=== PATIENT | female | born 1955 ===

== ENCOUNTER 2020-06-20 12:45 | Outpatient (REF) | payer MEDICARE, MEDICAID, SELFPAY ==
[2020-06-20 14:01] LABS: Alanine Aminotransferase 17 U/L (0-31); Alkaline Phosphatase 131 U/L (39-117); Anion Gap 11 (12-20); Aspartate Amino Transferase 20 U/L (5-31); Bilirubin Total 0.5 mg/dL (0.0-1.0); Blood Urea Nitrogen 17 mg/dL (9-16); Calcium 9.7 mg/dL (8.4-10.2); Carbon Dioxide 31 mmol/L (22-29); Chloride 104 mmol/L (96-108); Cholesterol 236 mg/dL; Estimated Glomerular Filt Rate > 60; Glucose Fasting 145 mg/dL (60-99); HDL Cholesterol 76 mg/dL; LDL Cholesterol Calculated 137 mg/dl; Potassium 4.1 mmol/l (3.3-5.1); Sodium 142 mmol/L (135-145); Total Protein 7.3 g/dL (6.5-8.0); Triglycerides 115 mg/dL
== END 2020-06-20 12:46 | disposition home or self-care (01) ==
LOC: HO.LAB 12:45
PROVIDERS: PCP Internal Medicine; Visit Provider Internal Medicine
DX: I10 Essential (primary) hypertension (principal)
CPT/HCPCS: 80053; 80061

== ENCOUNTER 2020-11-03 09:44 | Outpatient (REF) | payer MEDICARE, MEDICAID, SELFPAY ==
[2020-11-03 11:26] LABS: Alanine Aminotransferase 14 U/L (0-31); Albumin Level 3.9 g/dL (3.5-5.0); Alkaline Phosphatase 108 U/L (39-117); Anion Gap 15 (12-20); Aspartate Amino Transferase 20 U/L (5-31); Bilirubin Total 0.4 mg/dL (0.0-1.0); Blood Urea Nitrogen 16 mg/dL (9-16); Calcium 9.3 mg/dL (8.4-10.2); Carbon Dioxide 24 mmol/L (22-29); Chloride 106 mmol/L (96-108); Cholesterol 246 mg/dL; Estimated Glomerular Filt Rate > 60; Glucose Fasting 95 mg/dL (60-99); HDL Cholesterol 80 mg/dL; LDL Cholesterol Calculated 150 mg/dl; Potassium 4.3 mmol/L (3.3-5.1); Sodium 141 mmol/L (135-145); Total Protein 7.1 g/dL (6.5-8.0); Triglycerides 83 mg/dL
[2020-11-03 11:57] LABS: Creatinine Urine 137.57 mg/dL; Microalbum/Creatinine Ratio Ur 3.6 ug/mg cr
[2020-11-03 12:48] LABS: Folate 15.5 ng/mL (> or = 4.0); Vitamin B12 704 pg/mL (200-900)
[2020-11-09 12:31] LABS: Vitamin D 25-OH, D2 <4 ng/mL; Vitamin D 25-OH, D3 32 ng/mL; Vitamin D 25-OH, Total 32 ng/mL (30-100)
== END 2020-11-03 09:45 | disposition home or self-care (01) ==
LOC: HO.LAB 09:44
PROVIDERS: PCP Internal Medicine; Visit Provider Internal Medicine
DX: E11.9 Type 2 diabetes mellitus without complications (principal); E55.9 Vitamin D deficiency, unspecified; E53.8 Deficiency of other specified B group vitamins; E78.5 Hyperlipidemia, unspecified
CPT/HCPCS: 36415; 80053; 80061; 82043; 82306; 82607; 82746

== ENCOUNTER 2020-11-09 13:40 | Outpatient (REF) | payer MEDICARE, MEDICAID, SELFPAY ==
[2020-11-09 15:23] LABS: MANUAL DIFF FLAG NO
[2020-11-09 15:29] LABS: Basophils Percent Auto 0.4 % (0-2); Eosinophils Absolute Auto 0.1 X10*3/uL (0.0-0.4); Eosinophils Percent Auto 0.7 % (0-4); Hematocrit 37.7 % (37-47); Hemoglobin 12.1 g/dl (12.0-16.0); Imm Gran Abs Auto 0.02 X10*3/uL (0.00-0.03); Imm Gran Pct Auto 0.3 % (0.0-0.4); Lymphocytes Absolute Auto 2.5 X10*3/uL (1.2-4.9); Lymphocytes Percent Auto 36.6 % (20-40); Mean Corpuscular HGB Conc 32.1 g/dl (31.0-35.0); Mean Corpuscular Hemoglobin 32.2 pg (27.0-33.0); Mean Corpuscular Volume 100.3 fL (80-98); Mean Platelet Volume 10.2 fL (9.4-12.3); Monocytes Absolute Auto 0.6 X10*3/uL (0.1-1.2); Monocytes Percent Auto 8.7 % (2-11); Neutrophils Absolute Auto 3.6 X10*3/uL (2.0-8.3); Neutrophils Percent Auto 53.3 % (45-73); Platelet Count 337 X10*3/uL (160-400); Red Blood Count 3.76 X10*6/uL (4.20-5.50); Red Cell Distribution Width 12.3 % (11.0-16.0); White Blood Count 6.8 X10*3/uL (4.8-10.8)
[2020-11-09 15:52] LABS: Alanine Aminotransferase 13 U/L (0-31); Albumin Level 3.9 g/dL (3.5-5.0); Alkaline Phosphatase 106 U/L (39-117); Anion Gap 13 (12-20); Aspartate Amino Transferase 17 U/L (5-31); Bilirubin Total 0.5 mg/dL (0.0-1.0); Blood Urea Nitrogen 20 mg/dL (9-16); C Reactive Protein 0.45 mg/dL (< or = 0.50); Calcium 9.8 mg/dL (8.4-10.2); Carbon Dioxide 26 mmol/L (22-29); Chloride 108 mmol/L (96-108); Estimated Glomerular Filt Rate 45; Glucose Random 136 mg/dL (60-115); Potassium 4.1 mmol/L (3.3-5.1); Sodium 143 mmol/L (135-145); Total Protein 6.9 g/dL (6.5-8.0)
[2020-11-09 16:15] LABS: Erythrocyte Sedimentation Rate 23 MM/HR (0-20)
== END 2020-11-09 13:41 | disposition home or self-care (01) ==
LOC: HO.LAB 13:40
PROVIDERS: PCP Internal Medicine; Visit Provider Student in an Organized Health Care Education/Training Program
DX: M35.3 Polymyalgia rheumatica (principal); Z79.52 Long term (current) use of systemic steroids
CPT/HCPCS: 36415; 80053; 85025; 85652; 86140; 99212

== ENCOUNTER 2021-01-02 | Outpatient (REF) | payer MEDICARE, MEDICAID, SELFPAY ==
--- NOTE | ~2021-01-02 | CT_ITS ---
EXAMINATION: CT HEAD WITHOUT CONTRAST CLINICAL INFORMATION: Syncope. Collapse. COMPARISON: None. TECHNIQUE: Contiguous axial imaging was performed from the skull base to vertex without intravenous administration of contrast. Coronal and sagittal reformatted images are performed at the CT scanner. [This CT examination was performed using dose optimization techniques as appropriate, variously including the following: *Automated exposure control *Adjustment of mA and/or kV according to patient size (this includes techniques or standardized protocols for targeted exams where dose is matched to indication/reason for exam; i.e. extremities or head) *Use of iterative reconstruction technique] DLP: 766 mGy-cm. FINDINGS: There is no evidence of acute intracranial hemorrhage or territorial infarction. No abnormal mass-effect or midline shift is seen. Johnston to white matter differentiation is well preserved. No extra-axial fluid collections are identified. The ventricles are normal in size. There is no abnormal attenuation within the brain parenchyma. There is no osseous abnormality. The mastoid air cells and visualized portions of the paranasal sinuses are well-aerated. CT/CT head/brain wo con IMPRESSION: No acute intracranial pathology.
--- NOTE | ~2021-01-02 | US_ITS ---
EXAMINATION: US EXTRACRANIAL CAROTID DUPLEX, BILATERAL CLINICAL INFORMATION: This is a 65-year-old female with syncope and collapse. Hypertension. Hyperlipidemia. Diabetes. COMPARISON: None TECHNIQUE: Real-time ultrasound and Doppler techniques (integrating B-mode 2-D vascular images, Doppler spectral analysis and color-flow Doppler imaging) were utilized to interrogate the extracranial carotid arteries, the vertebral arteries and proximal subclavian arteries bilaterally. The degree of stenosis is determined by criteria similar to NASCET. FINDINGS: Right Side: 1. There is minimal atherosclerotic plaque seen in the bifurcation/proximal ICA region. 2. The common carotid artery PSV proximally is 81 cm/s and distally 55 cm/s. 3. The proximal internal carotid artery velocities are 63 cm/s systolic and 11 cm/s diastolic. 4. The proximal external carotid artery PSV is 90 cm/s. 5. The vertebral artery shows antegrade flow. 6. The subclavian artery waveforms are normal. Left Side: 1. There is minimal atherosclerotic plaque seen in the bifurcation/proximal ICA region. 2. The common carotid artery PSV proximally is 86 cm/s and distally 67 cm/s. 3. The proximal internal carotid artery velocities are D5 cm/s systolic and 19 cm/s diastolic. 4. The proximal external carotid artery PSV is 61 cm/s. 5. The vertebral artery shows antegrade flow. 6. The subclavian artery waveforms are normal. US/US carotid duplex BI IMPRESSION: 1. RIGHT: Minimal, non-hemodynamically significant stenosis of the proximal right internal carotid artery corresponding to a 0-49% stenosis by velocity criteria. 2. LEFT: Minimal, non-hemodynamically significant stenosis of the proximal left internal carotid artery corresponding to a 0-49% stenosis by velocity criteria.
== END 2021-01-02 00:01 | disposition home or self-care (01) ==
LOC: HO.CT
PROVIDERS: Visit Provider Internal Medicine
DX: R55 Syncope and collapse (principal)
CPT/HCPCS: 70450; 93880

== ENCOUNTER 2021-01-02 12:36 | Outpatient (REF) | payer MEDICARE, MEDICAID, SELFPAY | END 2021-01-02 12:37 | disposition home or self-care (01) | LOC: HO.US 12:36 | PROVIDERS: Visit Provider Internal Medicine | DX: Z13.89 Encounter for screening for other disorder (principal) ==

== ENCOUNTER → 2021-01-25 13:05 | Outpatient (REF) | payer MEDICARE, MEDICAID, SELFPAY ==
--- NOTE | 2021-01-25 13:09 | CA_ITS ---
Transthoracic Echocardiogram Amended Patient (Last, First, Middle): Mini Porter, Gender: Female Date of : 1955 Age: 65 Procedure Date: 01/25/2021 Procedure Type: Transthoracic Echocardiogram Location: OP Height: 162.56 cm Weight: 89.81 kg BSA: 1.95 m2 Heart Rate: bpm BP: 122 / 80 mmHg Tube Wrapper: Referring MD: Tegan Henriquez MD Symptoms: R55 - Syncope and collapse Study Quality: Fair ECG Rhythm: Sinus Conclusions: - The left ventricular systolic function is mildly decreased. The calculated ejection fraction is 43% by biplane method. - The basal inferior and mid inferior segments are hypokinetic. - No obvious valvular pathology seen on this study. Findings Left Ventricle Normal left ventricular cavity size. There is mildly increased left ventricular wall thickness. The left ventricular systolic function is mildly decreased. The calculated ejection fraction is 43% by biplane method. There is mild global hypokinesis. E/E prime ratio is between 8 and 15 consistent with indeterminate filling pressures. Evidence suggests grade I (mild) diastolic dysfunction. Wall Motion Rest Echo Findings The basal inferior and mid inferior segments are hypokinetic. Right Ventricle Normal right ventricular cavity size and systolic function. Atria Both atria are normal in size. Aortic Valve There is a normal trileaflet aortic valve. There is mild calcification of the aortic valve. There is no aortic valve stenosis. There is trace (trivial) aortic valve regurgitation. Mitral Valve The mitral valve appears normal. There is trace mitral valve regurgitation. There is no mitral valve stenosis. Pulmonic Valve The pulmonic valve is likely normal. Tricuspid Valve Normal tricuspid valve structure. There is no tricuspid valve regurgitation. The pulmonary artery systolic pressure is normal. Great Vessels The aortic annulus, sinuses of valsalva, and asc aorta are normal in size. Venous The inferior vena cava is normal in size and collapses greater than 50% with inspiration. Pericardium/Pleural There is no evidence of pericardial effusion. Prior Study Comparison Changes noted compared to prior study dated: 08/07/2017. LVEF slightly lower with wall motion abnormality. Recommendations, Care & Conclusions No obvious valvular pathology seen on this study. Measurements 2D Linear Measurements IVSd: 1.07 0.6-0.9/0.6-1.0 cm LVIDd: 3.30 3.9-5.3/4.2-5.9 cm LVIDd Index: 1.69 2.4-3.2/2.2-3.1 cm/m2 LVIDs: 2.95 2.0-3.6 cm LVPWd: 1.03 0.7-1.1 cm Ao Root: 3.80 2.1-3.5 cm LA Diam: 2.30 2.7-3.8/3.0-4.0 cm LAIDs Index: 1.18 1.5-2.3 cm/m2 LV Mass: 126.39 67-162/88-224 g LV Mass Index: 64.81 43-95/49-115 g/m2 LVOT Diam: 2.30 3.0+(-)1.3 cm 2D Systolic Function EF 4C: 44.30 >55% EF 2C: 42.10 >55% EF BiP: 43.40 >55% Mitral Valve MV Pk E: 0.42 MV PK A: 0.82 MV Decel Time: 217.00 E/A: 0.50 E'Lateral: 3.05 E'Medial: 4.24 E/E' Med: 9.90 E/E' Lat: 13.80 PHT: 63.00 MVA PHT: 3.49 Decel Leslie: 1.94 Aortic Valve AoV Pk Sravan: 1.16 AoV Mn Sravan: 0.75 AoV VTI: 0.23 AoV Pk Grad: 5.00 Aov Mn Grad: 3.00 MUSHTAQ Cont.VTI: 2.46 LVOT LVOT Pk Sravan: 0.57 LVOT Mn Sravan: 0.33 LVOT VTI: 0.14 LVOT Pk Grad: 1.00 LVOT Mn Grad: 1.00 LVOT Diam: 2.30 LVOT Area: 4.15 Diastolic Function MV Pk E: 0.42 MV Pk A: 0.82 E/A: 0.50 E'Medial: 4.24 E/E' Med: 9.90 E' Laterial: 3.05 E/E' Lat: 13.80 Tricuspid Valve TR Pk Sravan: 2.00 TR Pk Grad: 16.00 RA Press: 3.00 RVSP: 19.00 Great Vessels Aorta Ao Root-2D: 3.80 2.0-3.7 cm Ao Asc: 3.10 2.1-3.4 cm Pulmonary Valve PV Pk Sravan: 0.81 Peak PV Grad: 3.00 Updated in Other Vendor System with Status of Final Patrice Barajas MD electronically signed on 01/25/2021 4:45:57 PM with status of Final
== END ==
LOC: HO.CARD 13:05
PROVIDERS: Visit Provider Internal Medicine
DX: R55 Syncope and collapse (principal)
CPT/HCPCS: 93306; Q9957

== ENCOUNTER 2022-04-27 13:20 | Outpatient (REF) | payer MEDICARE, MEDICAID, SELFPAY ==
[2022-04-27 13:34] LABS: MANUAL DIFF FLAG NO
[2022-04-27 14:25] LABS: Basophils Percent Auto 0.4 % (0-2); Eosinophils Absolute Auto 0.1 X10*3/uL (0.0-0.4); Hematocrit 38.3 % (37.0-47.0); Hemoglobin 12.3 g/dl (12.0-16.0); Imm Gran Abs Auto 0.01 X10*3/uL (0.00-0.03); Imm Gran Pct Auto 0.1 % (0.0-0.4); Lymphocytes Absolute Auto 2.9 X10*3/uL (1.2-4.9); Lymphocytes Percent Auto 41.6 % (20-40); Mean Corpuscular HGB Conc 32.1 g/dl (31.0-35.0); Mean Corpuscular Hemoglobin 30.9 pg (27.0-33.0); Mean Corpuscular Volume 96.2 fL (80.0-98.0); Mean Platelet Volume 10.1 fL (9.4-12.3); Monocytes Absolute Auto 0.6 X10*3/uL (0.1-1.2); Monocytes Percent Auto 7.9 % (2-11); Neutrophils Absolute Auto 3.4 x10*3/uL (2.0-8.3); Platelet Count 355 X10*3/uL (160-400); Red Blood Count 3.98 X10*6/uL (4.20-5.50); Red Cell Distribution Width 12.8 % (11.0-16.0); White Blood Count 6.9 X10*3/uL (4.8-10.8)
[2022-04-27 14:37] LABS: Alanine Aminotransferase 14 U/L (0-31); Albumin Level 3.9 g/dL (3.5-5.0); Alkaline Phosphatase 114 U/L (39-117); Anion Gap 14 (12-20); Aspartate Amino Transferase 17 U/L (5-31); Bilirubin Total 0.3 mg/dL (0.0-1.0); Blood Urea Nitrogen 19 mg/dL (9-16); Carbon Dioxide 27 mmol/L (22-29); Chloride 104 mmol/L (96-108); Cholesterol 325 mg/dL; Estimated Glomerular Filt Rate 48; Glucose Random 83 mg/dL (60-115); HDL Cholesterol 73 mg/dL; LDL Cholesterol Calculated 227 mg/dl; Sodium 141 mmol/L (135-145); Total Protein 7.4 g/dL (6.5-8.0); Triglycerides 125 mg/dL
== END 2022-04-27 13:21 | disposition home or self-care (01) ==
LOC: HO.LAB 13:20
PROVIDERS: PCP Internal Medicine; Visit Provider Nurse Practitioner Family
DX: E78.5 Hyperlipidemia, unspecified (principal); E11.9 Type 2 diabetes mellitus without complications; I10 Essential (primary) hypertension
CPT/HCPCS: 36415; 80053; 80061; 85025

== ENCOUNTER 2022-05-03 09:03 | Outpatient (REF) | payer MEDICARE, MEDICAID, SELFPAY ==
[2022-05-03 10:55] LABS: Cholesterol 329 mg/dL; HDL Cholesterol 71 mg/dL; LDL Cholesterol Calculated 240 mg/dl; Triglycerides 93 mg/dL
== END 2022-05-03 09:04 | disposition home or self-care (01) ==
LOC: HO.LAB 09:03
PROVIDERS: PCP Internal Medicine; Visit Provider Nurse Practitioner Family
DX: E78.5 Hyperlipidemia, unspecified (principal)
CPT/HCPCS: 36415; 80061

== ENCOUNTER 2022-05-15 12:36 | Outpatient (REF) | payer MEDICARE, MEDICAID, SELFPAY ==
--- NOTE | ~2022-05-15 | MM_ITS ---
EXAMINATION: MM SCREENING DIGITAL BREAST TOMOSYNTHESIS, BILATERAL CLINICAL INFORMATION: Screening. Asymptomatic. Bilateral breast reduction surgery. Patient also states history of right breast cancer in 2006 COMPARISON: Mammography: January 04, 2017 and studies dating back to March 23, 2010 TECHNIQUE: Digital breast tomosynthesis is performed in both the craniocaudal and mediolateral oblique views along with computer-aided detection (CAD). Synthesized 2D images are generated from the tomosynthesis. Left exaggerated craniocaudal view also performed. FINDINGS: There are scattered areas of fibroglandular density (ACR BI-RADS breast composition Category b). There are no significant masses, abnormal calcifications, or other abnormalities. MM/MM tomosynthesis screening BI IMPRESSION: No significant changes from prior exam. ASSESSMENT: BI-RADS 1: Negative RECOMMENDATION: Routine annual mammography screening. This patient's information was entered into a reminder system with a target due date for their next mammogram.
--- NOTE | ~2022-05-15 | MM_ITS ---
EXAMINATION: BONE DENSITOMETRY CLINICAL INDICATION: Asymptomatic menopausal state. COMPARISON: Baseline BD dated 04/17/2019. TECHNIQUE: Using a [employer] DXA System (software version: 13.1) manufactured by [employer], dual-energy x-ray absorptiometry was performed of the lumbar spine and left hip. The images are of good technical quality. Summary results are attached. FINDINGS: AP SPINE L1-L4: Current: BMD 1.252 g/cm2, Z-score 1.5, T-score 0.6, normal, 5.7% increase from baseline (<5% change is not significant). Baseline: BMD 1.184 g/cm2. LEFT FEMUR, NECK: Current: BMD 0.832 g/cm2, Z-score -0.4, T-score -1.5, osteopenia. Baseline: BMD 0.913 g/cm2. LEFT FEMUR, TOTAL: Current: BMD 0.884 g/cm2, Z-score -0.2, T-score -1.0, normal, 12.9% decrease from baseline (<5% change is not significant). Baseline: BMD 1.015 g/cm2. IDENTIFIED RISK FACTORS: Rheumatoid arthritis, recurrent falls, height loss. Early menopause, secondary osteoporosis, glucocorticoids (chronic), thiazide, hysterectomy. HISTORY OF FRACTURE: None listed. MEDICATIONS: Vitamin D. MM/XR DEXA axial skeleton IMPRESSION: 1. DIAGNOSIS: Osteopenia based on the lowest T-score value of -1.5 in the femoral neck applying World Health Organization criteria. 2. 10-YEAR FRACTURE RISK PREDICTION, FRAX: Major osteoporotic fracture (clinical spine, forearm, hip or shoulder) 10.0%. Hip fracture 1.4%. 3. Treatment Recommendations: NOF guidelines recommend consideration for treatment in postmenopausal women and men age 50 and older presenting with the following: -A hip or vertebral (clinical or morphometric) fracture. -T-score less than or equal to -2.5 at the femoral neck or spine after appropriate evaluation to exclude secondary causes. -Low bone mass at the hip or spine and a 10-year fracture probability by FRAX of greater than or equal to 3% for hip fracture or greater than or equal to 20% for major osteoporotic fracture based on the [place] adapted WHO algorithm. 4. Other Recommendations: All treatment decisions require clinical judgment and consideration of individual patient factors, including patient preferences, comorbidities, previous drug use, risk factors not captured in the FRAX model (e.g. frailty, falls, vitamin D deficiency, increased bone turnover, interval significant decline in bone density) and possible under or overestimation of fracture risk by FRAX. Additional medical evaluation for secondary cause of low bone mineral density may be appropriate. FUTURE SCAN RECOMMENDATION: People with diagnosed cases of osteoporosis or at high risk for fracture should have regular bone mineral density tests. For patients eligible for Medicare, routine testing is allowed once every 2 years. The testing frequency can be increased to one year for patients who have rapidly progressing disease, those who are receiving or discontinuing medical therapy to restore bone mass, or have additional risk factors.
== END 2022-05-15 12:37 | disposition home or self-care (01) ==
LOC: HO.MAMMO 12:36
PROVIDERS: PCP Internal Medicine; Visit Provider Nurse Practitioner Family
DX: Z12.31 Encounter for screening mammogram for malignant neoplasm of breast (principal); Z13.820 Encounter for screening for osteoporosis; Z78.0 Asymptomatic menopausal state
CPT/HCPCS: 77063; 77067; 77080

== ENCOUNTER 2023-01-15 11:03 | Outpatient (AMB) | payer MEDICARE, MEDICAID, SELFPAY ==
[2023-01-15 11:17] VITALS: BP 136/69; PULSE 64; BMI 36.6
--- NOTE | 2023-01-15 11:17 | A.OFFVIS_ITS ---
Intake Vital Signs 01/15/23 11:17 Height 5 ft Weight 187 lb 6.287 oz BMI 36.6 BP 136/69 Blood Pressure Location Lt radial Position Sitting Pulse 64 Intake Visit Reasons: Colonoscopy Screening Intake Note: Mini presents in office as a new.patient for a colonoscopy screening PT CC: Stomach pains - she was given a medication in the DR (Linzess 290MCG) and she states she needs a Rx because she cannot afford the medication. She states that the Linzess works for her so much and she is unable to get it without prescription. She states that she has CIC. 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 No polyps found. Patient has a family history of colorectal cancer and screening is to be done every 5 years. Patient's father was diagnosed with colorectal cancer as well as patient's brother. Patient will be going back to [facility] [place] and will be back in September. She is requesting to have the procedure then. Patient denies melena, hematochezia, unintentional weight loss or ribbon like stools. Patient denies any dyspepsia, dysphagia or odynophagia. Patient states that she was given Linzess in [facility] [place] and did well and is requesting a script. Patient requests 90 day supply patient denies any other GI concerning symptoms. 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 Postmenopausal Syncope Surgical History History of abdominoplasty History of bilateral breast reduction surgery History of colonoscopy History of total abdominal hysterectomy Family History Father Hypertension Mother Hypertension Cancer Maternal Grandmother Stroke Social History Housing: Apartment Alcohol intake: never Patient Tobacco Use Status: Never used Tobacco service: No Current occupational status: retired Cognitive needs: No Hearing needs: No Vision needs: No Review of Systems Const Denies weight gain and Denies weight loss ENT Reports no additional complaints, Denies dysphagia and Denies odynophagia Card Reports no additional complaints Resp Reports no additional complaints GI Denies abdominal pain, Denies belching, Denies melena, Denies bloating, Denies change in bowel habits, Reports constipation, Denies dysphagia, Denies excessive flatus, Denies dyspepsia, Denies heartburn, Denies diarrhea, Denies loose stools, Denies nausea, Denies odynophagia and Denies vomiting Reports no additional complaints Musc Reports no additional complaints Neuro Reports no additional complaints Psych Reports no additional complaints Endo Reports no additional complaints Physical Exam Vital Signs: Last Vital Signs Pulse 64 01/15/23 11:17 BP 136/69 01/15/23 11:17 BMI result Body Mass Index 36.6 Const General: healthy appearing, no acute distress and well developed Nutritional Appearance: obese Orientation/consciousness: patient oriented x3 HEENT Head: Yes normal to inspection, Yes normocephalic and Yes atraumatic Face and sinus: Yes normal facial exam Mouth: Normal oral and palatal mucosa present Throat: Yes posterior oropharynx normal, Yes tonsils normal and Yes uvula midline Eyes General: appearance normal, both eyes and all related structures Neck Neck: Yes normal visual inspection, Yes full ROM and Yes trachea midline Thyroid: Thyroid normal Resp Effort & Inspection: normal respiratory effort, able to speak in complete sentences, no tracheal deviation and symmetric chest movement Auscultation: clear to auscultation bilaterally Cardio Rate: regular rate Heart sounds: S1 normal heart sound present and S2 normal heart sound present GI Inspection: Yes normal to inspection, No distended and Yes obesity Palpation (GI): Soft to palpation, not firm, nontender and No hepatosplenomegaly present Auscultation: normal bowel sounds General: Yes no CVA tenderness Back/Spine/Pelvis Back: no CVA tenderness Skin General skin exam: elasticity normal, turgor normal and dry skin Neuro General: patient oriented x3 Psych Appearance: grossly normal Mental Status: mental status grossly normal Speech and movement: Normal speech and movement present Affect: normal affect Assessment & Plan Assessment & Plan (1) 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: Code(s): K59.09 - Other constipation Plan: Patient will be given script for Linzess as requested. Patient was also encouraged to increase fluid intake and activity to promote better bowel motility. (2) Screening for colon cancer: Code(s): Z12.11 - Encounter for screening for malignant neoplasm of colon Plan: Patient is leaving to [facility] [place] next week January 23. Will make appointment for colonoscopy in September when she returns. Patient denies any melena, hematochezia, unintentional weight loss or ribbon like stools. Patient reports that she has palpitations and chest pressure was seen in the hospital in [facility] [place] will send referral for Cardiology to clear her before the procedure (3) Family history of colorectal cancer: Code(s): Z80.0 - Family history of malignant neoplasm of digestive organs Plan: As mentioned above in HPI patient has a family history of colorectal cancer patient's father and her brother were diagnosed with colorectal cancer. Patient denies any melena, hematochezia, unintentional weight loss or ribbon like stoo ls. Will book colonoscopy in September, patient is leaving for [facility] [place] January 23. Patient was encouraged to get it done in [facility] [place] if she is on able to wait till she returns. Patient is agreeable to this plan and verbalizes understanding of instructions. She was given the opportunity to ask questions and all questions answered. Thank you for allowing me to participate in her care Orders: Referrals Cardiology Referral [id number] - Encounter for preprocedural cardiovascular examination Piper Julio Hernandez, [employer] COLL[employer] SETTER-BC Medications: New linaclotide (Linzess) 290 mcg PO QAM 30 caps 4RF K59.00 - Constipation, unspecified Piper D David, [employer]LL[employer] SETTER-BC linaclotide (Linzess) 290 mcg PO QAM 90 caps 2RF K59.00 - Constipation, unspecified Piper D David, [employer]LL[employer]-BC Refilled atorvastatin 80 mg PO DAILY 90 tabs 3RF 90 days E78.5 - Hyperlipidemia, unspecified Tegan Henriquez MD fluticasone propionate 50 mcg/actuation administer into each nostril 1 spray intranasal DAILY 16 grams 0RF Tegan Henriquez MD hydrochlorothiazide 25 mg PO DAILY 90 tabs 3RF 90 days Tegan Hneriquez MD Quality Reporting (2019) Adult (CMS 138/2/22/69) Smoking risk assessment performed?: Yes Coding Level of Care Code New Pt Level 3 (82246) Diagnoses 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 K59.09 Screening for colon cancer Z12.11 Family history of colorectal cancer Z80.0 Time Spent (min) 40 Comment 30 minutes spent with patient and additional 10 minutes spent reviewing her records
== END 2023-01-15 12:00 | disposition home or self-care (01) ==
PROVIDERS: PCP Internal Medicine; Visit Provider Nurse Practitioner Family
DX: K59.09 Other constipation (principal); Z12.11 Encounter for screening for malignant neoplasm of colon; Z80.0 Family history of malignant neoplasm of digestive organs
CPT/HCPCS: 99203

== ENCOUNTER → 2023-01-15 11:03 | Outpatient (BNVA) | payer MEDICARE, MEDICAID, SELFPAY | PROVIDERS: PCP Internal Medicine; Visit Provider Nurse Practitioner Family | DX: Z12.11 Encounter for screening for malignant neoplasm of colon (principal); K59.09 Other constipation; Z80.0 Family history of malignant neoplasm of digestive organs | CPT/HCPCS: 99202 ==

== ENCOUNTER 2023-01-18 10:23 | Outpatient (REF) | payer MEDICARE, MEDICAID, SELFPAY ==
[2023-01-18 10:47] LABS: MANUAL DIFF FLAG NO
[2023-01-18 11:56] LABS: Appearance Urine Clear; Color Urine Yellow; Glucose Urine UA Negative (Negative); Leukocyte Esterase Urine Negative (Negative); Nitrite Urine Negative (Negative); PH 5.5 (5.0-9.0); Urine Blood Negative (Negative); Urine Ketones Negative (Negative); Urine Protein Negative (Neg-Trace)
[2023-01-18 12:00] LABS: Basophils Percent Auto 0.5 % (0-2); Eosinophils Absolute Auto 0.1 X10*3/uL (0.0-0.4); Eosinophils Percent Auto 1.6 % (0-4); Hematocrit 39.1 % (37.0-47.0); Hemoglobin 12.6 g/dl (12.0-16.0); Imm Gran Abs Auto 0.02 X10*3/uL (0.00-0.03); Imm Gran Pct Auto 0.4 % (0.0-0.4); Lymphocytes Absolute Auto 2.6 X10*3/uL (1.2-4.9); Lymphocytes Percent Auto 46.1 % (20-40); Mean Corpuscular HGB Conc 32.2 g/dl (31.0-35.0); Mean Corpuscular Hemoglobin 32.1 pg (27.0-33.0); Mean Corpuscular Volume 99.5 fL (80.0-98.0); Mean Platelet Volume 10.6 fL (9.4-12.3); Monocytes Absolute Auto 0.4 X10*3/uL (0.1-1.2); Monocytes Percent Auto 7.5 % (2-11); Neutrophils Absolute Auto 2.5 x10*3/uL (2.0-8.3); Neutrophils Percent Auto 43.9 % (45-73); Platelet Count 315 X10*3/uL (160-400); Red Blood Count 3.93 X10*6/uL (4.20-5.50); Red Cell Distribution Width 12.7 % (11.0-16.0); White Blood Count 5.6 X10*3/uL (4.8-10.8)
[2023-01-18 12:31] LABS: Cholesterol 245 mg/dL; HDL Cholesterol 77 mg/dL; LDL Cholesterol Calculated 144 mg/dl; Triglycerides 123 mg/dL
[2023-01-18 12:40] LABS: Creatinine Urine 99.47 mg/dL
[2023-01-18 12:44] LABS: Alanine Aminotransferase 21 U/L (0-31); Albumin Level 3.9 g/dL (3.5-5.0); Alkaline Phosphatase 107 U/L (39-117); Anion Gap 11 (12-20); Aspartate Amino Transferase 21 U/L (5-31); Bilirubin Total 0.8 mg/dL (0.0-1.0); Blood Urea Nitrogen 22 mg/dL (9-16); Calcium 10.9 mg/dL (8.4-10.2); Carbon Dioxide 26 mmol/L (22-29); Chloride 109 mmol/L (96-108); Cholesterol 244 mg/dL; Estimated Glomerular Filt Rate > 60; Glucose Fasting 110 mg/dL (60-99); HDL Cholesterol 77 mg/dL; LDL Cholesterol Calculated 143 mg/dl; Potassium 4.4 mmol/L (3.3-5.1); Sodium 142 mmol/L (135-145); Total Protein 7.7 g/dL (6.5-8.0); Triglycerides 123 mg/dL
[2023-01-18 12:52] LABS: TSH reflex Free T4 1.82 uIU/mL (0.32-4.0); Vitamin D 25-OH Total 41.1 ng/mL (>30)
[2023-01-18 13:02] LABS: Folate 8.5 ng/mL (> or = 4.0); Vitamin B12 775 pg/mL (200-900)
== END 2023-01-18 10:24 | disposition home or self-care (01) ==
LOC: HO.LAB 10:23
PROVIDERS: PCP Internal Medicine; Visit Provider Nurse Practitioner Family
DX: E78.5 Hyperlipidemia, unspecified (principal); E11.9 Type 2 diabetes mellitus without complications; R68.89 Other general symptoms and signs; E83.52 Hypercalcemia; M85.80 Other specified disorders of bone density and structure, unspecified site
CPT/HCPCS: 36415; 80053; 80061; 81003; 82043; 82306; 82607; 82746; 84443; 85025

== ENCOUNTER 2023-04-18 07:53 | Outpatient (AMB) | payer MEDICARE, MEDICAID, SELFPAY ==
--- NOTE | 2023-04-18 08:31 | A.OFFVIS_ITS ---
Intake Vital Signs 04/18/23 08:34 Height 5 ft 4 in Weight 202 lb 6.15 oz BMI 34.7 BP 160/88 H Blood Pressure Location Lt brachial Position Sitting Pulse 61 Intake Visit Reasons: prev HS 2018/ palps/cp/sob/ [id number] Intake Note: NPV w/ EKG Community Health Educator Required: No Accompanied by: Self / Same As Patient Allergies hydralazine Allergy (Intermediate, Verified 04/18/23 08:35) hypotension Iodinated Contrast Media [IV CONTRAST] Allergy (Intermediate, Verified 04/18/23 08:35) BLISTERED RASH metformin Allergy (Intermediate, Verified 04/18/23 08:35) constipation Medication List - Last Reconciled 04/18/23 by Patrice Barajas MD atorvastatin 80 mg PO DAILY 90 days bisoprolol fumarate 5 mg PO DAILY blood sugar diagnostic (FreeStyle Lite Strips) test daily blood-glucose meter (FreeStyle Lite Meter kit) test daily budesonide-formoterol 160-4.5 mcg/actuation 2 puffs inhalation BID candesartan 32 mg PO DAILY fluticasone propion-salmeterol 500-50 mcg/dose 1 ea PO BID fluticasone propionate 50 mcg/actuation 1 spray intranasal DAILY gabapentin 300 mg PO BID 90 days hydrochlorothiazide 25 mg PO DAILY 90 days ibuprofen 600 mg PO Q8H PRN lancets (FreeStyle Lancets) test daily linaclotide (Linzess) 290 mcg PO QAM pioglitazone 30 mg PO DAILY semaglutide 1 mg (0.75 mL) subcut QWEEK HPI HPI Comments History of Present Illness Details Mini has been referred for cardiac evaluation. It seems she needs to go for colonoscopy. We have last seen her in 2018. There is a history of cardiac catheterization 2014 that had revealed only minor irregularities. Otherwise, no known cardiac issues like valvular heart disease or arrhythmias or cardiomyopathy. She does have risk factors including hypertension and diabetes. She states that when she is exerting herself like doing physical activity she can feel short of breath. However, absolutely has no anginal-type symptoms. Sometimes she may feel a vague discomfort in the chest but when she starts doing something physical like walking, she actually feels better and hence this is not cardiac at all. She states she is from [facility] [place] and actually spends more time there and only comes here for medical appointments. Also patient states she has gained about 20 lb or so recently. That might also cause shortness of breath. 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 Polymyalgia rheumatica Postmenopausal Syncope Surgical History History of abdominoplasty History of bilateral breast reduction surgery History of colonoscopy History of total abdominal hysterectomy Family History Father Hypertension Mother Hypertension Cancer Maternal Grandmother Stroke Social History Housing: Apartment Alcohol intake: never Patient Tobacco Use Status: Never used Tobacco service: No Current occupational status: retired Cognitive needs: No Hearing needs: No Vision needs: No Review of Systems Const Denies chills, Denies daytime sleepiness, Denies fatigue, Denies fever(s), Denies frequent falls, Denies night sweats, Denies snoring, Denies weakness, Denies weight gain and Denies weight loss Eyes Denies loss of vision ENT Denies dizziness and Denies hearing loss Card Denies chest pain, Denies chest pain with activity, Denies syncope, Denies rapid heart rate, Denies edema, Denies claudication, Denies leg edema, Denies lightheadedness, Denies palpitations, Denies dyspnea, Denies dyspnea on exertion and Denies orthopnea Resp Denies cough, Denies excessive phlegm production, Denies dyspnea, Denies dyspnea on exertion, Denies snoring and Denies wheezing GI Denies abdominal pain, Denies hematochezia, Denies change in bowel habits, Denies change in stool character, Denies heartburn, Denies nausea and Denies vomiting Denies hematuria, Denies urinary frequency and Denies dysuria Musc Denies arthralgias, Denies muscle weakness, Denies numbness and Denies tingling Skin/Breast Denies nail changes and Denies rash Neuro Denies Abnormal speech present, Denies dizziness, Denies syncope, Denies frequent falls, Denies loss of vision, Denies memory loss, Denies numbness, Denies tingling and Denies weakness Psych Denies depression and Denies memory loss Endo Denies fatigue and Denies palpitations Aller/Immun Denies wheezing Physical Exam Vital Signs: Last Vital Signs Pulse 61 04/18/23 08:34 BP 160/88 H 04/18/23 08:34 BMI result Body Mass Index 34.7 Const General: comfortable and no acute distress Orientation/consciousness: patient oriented x3 HEENT Other: Unremarkable Head: Yes normal to inspection Neck Neck: Yes normal visual inspection Chest Chest palpation & inspection: normal inspection of the chest Resp Auscultation: clear to auscultation bilaterally Cardio Palpation: normal PMI Heart sounds: S1 normal heart sound present, S2 normal heart sound present, no gallops, no murmurs and no rubs GI Palpation (GI): Soft to palpation Back/Spine/Pelvis Other: unremarkable Skin General skin exam: no rashes or lesions noted Neuro General: patient oriented x3 Speech: No Abnormal speech present Extrem General: Yes normal to inspection Psych Mental Status: mental status grossly normal Office Procedures EKG Details: EKG with sinus rhythm at 61/Min; no significant ST-T changes and otherwise [place]remarkable[place] [id number], Complete Assessment & Plan Assessment & Plan (1) SOB (shortness of breath): Code(s): R06.02 - Shortness of breath (2) Essential hypertension: Code(s): I10 - Essential (primary) hypertension Plan Per documentation, prior cardiac catheterization 2014 with minimal irregularities but otherwise unremarkable. Shortness of breath could be multifactorial. Weight gain of 20 lb might play a role. High blood pressure may also play a role. We can get an echocardiogram for LV function assessment and any diastolic dysfunction. Otherwise, mainly primary risk factor modification. She states she is going back to [place] in a few weeks and hence will need to coordinate any appointments accordingly. Orders: Orders CA echo transthoracic complete Today R06.02 - Shortness of breath Quality Reporting (2019) Adult ([facility] 138/09/12/68) Smoking risk assessment performed?: Yes Patient Tobacco Use Status: Never used Tobacco Coding Level of Care Code New Pt Level 3 (74588) Diagnoses SOB (shortness of breath) R06.02 Essential hypertension I10 CPT Codes EKG - CPT: 33798-[id number], Complete ([id number])
[2023-04-18 08:34] VITALS: BP 160/88; PULSE 61; BMI 34.7
== END 2023-04-18 08:55 | disposition home or self-care (01) ==
PROVIDERS: PCP Internal Medicine; Visit Provider Internal Medicine
DX: R06.02 Shortness of breath (principal); I10 Essential (primary) hypertension
CPT/HCPCS: 93010; 99213

== ENCOUNTER → 2023-04-18 07:53 | Outpatient (BNVA) | payer MEDICARE, MEDICAID, SELFPAY | PROVIDERS: PCP Internal Medicine; Visit Provider Internal Medicine | DX: R06.02 Shortness of breath (principal); I10 Essential (primary) hypertension | CPT/HCPCS: 93005; 99212 ==

== ENCOUNTER → 2023-04-19 11:13 | Outpatient (BNVA) | payer MEDICARE, MEDICAID, SELFPAY | PROVIDERS: PCP Internal Medicine; Visit Provider Physician Assistant Surgical ==

== ENCOUNTER 2023-04-22 14:04 | Outpatient (AMB) | payer OTHER, SELFPAY ==
[2023-04-22 14:08] VITALS: BP 108/77; PULSE 78; O2SAT 96; BMI 33.5
--- NOTE | 2023-04-22 14:08 | MHC.OFFVIS ---
Intake Vital Signs 04/22/23 14:08 Height 5 ft 4 in Weight 195 lb 1.745 oz BMI 33.5 BP 108/77 Blood Pressure Location Rt brachial Position Sitting Pulse 78 Pulse Source Doppler Pulse Oximetry (%) 96 Oxygen Delivery Method Room Air Intake Visit Reasons: COPD Allergies hydralazine Allergy (Intermediate, Verified 04/22/23 14:13) hypotension Iodinated Contrast Media [IV CONTRAST] Allergy (Intermediate, Verified 04/22/23 14:13) BLISTERED RASH metformin Allergy (Intermediate, Verified 04/22/23 14:13) constipation HPI COPD HPI Details 67-year-old lady, lifetime nonsmoker, previously treated by [facility] pulmonary for ?COPD, also with underlying history of exposure to heart pulled dusts presents complaining of wheezing and cough in when in the [place], but not when in [place] she does have a dog. She denies family history of lung disease. Patient is using Advair 500 and albuterol MDI with suboptimal control of her symptoms. She denies recent exacerbations. [facility] Medical History B12 deficiency 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 COPD (chronic obstructive pulmonary disease) Diabetes mellitus Dyslipidemia Essential hypertension Family history of colorectal cancer terminal [facility] systemic steroid user Polymyalgia rheumatica Postmenopausal Syncope Surgical History History of abdominoplasty History of bilateral breast reduction surgery History of colonoscopy History of total abdominal hysterectomy Family History Father Hypertension Mother Hypertension Cancer Maternal Grandmother Stroke Social History Housing: Apartment Alcohol intake: never Patient Tobacco Use Status: Never used Tobacco service: No Current occupational status: retired Cognitive needs: No Hearing needs: No Vision needs: No Review of Systems Const Denies daytime sleepiness, Denies excessive sweating, Denies fatigue, Denies fever(s), Denies lethargy, Denies malaise, Denies night sweats, Denies snoring and Denies weight loss Eyes Denies blurry vision and Denies itchy eyes ENT Denies nasal congestion, Denies post nasal drip, Denies sinus pain, Denies sinus pressure and Denies other ( Thrush) Card Denies chest pain, Denies pedal edema, Denies dyspnea, Denies orthopnea and Denies paroxysmal nocturnal dyspnea Resp Denies cough, Denies hemoptysis, Denies excessive phlegm production, Denies dyspnea, Denies snoring and Reports wheezing GI Denies abdominal pain and Denies heartburn Musc Denies myalgias, Denies arthralgias and Denies joint swelling Skin/Breast Denies rash Neuro Denies memory loss and Denies seizure-like activity Psych Denies abnormal sleep pattern, Denies anxiety and Denies memory loss Endo Denies excessive sweating, Denies fatigue and Denies heat intolerance Keith/Lymph Denies easy bruising Aller/Immun Denies itchy eyes, Denies seasonal rhinorrhea and Reports wheezing Physical Exam Vital Signs: Last Vital Signs Pulse 78 04/22/23 14:08 BP 108/77 04/22/23 14:08 Pulse Ox 96 04/22/23 14:08 Oxygen Delivery Method Room Air 04/22/23 14:08 BMI result Body Mass Index 33.5 Const General: no acute distress and alert Nutritional Appearance: not obese Orientation/consciousness: Other orientation findings ( oriented) HEENT Head: Yes atraumatic Eyes General: appearance normal, both eyes and all related structures Sclerae: sclerae normal EOM: EOMs intact bilaterally Neck Neck: Yes supple Lymphatic: no lymphadenopathy noted Resp Effort & Inspection: normal respiratory effort and no use of accessory muscles Auscultation: clear to auscultation bilaterally Cardio Rate: regular rate Rhythm: regular rhythm Heart sounds: no gallops, no murmurs and no rubs Skin General skin exam: other ( warm) Extrem General: No clubbing, No cyanosis and No edema Assessment & Plan Assessment & Plan (1) Asthma: Code(s): J45.909 - Unspecified asthma, uncomplicated Plan: Likely underlying asthma of unclear severity. Will obtain full PFT. Will continue on Advair 500 and albuterol MDI. (2) ILD (interstitial lung disease): Code(s): J84.9 - Interstitial pulmonary disease, unspecified Plan: Possible underlying interstitial lung disease secondary to exposure to dusts. Will obtain CT chest for further evaluation. (3) Environmental allergies: Code(s): Z91.09 - Other allergy status, other than to drugs and biological substances Plan: Will obtain IgE level, CBC with differential, and RAST for further evaluation. Orders: Orders Complete Blood Count Auto Diff Today J45.909 - Unspecified asthma, uncomplicated Rast Allergen Today J45.909 - Unspecified asthma, uncomplicated PFT pulmonary function test Today J45.909 - Unspecified asthma, uncomplicated Quality Reporting (2019) Adult ([facility] 138/09/12/68) Smoking risk assessment performed?: Yes Patient Tobacco Use Status: Never used Tobacco Coding Level of Care Code New Pt Level 4 (04427) Diagnoses Asthma J45.909 ILD (interstitial lung disease) J84.9 Environmental allergies Z91.09
== END 2023-04-22 14:39 | disposition home or self-care (01) ==
PROVIDERS: PCP Internal Medicine; Referring Provider Internal Medicine; Visit Provider Internal Medicine Pulmonary Disease
DX: J45.909 Unspecified asthma, uncomplicated (principal); J84.9 Interstitial pulmonary disease, unspecified; Z91.09 Other allergy status, other than to drugs and biological substances
CPT/HCPCS: 99204

== ENCOUNTER 2023-04-22 14:04 | Outpatient (REF) | payer OTHER, SELFPAY ==
[2023-04-22 15:04] LABS: MANUAL DIFF FLAG NO
[2023-04-22 15:37] LABS: Basophils Percent Auto 0.4 % (0-2); Eosinophils Absolute Auto 0.1 X10*3/uL (0.0-0.4); Eosinophils Percent Auto 0.7 % (0-4); Hematocrit 36.8 % (37.0-47.0); Hemoglobin 11.8 g/dl (12.0-16.0); Imm Gran Abs Auto 0.02 X10*3/uL (0.00-0.03); Imm Gran Pct Auto 0.3 % (0.0-0.4); Lymphocytes Absolute Auto 2.6 X10*3/uL (1.2-4.9); Lymphocytes Percent Auto 38.4 % (20-40); Mean Corpuscular HGB Conc 32.1 g/dl (31.0-35.0); Mean Corpuscular Hemoglobin 32.5 pg (27.0-33.0); Mean Corpuscular Volume 101.4 fL (80.0-98.0); Monocytes Absolute Auto 0.5 X10*3/uL (0.1-1.2); Monocytes Percent Auto 7.3 % (2-11); Neutrophils Absolute Auto 3.6 x10*3/uL (2.0-8.3); Neutrophils Percent Auto 52.9 % (45-73); Platelet Count 303 X10*3/uL (160-400); Red Blood Count 3.63 X10*6/uL (4.20-5.50); Red Cell Distribution Width 13.3 % (11.0-16.0); White Blood Count 6.8 X10*3/uL (4.8-10.8)
== END 2023-04-22 14:05 | disposition home or self-care (01) ==
LOC: HO.LAB 14:04
PROVIDERS: PCP Internal Medicine; Visit Provider Internal Medicine Pulmonary Disease
DX: J45.909 Unspecified asthma, uncomplicated (principal); Z91.09 Other allergy status, other than to drugs and biological substances
CPT/HCPCS: 36415; 82785; 85025; 86003

== ENCOUNTER 2023-05-08 13:27 | Outpatient (AMB) | payer OTHER, SELFPAY ==
--- NOTE | 2023-05-08 13:41 | MHC.OFFVIS ---
Intake Vital Signs 05/08/23 13:46 05/08/23 14:01 05/08/23 14:01 Height 5 ft 4 in Weight 200 lb 2.876 oz BMI 34.4 BP 112/62 114/62 100/60 Blood Pressure Location Lt brachial Lt brachial Lt brachial Position Supine Sitting Standing Pulse 68 70 71 Pulse Source Pulse Oximeter Pulse Oximetry (%) 96 Oxygen Delivery Method Room Air Intake Visit Reasons: F/U per pt Accompanied by: self Allergies hydralazine Allergy (Intermediate, Verified 05/08/23 13:48) hypotension Iodinated Contrast Media [IV CONTRAST] Allergy (Intermediate, Verified 05/08/23 13:48) BLISTERED RASH metformin Allergy (Intermediate, Verified 05/08/23 13:48) constipation Medication List - Last Reconciled 05/08/23 by Stephany White NP albuterol sulfate 90 mcg/actuation 2 puffs inhalation Q4-6H PRN 30 days atorvastatin 80 mg PO DAILY 90 days bisoprolol fumarate 5 mg PO DAILY blood sugar diagnostic (FreeStyle Lite Strips) test daily blood-glucose meter (FreeStyle Lite Meter kit) test daily candesartan 32 mg PO DAILY fluticasone propion-salmeterol 500-50 mcg/dose 1 ea PO BID 30 days fluticasone propionate 50 mcg/actuation 1 spray intranasal DAILY gabapentin 300 mg PO BID 90 days hydrochlorothiazide 25 mg PO DAILY 90 days ibuprofen 600 mg PO Q8H PRN lancets (FreeStyle Lancets) test daily linaclotide (Linzess) 290 mcg PO QAM pioglitazone 30 mg PO DAILY semaglutide 1 mg (0.75 mL) subcut QWEEK HPI HPI Comments History of Present Illness Details 67-year-old female presents today for a follow-up per her request. She state she overall feels great but she has episodes that she feels weak and gets blurry vision. She went to an urgent care and was orthostatic. She also reports she gets some palpitations - reports it feels her heart is going fast and occasionally skips a beat. When she gets the palpitations she gets short of breath. Denies syncope or near-syncop.e Reports her blood pressures at home are 150s/90s in the morning and at night. She reports she has checked her blood sugar when this happens and it has been good. She hydrates and eats well. 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 Polymyalgia rheumatica Syncope B12 deficiency Postmenopausal Diabetes mellitus Dyslipidemia COPD (chronic obstructive pulmonary disease) Essential hypertension Surgical History History of colonoscopy History of total abdominal hysterectomy History of bilateral breast reduction surgery History of abdominoplasty Family History Father Hypertension Mother Hypertension Cancer Maternal Grandmother Stroke Social History Housing: Apartment Alcohol intake: never Patient Tobacco Use Status: Never used Tobacco service: No Current occupational status: retired Cognitive needs: No Hearing needs: No Vision needs: No Review of Systems Const Denies chills, Denies fatigue, Denies fever(s), Denies frequent falls, Denies weakness, Denies weight gain and Denies weight loss ENT Denies dizziness Card Denies chest pain, Denies chest pain with activity, Denies syncope, Denies rapid heart rate, Denies pedal edema, Denies irregular heart rhythm, Denies leg edema, Denies lightheadedness, Denies palpitations, Denies dyspnea, Denies dyspnea on exertion, Denies orthopnea and Denies other (LOC) Resp Denies cough, Denies dyspnea and Denies dyspnea on exertion GI Denies hematochezia and Denies change in bowel habits Musc Denies abnormal gait, Denies arthralgias, Denies muscle weakness, Denies numbness, Denies radiating pain into limb and Denies tingling Neuro Denies abnormal gait, Denies dizziness, Denies syncope, Denies frequent falls, Denies numbness, Denies tingling and Denies weakness Endo Denies fatigue and Denies palpitations Physical Exam Vital Signs: Last Vital Signs Pulse 71 05/08/23 14:01 BP 100/60 05/08/23 14:01 Pulse Ox 96 05/08/23 13:46 Oxygen Delivery Method Room Air 05/08/23 13:46 BMI result Body Mass Index 34.4 Const General: healthy appearing and no acute distress Orientation/consciousness: patient oriented x3 HEENT Head: Yes normal to inspection Eyes General: appearance normal, both eyes and all related structures Neck Neck: Yes normal visual inspection Chest Chest palpation & inspection: normal inspection of the chest Resp Effort & Inspection: normal respiratory effort Auscultation: clear to auscultation bilaterally Cardio Jugular venous distension: no JVD Palpation: normal PMI Rate: regular rate Rhythm: regular rhythm Heart sounds: S1 normal heart sound present, S2 normal heart sound present, no click, no gallops, no murmurs and no rubs GI Inspection: Yes normal to inspection Palpation (GI): Soft to palpation Skin General skin exam: no rashes or lesions noted Neuro General: patient oriented x3 Extrem General: Yes normal to inspection Psych Appearance: grossly normal Assessment & Plan Assessment & Plan (1) Palpitation: Code(s): R00.2 - Palpitations (2) Orthostatic hypotension: Code(s): I95.1 - Orthostatic hypotension Plan Will do a three day holter to evaluate for arrhythmias. Discontinue hydrochlorothiazide and monitor blood pressures periodically. Hydrate well. Report any new or worsneing symptoms. She is leaving for the [facility] [employer] on the - she will call when she returns for her follow-up. Stressed the importance of a follow-up. Will call with results of holter. Orders: Orders ECG 3 day holter monitor 05/08/23 R00.2 - Palpitations Medications: Discontinued hydrochlorothiazide Discontinued Reason: Doctor's Order 25 mg PO DAILY 90 days 90 tabs 3RF Quality Reporting (2019) Adult ([facility] 138/2/22/69) Smoking risk assessment performed?: Yes Patient Tobacco Use Status: Never used Tobacco Coding Level of Care Code Est Pt Level 3 (04164) Diagnoses Palpitation R00.2 Orthostatic hypotension I95.1
[2023-05-08 13:46] VITALS: BP 112/62; PULSE 68; O2SAT 96; BMI 34.4
[2023-05-08 14:01] VITALS: BP 100/60; BP 114/62; PULSE 70; PULSE 71
== END 2023-05-08 14:23 | disposition home or self-care (01) ==
PROVIDERS: PCP Internal Medicine; Visit Provider Nurse Practitioner
DX: R00.2 Palpitations (principal); I95.1 Orthostatic hypotension
CPT/HCPCS: 99213

== ENCOUNTER → 2023-05-08 13:27 | Outpatient (BNVA) | payer OTHER, SELFPAY | PROVIDERS: PCP Internal Medicine; Visit Provider Nurse Practitioner | DX: R00.2 Palpitations (principal); I95.1 Orthostatic hypotension | CPT/HCPCS: 99212 ==

== ENCOUNTER 2023-05-10 10:53 | Outpatient (REF) | payer OTHER, SELFPAY ==
--- NOTE | 2023-05-10 11:48 | PFT_ITS ---
Forced vital capacity 92%. FEV1 80%. FEV1/FVC ratio is 68. DTG42-16 51%, and MVV is 67%. Post bronchodilator therapy, there is no significant change. Lung volumes, total lung capacity 101% and residual volume 126%. Diffusion capacity 119%. CONCLUSION: There is evidence of mild obstructive airway disorder. No response to bronchodilator therapy. No restrictive lung disorder noted. MD JOYCE Soto/MODL / [id number]
== END 2023-05-10 10:54 | disposition home or self-care (01) ==
LOC: HO.RESP 10:53
PROVIDERS: PCP Internal Medicine; Visit Provider Internal Medicine Pulmonary Disease
DX: J45.909 Unspecified asthma, uncomplicated (principal)
CPT/HCPCS: 94010; 94727; 94729

== ENCOUNTER → 2023-05-10 11:48 | Outpatient (BNV) | payer OTHER, SELFPAY | PROVIDERS: PCP Internal Medicine; Visit Provider Internal Medicine | DX: J45.909 Unspecified asthma, uncomplicated (principal) | CPT/HCPCS: 94060; 94727; 94729 ==

== ENCOUNTER 2023-05-17 | Outpatient (REF) | payer OTHER, SELFPAY | END 2023-05-17 00:01 | disposition home or self-care (01) | LOC: CF | PROVIDERS: PCP Internal Medicine; Visit Provider Internal Medicine Pulmonary Disease | DX: J84.9 Interstitial pulmonary disease, unspecified (principal); J45.909 Unspecified asthma, uncomplicated | CPT/HCPCS: 99212 ==

== ENCOUNTER 2023-05-17 09:10 | Outpatient (REF) | payer OTHER, SELFPAY ==
--- NOTE | ~2023-05-17 | MM_ITS ---
EXAMINATION: MM SCREENING DIGITAL BREAST TOMOSYNTHESIS, BILATERAL CLINICAL INFORMATION: Screening. Asymptomatic. The patient has a history of treated right breast cancer and bilateral breast reduction. COMPARISON: Mammography: This study is compared with prior exams dating back to 2017. TECHNIQUE: Digital breast tomosynthesis is performed in both the craniocaudal and mediolateral oblique views along with computer-aided detection (CAD). Synthesized 2D images are generated from the tomosynthesis. FINDINGS: There are scattered areas of fibroglandular density (ACR BI-RADS breast composition Category b). There are no significant masses, abnormal calcifications, or other abnormalities. Post reduction changes are present. There is tissue marker in the left breast from prior benign percutaneous biopsy. MM/MM tomosynthesis screening BI IMPRESSION: No mammographic evidence of malignancy. ASSESSMENT: BI-RADS BI-RADS 2 - Benign Findings RECOMMENDATION: Routine annual mammography screening. 1 year F/U This examination should not preclude the clinical evaluation of a suspicious palpable abnormality. This patient's information was entered into a reminder system with a target due date for their next mammogram.
== END 2023-05-17 09:11 | disposition home or self-care (01) ==
LOC: HO.MAMMO 09:10
PROVIDERS: PCP Internal Medicine; Visit Provider Internal Medicine
DX: Z12.31 Encounter for screening mammogram for malignant neoplasm of breast (principal)
CPT/HCPCS: 77063; 77067

== ENCOUNTER → 2023-05-17 09:30 | Outpatient (BNV) | payer OTHER, SELFPAY | PROVIDERS: PCP Internal Medicine; Visit Provider Radiology Diagnostic Radiology | DX: Z12.31 Encounter for screening mammogram for malignant neoplasm of breast (principal) | CPT/HCPCS: 77063; 77067 ==

== ENCOUNTER 2023-05-17 12:56 | Outpatient (AMB) | payer OTHER, SELFPAY ==
--- NOTE | 2023-05-17 13:00 | A.OFFVIS_ITS ---
Intake Vital Signs 05/17/23 13:01 Height 5 ft 4 in Weight 199 lb 8.293 oz BMI 34.2 BP 100/69 Blood Pressure Location Lt brachial Position Sitting Pulse 77 Pulse Source Doppler Pulse Oximetry (%) 97 Oxygen Delivery Method Room Air Intake Visit Reasons: COPD Allergies hydralazine Allergy (Intermediate, Verified 05/17/23 13:03) hypotension Iodinated Contrast Media [IV CONTRAST] Allergy (Intermediate, Verified 05/17/23 13:03) BLISTERED RASH metformin Allergy (Intermediate, Verified 05/17/23 13:03) constipation HPI COPD HPI Details 67-year-old lady, lifetime nonsmoker, pr eviously treated by [facility] pulmonary for ?COPD, also with underlying history of exposure to industrial dusts presents complaining of wheezing and cough in when in the [place], but not when in [place] she does have a dog. She denies family history of lung disease. Patient is using Advair 500 and albuterol MDI with suboptimal control of her symptoms. She denies recent exacerbations. After the last office visit patient has completed her pulmonary function test that shows mild obstructive physiology, but normal diffusion capacity. Her immunologic workup is essentially negative. CT chest is pending. At this time patient states that her symptoms reasonably controlled her current regimen of Advair 500 and albuterol MDI. 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 Polymyalgia rheumatica Syncope B12 deficiency Postmenopausal Diabetes mellitus Dyslipidemia COPD (chronic obstructive pulmonary disease) Essential hypertension Surgical History History of colonoscopy History of total abdominal hysterectomy History of bilateral breast reduction surgery History of abdominoplasty Family History Father Hypertension Mother Hypertension Cancer Maternal Grandmother Stroke Social History Housing: Apartment Alcohol intake: never Patient Tobacco Use Status: Never used Tobacco service: No Current occupational status: retired Cognitive needs: No Hearing needs: No Vision needs: No Review of Systems Const Denies daytime sleepiness, Denies excessive sweating, Denies fatigue, Denies fever(s), Denies lethargy, Denies malaise, Denies night sweats, Denies snoring and Denies weight loss Eyes Denies blurry vision and Denies itchy eyes ENT Denies nasal congestion, Denies post nasal drip, Denies sinus pain, Denies sinus pressure and Denies other ( Thrush) Card Denies chest pain, Denies pedal edema, Denies dyspnea, Denies orthopnea and Denies paroxysmal nocturnal dyspnea Resp Denies cough, Denies hemoptysis, Denies excessive phlegm production, Denies dyspnea, Denies snoring and Denies wheezing GI Denies abdominal pain and Denies heartburn Musc Denies myalgias, Denies arthralgias and Denies joint swelling Skin/Breast Denies rash Neuro Denies memory loss and Denies seizure-like activity Psych Denies abnormal sleep pattern, Denies anxiety and Denies memory loss Endo Denies excessive sweating, Denies fatigue and Denies heat intolerance Keith/Lymph Denies easy bruising Aller/Immun Denies itchy eyes, Denies seasonal rhinorrhea and Denies wheezing Physical Exam Vital Signs: Last Vital Signs Pulse 77 05/17/23 13:01 BP 100/69 05/17/23 13:01 Pulse Ox 97 05/17/23 13:01 Oxygen Delivery Method Room Air 05/17/23 13:01 BMI result Body Mass Index 34.2 Const General: no acute distress and alert Nutritional Appearance: not obese Orientation/consciousness: Other orientation findings ( oriented) HEENT Head: Yes atraumatic Eyes General: appearance normal, both eyes and all related structures Sclerae: sclerae normal EOM: EOMs intact bilaterally Neck Neck: Yes supple Lymphatic: no lymphadenopathy noted Resp Effort & Inspection: normal respiratory effort and no use of accessory muscles Auscultation: clear to auscultation bilaterally Cardio Rate: regular rate Rhythm: regular rhythm Heart sounds: no gallops, no murmurs and no rubs Skin General skin exam: other ( warm) Extrem General: No clubbing, No cyanosis and No edema Assessment & Plan Assessment & Plan (1) ILD (interstitial lung disease): Code(s): J84.9 - Interstitial pulmonary disease, unspecified Plan: CT chest is pending. (2) Asthma: Code(s): J45.909 - Unspecified asthma, uncomplicated Plan: Now well controlled on current regimen of Advair and albuterol MDI. Continue current regimen. Orders: Orders CT chest wo IV con Today J84.9 - Interstitial pulmonary disease, unspecified Quality Reporting (2019) Adult ([facility] 13809/12/68) Smoking risk assessment performed?: Yes Patient Tobacco Use Status: Never used Tobacco Coding Level of Care Code Est Pt Level 4 (10883) Diagnoses ILD (interstitial lung disease) J84.9 Asthma J45.909
[2023-05-17 13:01] VITALS: BP 100/69; PULSE 77; O2SAT 97; BMI 34.2
== END 2023-05-17 13:19 | disposition home or self-care (01) ==
PROVIDERS: PCP Internal Medicine; Visit Provider Internal Medicine Pulmonary Disease
DX: J84.9 Interstitial pulmonary disease, unspecified (principal); J45.909 Unspecified asthma, uncomplicated
CPT/HCPCS: 99214

== ENCOUNTER 2023-05-21 10:15 | Day surgery (SDC) | payer OTHER, SELFPAY ==
--- NOTE | 2023-05-20 08:24 | P.CONAN_ITS ---
Documented by User: Tiffanie Milton NP 05/20/23 12:16 HPI - Anesthesia Eval Consult details Narrative: 67yo F for Colonoscopy Follows [facility]. Last seen 05/08/23. Pt reported palps and dizziness. HCTZ d/c'd and holter pending. Per 05/20/23 telephone call with patient: since stopping HCTZ, palps and dizziness have resolved. Also, was over-doing on the treadmill for >45 min workouts when symptoms would occur. Has since decreased intensity of workouts. Follows [facility] [place] pulmo. Stable at 04/2023 visit Anesthesia Pre-Procedure Meds Is the patient on any of the following meds?: Semaglutide (Ozempic) PMFSH Active Problems Active Problems: All Active Problems (Updated 05/08/23 @ 15:34 by Stephany White NP) Orthostatic hypotension (Acute) Palpitation (Acute) Exposure to carbon monoxide (Acute) Environmental allergies (Acute) ILD (interstitial lung disease) (Acute) Asthma (Acute) SOB (shortness of breath) (Acute) Hypercalcemia (Acute) Obesity (BMI 30-39.9) (Acute) Decreased hearing of both ears (Acute) Forgetfulness (Acute) Family history of colorectal cancer (Acute) Osteopenia (Acute) Adult general medical exam (Acute) Screening for colon cancer (Acute) Screening for breast cancer (Acute) 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 (Acute) 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) Polymyalgia rheumatica (Acute) Syncope (Acute) B12 deficiency (Acute) Postmenopausal (Acute) Diabetes mellitus (Acute) Dyslipidemia (Acute) COPD (chronic obstructive pulmonary disease) (Acute) Essential hypertension (Acute) Past Medical History Medical History Family history of colorectal cancer 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 rheumatica Syncope B12 deficiency Postmenopausal Diabetes mellitus Dyslipidemia COPD (chronic obstructive pulmonary disease) Essential hypertension Family History Family History Father Hypertension Mother Hypertension Cancer Maternal Grandmother Stroke Surgical History Surgical History History of colonoscopy History of total abdominal hysterectomy History of bilateral breast reduction surgery History of abdominoplasty Social History Social History Housing: Apartment Alcohol intake: never Patient Tobacco Use Status: Never used Tobacco Use of substances other than those prescribed or required for medical reasons: No Advance Directives: No Advance Directives Information Provided: Yes service: No Current occupational status: retired Cognitive needs: No Hearing needs: No Vision needs: No Meds Allergies Allergy/AdvReac Type Severity Reaction Status Date / Time hydralazine Allergy Intermediate hypotension Verified 05/21/23 11:03 Iodinated Contrast Media Allergy Intermediate BLISTERED Verified 05/21/23 11:03 [IV CONTRAST] RASH metformin Allergy Intermediate constipatio Verified 05/21/23 11:03 n Exam Exam Date and Time: May 20, 2023 0824 Pertinent Lab Results Pertinent Lab Results: Laboratory Tests 01/18/23 04/22/23 10:46 15:02 WBC 6.8 Hgb 11.8 L Hct 36.8 L Plt Count 303 Sodium 142 Potassium 4.4 Chloride 109 H Carbon Dioxide 26 BUN 22 H Creatinine 0.79 Narrative Narrative: EKG 03/2023 sinus rhythm at 61/Min; no significant ST-T changes and otherwise unremarkable. Normal VA and corrected QT. ECHO 2020 Conclusions: - The left ventricular systolic function is mildly decreased. The calculated ejection fraction is 43% by biplane method. - The basal inferior and mid inferior segments are hypokinetic. - No obvious valvular pathology seen on this study. 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 Polymyalgia rheumatica Syncope B12 deficiency Postmenopausal Diabetes mellitus Dyslipidemia COPD (chronic obstructive pulmonary disease) Essential hypertension Family History Family History Father Hypertension Mother Hypertension Cancer Maternal Grandmother Stroke Family history of problems with anesthesia: No Surgical History Surgical History History of colonoscopy History of total abdominal hysterectomy History of bilateral breast reduction surgery History of abdominoplasty History of Problems with Anesthesia: No Social History Social History Housing: Apartment Alcohol intake: never Patient Tobacco Use Status: Never used Tobacco Use of substances other than those prescribed or required for medical reasons: No Advance Directives: No Advance Directives Information Provided: Yes service: No Current occupational status: retired Cognitive needs: No Hearing needs: No Vision needs: No Meds Allergies Allergy/AdvReac Type Severity Reaction Status Date / Time hydralazine Allergy Intermediate hypotension Verified 05/21/23 11:03 Iodinated Contrast Media Allergy Intermediate BLISTERED Verified 05/21/23 11:03 [IV CONTRAST] RASH metformin Allergy Intermediate constipatio Verified 05/21/23 11:03 n Exam Airway Mallampati Class: III TM Dist: >3cm Neck ROM: Full Assessment and Plan Assessment Anesthesia Assessment: Anesthesia Plan Discussed Final Anesthetic Review Family History of Problems with Anesthesia: No History of Problems with Anesthesia: No NPO: Yes ASA Class: III Final Preanesthetic Review: No Changes in Pt Med Stat, Meds/Allgs Chart Reviewed, Consent Obtained/Reviewed and Anes Risks/Benef Reviewed Patient Risk: Intermediate Procedure Risk: Low Anesthetic Plan Anesthetic Plan: MAC: Disposition: Standard PACU
[2023-05-21 10:35] VITALS: BMI 34.7
[2023-05-21 11:03] VITALS: BP 144/78; PULSE 62; RESP 16; TEMP 36.2; O2SAT 98
[2023-05-21] MEDS: Lactated Ringers 1,000 ML 100 ML IVCONT (11:08)
[2023-05-21 11:10] LABS: Glucose, Whole Blood 73 mg/dL (60-115)
--- NOTE | 2023-05-21 11:51 | MHC.SHP ---
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 Polymyalgia rheumatica Postmenopausal Syncope Surgical History History of abdominoplasty History of bilateral breast reduction surgery History of colonoscopy History of total abdominal hysterectomy Relevant Family History (Specify if Yes): Yes Relevant Social History: None Present Medications: see Short Stay Collaborative assessment Allergies: Allergies Allergy/AdvReac Type Severity Reaction Status Date / Time hydralazine Allergy Intermediate hypotension Verified 05/21/23 11:03 Iodinated Contrast Media Allergy Intermediate BLISTERED Verified 05/21/23 11:03 [IV CONTRAST] RASH metformin Allergy Intermediate constipatio Verified 05/21/23 11:03 n Review of Systems Review of Systems Comment: 10 point ROS negative except as above Exam Exam Comment: Gen appear: No acute distress HEENT: no icterus Chest: No overt resp distress Abd: soft, nontender, nondistended Psych: Stable affect, answering questions appropriately Neuro: A/Ox3 noted to move all extremities spontaneously Ext: no peripheral edema Plan Diagnosis/Plan: Unchanged I have reviewed the history and physical and performed a pertinent physical examination on my patient. No changes have occurred unless specified. Time Spent With Patient Time: Total time managing care of this patient today ____ minutes.
--- NOTE | 2023-05-21 11:52 | P.OP_ITS ---
Operative Note Operative Note Date of Service: 05/21/23 Narrative: Procedure: Colonoscopy Indication: Family hx of CRC Endoscopist: Loida Gregory MD Anesthesia Provider: Dr Neeraj Adler Anesthesia type: MAC Instrument: Olympus [id number]-[id number] Consent: Indication, risks vs benefits, and alternatives were discussed with the patient who gave written informed consent to proceed. EKG, pulse, pulse oximetry and blood pressure were monitored throughout the procedure. Please see anesthesia flowsheet. Procedure: The patient was brought to the procedure room and placed in the left lateral decubitus position. IV medications were administered by the anesthesia provider in attendance. A digital rectal exam was performed which was abnormal due to finding of hemorrhoids. The colonoscope was then inserted through the anus and advanced through the colon to the cecum at 75 cm,and terminal ileum. Mucosa was carefully examined under high definition white light as the instrument was slowly withdrawn in a retrograde panoramic fashion. Retroflexion was performed in rectum. The procedure was not difficult. There were no immediate obvious complications. The quality of the prep was BBPS: 2+3+2 = adequate Withdrawal time 12 minutes. Limitations: No limitations. Findings: Mucosa: Normal to cecum and terminal ileum. Protruding lesions: * 1 sessile polyp of size 2 mm in transverse colon. Cold forceps polypectomy was performed. The polyp was completely removed and retrieved. * Medium internal hemorrhoids without stigmata of recent bleeding. Impression: 1. Normal colon and terminal ileum mucosa 2. Total of 1 polyp removed 3. External and internal hemorrhoids Recommendations: - Follow path results. - Repeat colonoscopy in 5 years due to fam hx of CRC
[2023-05-21 12:51] VITALS: BP 130/77; PULSE 68; RESP 16; TEMP 36.6; O2SAT 98
[2023-05-21 13:06] VITALS: BP 154/83; PULSE 61; RESP 18; TEMP 36.8; O2SAT 97
== END 2023-05-21 14:06 | disposition home or self-care (01) ==
PROVIDERS: PCP Internal Medicine; Visit Provider Internal Medicine
PROC: 0DJD8ZZ Inspection of Lower Intestinal Tract, Via Natural or Artificial Opening Endoscopic (ICD-10-PCS; CPT 45378; principal; 2023-05-21 12:00)
DX: Z12.11 Encounter for screening for malignant neoplasm of colon (principal); Z80.0 Family history of malignant neoplasm of digestive organs; K63.5 Polyp of colon; K64.8 Other hemorrhoids; K64.4 Residual hemorrhoidal skin tags; K59.00 Constipation, unspecified; I10 Essential (primary) hypertension; M35.3 Polymyalgia rheumatica; J44.9 Chronic obstructive pulmonary disease, unspecified; E53.8 Deficiency of other specified B group vitamins; E78.5 Hyperlipidemia, unspecified; E11.9 Type 2 diabetes mellitus without complications; Z79.85 Long-term (current) use of injectable non-insulin antidiabetic drugs; Z79.52 Long term (current) use of systemic steroids; Z88.8 Allergy status to other drugs, medicaments and biological substances; Z91.041 Radiographic dye allergy status; Z98.890 Other specified postprocedural states
CPT/HCPCS: 45380; 82947; 88305

== ENCOUNTER → 2023-05-21 10:15 | Outpatient (BNV) | payer OTHER, SELFPAY | PROVIDERS: PCP Internal Medicine; Visit Provider Internal Medicine | DX: Z12.11 Encounter for screening for malignant neoplasm of colon (principal); Z80.0 Family history of malignant neoplasm of digestive organs; D12.3 Benign neoplasm of transverse colon; K64.8 Other hemorrhoids | CPT/HCPCS: 45380 ==

== ENCOUNTER 2023-05-23 09:18 | Outpatient (AMB) | payer OTHER, SELFPAY ==
[2023-05-23 09:31] VITALS: BP 179/85; PULSE 66; O2SAT 96; BMI 34.7
--- NOTE | 2023-05-23 09:31 | A.OFFVIS_ITS ---
Intake Vital Signs 05/23/23 09:31 Height 5 ft 4 in Weight 201 lb 15.095 oz BMI 34.7 BP 179/85 H Blood Pressure Location Lt brachial Position Sitting Pulse 66 Pulse Source Pulse Oximeter Pulse Oximetry (%) 96 Oxygen Delivery Method Room Air Intake Visit Reasons: follow up Intake Note: Pt presents to the office today for a follow up for constipation. Pt states she is overall feeling well. Pt states she has made significant improvement with the Linzess. Pt denies any GI concerns at this time. Allergies hydralazine Allergy (Intermediate, Verified 05/30/23 08:52) hypotension Iodinated Contrast Media [IV CONTRAST] Allergy (Intermediate, Verified 05/30/23 08:52) BLISTERED RASH metformin Allergy (Intermediate, Verified 05/30/23 08:52) constipation HPI follow up HPI Details LAST VISIT 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 Patient will be given script for Linzess as requested. Patient was also encouraged to increase fluid intake and activity to promote better bowel motility. Screening for colon cancer Patient is leaving to [facility] next week January 23. Will make appointment for colonoscopy in September when she returns. Patient denies any melena, hematochezia, unintentional weight loss or ribbon like stools. Patient reports that she has palpitations and chest pressure was seen in the hospital in [facility] will send referral for Cardiology to clear her before the procedure Family history of colorectal cancer As mentioned above in HPI patient has a family history of colorectal cancer p ange's father and her brother were diagnosed with colorectal cancer. Patient denies any melena, hematochezia, unintentional weight loss or ribbon like stools. Will book colonoscopy in September, patient is leaving for [facility] January 23. Patient was encouraged to get it done in [facility] if she is on able to wait till she returns. Patient is agreeable to this plan and verbalizes understanding of instructions. She was given the opportunity to ask questions and all questions answered. ? COLONOSCOPY Findings: Mucosa: Normal to cecum and terminal ileum. Protruding lesions: * 1 sessile polyp of size 2 mm in transverse colon. Cold forceps polypectomy was performed. The polyp was completely removed and retrieved. * Medium internal hemorrhoids without stigmata of recent bleeding. Impression: 1. Normal colon and terminal ileum mucos a 2. Total of 1 polyp removed 3. External and internal hemorrhoids Recommendations: - Follow path results. - Repeat colonoscopy in 5 years due to argenis espitia hx of CRC PATHOLOGY RESULTS Diagnosis Colon, transverse, polypectomy: Colonic mucosa with mild surface hyperplastic changes; multiple additional levels examined TODAY'S VISIT Patient is here today for follow-up and to discuss colonoscopy results. Patient denies any ill effects from the prep, anesthesia or procedure itself. Patient reports that she has been feeling well since she started taking Linzess. Patient reports that she will be leaving for the minute in [place] within the next couple weeks. Would like to get a script for Linzess for 90 day supply. Patient denies any nausea or vomiting. Denies dyspepsia, dysphagia or odynophagia. Denies melena, hematochezia, unintentional weight loss or ribbon like stools. 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 Polymyalgia rheumatica Syncope B12 deficiency Postmenopausal Diabetes mellitus Dyslipidemia COPD (chronic obstructive pulmonary disease) Essential hypertension Surgical History History of colonoscopy History of total abdominal hysterectomy History of bilateral breast reduction surgery History of abdominoplasty Family History Father Hypertension Mother Hypertension Cancer Maternal Grandmother Stroke Social History Housing: Apartment Alcohol intake: never Patient Tobacco Use Status: Never used Tobacco e-Cigarette/Vaping Use: Never Used Second Hand Smoke Exposure: No service: No Current occupational status: retired Cognitive needs: No Hearing needs: No Vision needs: No Review of Systems Const Denies weight gain and Denies weight loss ENT Reports no additional complaints, Denies dysphagia and Denies odynophagia Card Reports no additional complaints Resp Reports no additional complaints GI Denies abdominal pain, Denies belching, Denies melena, Denies bloating, Denies change in bowel habits, Reports constipation, Denies dysphagia, Denies excessive flatus, Denies dyspepsia, Denies heartburn, Denies diarrhea, Denies loose stools, Denies nausea, Denies odynophagia and Denies vomiting Reports no additional complaints Musc Reports no additional complaints Neuro Reports no additional complaints Psych Reports no additional complaints Endo Reports no additional complaints Physical Exam Vital Signs: Last Vital Signs Pulse 66 05/23/23 09:31 BP 179/85 H 05/23/23 09:31 Pulse Ox 96 05/23/23 09:31 Oxygen Delivery Method Room Air 05/23/23 09:31 BMI result Body Mass Index 34.7 Const General: healthy appearing, no acute distress and well developed Nutritional Appearance: obese Orientation/consciousness: patient oriented x3 HEENT Head: Yes normal to inspection, Yes normocephalic and Yes atraumatic Face and sinus: Yes normal facial exam Mouth: Normal oral and palatal mucosa present Throat: Yes posterior oropharynx normal, Yes tonsils normal and Yes uvula midline Eyes General: appearance normal, both eyes and all related structures Neck Neck: Yes normal visual inspection, Yes full ROM and Yes trachea midline Thyroid: Thyroid normal Resp Effort & Inspection: normal respiratory effort, able to speak in complete sentences, no tracheal deviation and symmetric chest movement Auscultation: clear to auscultation bilaterally Cardio Rate: regular rate Heart sounds: S1 normal heart sound present and S2 normal heart sound present GI Inspection: Yes normal to inspection, No distended and Yes obesity Palpation (GI): Soft to palpation, not firm, nontender and No hepatosplenomegaly present Auscultation: normal bowel sounds General: Yes no CVA tenderness Back/Spine/Pelvis Back: no CVA tenderness Skin General skin exam: elasticity normal, turgor normal and dry skin Neuro General: patient oriented x3 Psych Appearance: grossly normal Mental Status: mental status grossly normal Results AMB Hemoglobin A1c AMB Hemoglobin A1c 5.7 % Last Edit by COREY Mcneill on 05/23/23 11:0 6 Assessment & Plan Assessment & Plan (1) 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: Code(s): K59.09 - Other constipation (2) Family history of colorectal cancer: Code(s): Z80.0 - Family history of malignant neoplasm of digestive organs (3) Status post colonoscopy: Code(s): Z98.890 - Other specified postprocedural states Plan: Colonoscopy results discussed with patient. One small benign polyp found, however due to family history of colorectal cancer patient will return for colorectal screening in 5 years. Continue taking Linzess on daily basis. Patient was encouraged to increase fluid intake and activity to promote better bowel motility. Patient will follow-up with us on as needed basis. She is agreeable to this plan and verbalizes understanding of instructions. She was given the opportunity to ask questions and all questions answered. Thank you for allowing me to participate in her care Medications: Refilled linaclotide (Linzess) 290 mcg PO QAM 90 caps 2RF K59.00 - Constipation, unspecified Quality Reporting (2019) Adult ([facility] 138/09/12/68) Smoking risk assessment performed?: Yes Patient Tobacco Use Status: Never used Tobacco Coding Level of Care Code Est Pt Level 3 (99992) Diagnoses 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 K59.09 Family history of colorectal cancer Z80.0 Status post colonoscopy Z98.890 Time Spent (min) 30 Comment 20 minutes spent with patient and additional 10 minutes spent reviewing her records
== END 2023-05-23 10:08 | disposition home or self-care (01) ==
PROVIDERS: PCP Internal Medicine; Visit Provider Nurse Practitioner Family
DX: K59.09 Other constipation (principal); Z80.0 Family history of malignant neoplasm of digestive organs; Z98.890 Other specified postprocedural states
CPT/HCPCS: 99213

== ENCOUNTER → 2023-05-23 09:18 | Outpatient (BNVA) | payer OTHER, SELFPAY | PROVIDERS: PCP Internal Medicine; Visit Provider Nurse Practitioner Family | DX: K59.09 Other constipation (principal); Z80.0 Family history of malignant neoplasm of digestive organs; Z98.890 Other specified postprocedural states | CPT/HCPCS: 99212 ==

== ENCOUNTER 2023-05-23 10:14 | Outpatient (AMB) | payer OTHER, SELFPAY ==
--- NOTE | 2023-05-23 10:52 | MHC.PC.OV ---
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 Required: No Accompanied by: Self / Same As Patient Allergies hydralazine Allergy (Intermediate, Verified 05/23/23 11:14) hypotension Iodinated Contrast Media [IV CONTRAST] Allergy (Intermediate, Verified 05/23/23 11:14) BLISTERED RASH metformin Allergy (Intermediate, Verified 05/23/23 11:14) constipation Medication List - Last Reconciled 05/23/23 by Tegan Henriquez MD albuterol sulfate 90 mcg/actuation 2 puffs inhalation Q4-6H PRN 30 days atorvastatin 80 mg PO DAILY 90 days bisoprolol fumarate 5 mg PO DAILY blood sugar diagnostic (FreeStyle Lite Strips) test daily blood-glucose meter (FreeStyle Lite Meter kit) test daily candesartan 32 mg PO DAILY fluticasone propion-salmeterol 500-50 mcg/dose 1 ea PO BID 30 days fluticasone propionate 50 mcg/actuation 1 spray intranasal DAILY gabapentin 300 mg PO BID 90 days lancets (FreeStyle Lancets) test daily linaclotide (Linzess) 290 mcg PO QAM pioglitazone 30 mg PO DAILY semaglutide 1 mg (0.75 mL) subcut QWEEK Tobacco use date assessed: 01/17/23 Fall risk assessment: No Falls in past year Last assessed Fall Risk: 05/23/23 Dental Screening Dental Screen Date: 05/23/23 Did you have a dental visit in the last 12 months?: Yes Did you have a dental problem in the last 6 months where you did not have access to dental care?: No Was dental information given to patient?: Patient has dentist HPI HPI Comments History of Present Illness Details This is a 67-year-old female with diabetes mellitus type 2, hypertension, COPD and dyslipidemia that comes today for follow-up on her conditions. A1c within goal. Blood pressure elevated and I will increase bisoprolol. Blood pressure goal is equal or less than 130/80. LDL not on goal and this will be repeated currently. COPD state right longstanding inhaler. Use rescue inhaler few times in with. No chest pain or shortness of breath. 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 Polymyalgia rheumatica Syncope B12 deficiency Postmenopausal Diabetes mellitus Dyslipidemia COPD (chronic obstructive pulmonary disease) Essential hypertension Surgical History History of colonoscopy History of total abdominal hysterectomy History of bilateral breast reduction surgery History of abdominoplasty Family History Father Hypertension Mother Hypertension Cancer Maternal Grandmother Stroke Social History Housing: Apartment Alcohol intake: never Patient Tobacco Use Status: Never used Tobacco e-Cigarette/Vaping Use: Never Used Second Hand Smoke Exposure: No service: No Current occupational status: retired Cognitive needs: No Hearing needs: No Vision needs: No Questionnaire EVI-7 AMB Questionnaire EVI-7 Date EVI - 7 assessed: 01/17/23 Source: Developed by Drs. Ramos Almanzar, Zo Sanchez, Parjmit Aviles and colleagues, with an educational princess from [employer]. Review of Systems Const All systems reviewed & are unremarkable except as noted in HPI and below Eyes Reports no additional complaints, Denies change in vision and Denies other visual disturbances Card Denies chest pain at rest, Denies chest pain with activity, Denies edema, Denies irregular heart rhythm, Denies claudication, Denies dyspnea, Denies dyspnea on exertion, Denies orthopnea, Denies paroxysmal nocturnal dyspnea and Denies slow heart rate Resp Denies cough, Denies dyspnea and Denies dyspnea on exertion GI Denies abdominal pain, Denies change in bowel habits, Denies excessive flatus, Denies nausea and Denies vomiting Denies urinary incontinence, Denies urinary hesitancy and Denies urinary urgency Musc Denies abnormal gait, Denies atrophy, Denies deformity and Denies limited range of motion Skin/Breast Denies bleeding lesions, Denies changing lesions and Denies rash Neuro Denies abnormal gait, Denies behavioral changes and Denies lack of coordination Psych Denies behavioral changes Physical exam (Primary Care) Vital Signs: Last Vital Signs Pulse 61 05/23/23 10:55 BP 168/98 H 05/23/23 10:55 Pulse Ox 99 05/23/23 10:55 Oxygen Delivery Method Room Air 05/23/23 10:55 BMI result Body Mass Index 34.7 Tobacco/Smoking Status: Tobacco use Status Tobacco use date assessed 01/17/23 05/23/23 10:53 Patient Tobacco Use Status Never used Tobacco 05/23/23 10:53 e-Cigarette/Vaping Use Never Used 05/23/23 11:00 Eyes General: appearance normal, both eyes and all related structures Eyelids: Yes eyelids normal Conjunctivae: conjunctivae normal Neck Neck: Yes normal visual inspection and Yes supple Resp Effort & Inspection: normal respiratory effort Auscultation: clear to auscultation bilaterally Cardio Jugular venous distension: no JVD Rate: regular rate Rhythm: regular rhythm Heart sounds: S1 normal heart sound present and S2 normal heart sound present Extrem General: Yes full ROM Office Procedures Flu Questionnaire Does the patient have a severe egg allergy?: No Results AMB Hemoglobin A1c AMB Hemoglobin A1c 5.7 % Last Edit by COREY Mcneill on 05/23/23 11:06 Immunizations flu vacc [id number] 6mos up(PF) 60 mcg(15 mcgx4)/0.5 mL IM syringe Performing Provider: Tegan Henriquez MD [facility] Documented (not given) by: COREY Mcneill on 05/23/23 11:01 Reason Not Given: Patient Refused Results Reviewed Results Reviewed: Laboratory Last Values Hgb A1c (Clinic) 5.7 % (4.0-6.0) 05/23/23 11:00 Assessment and Plan Assessment & Plan (1) COPD (chronic obstructive pulmonary disease): Code(s): J44.9 - Chronic obstructive pulmonary disease, unspecified Plan: Continue longstanding inhaler. Rafael rescue inhaler as needed. 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 A1c goal is equal or less than 7%. (3) Dyslipidemia: Code(s): E78.5 - Hyperlipidemia, unspecified Plan: Continue statins. Repeat lipid panel. LDL goal is less than 70. (4) Essential hypertension: Code(s): I10 - Essential (primary) hypertension Plan: Increase bisoprolol from 5 mg to 10 mg. Blood pressure goal is equal or less than 130/80. Orders: Orders Influenza [id number] Immunization 05/23/23 Z23 - Encounter for immunization AMB Hemoglobin A1c 05/23/23 E11.9 - Type 2 diabetes mellitus without complications Microalbumin, Random (w Creat) 05/23/23 E11.9 - Type 2 diabetes mellitus without complications Lipid Panel 05/23/23 E78.5 - Hyperlipidemia, unspecified Comprehensive [place]. Panel Fast 05/23/23 I10 - Essential (primary) hypertension Medications: New bisoprolol fumarate 10 mg PO DAILY 90 days 90 tabs 1RF I10 - Essential (primary) hypertension Changed From semaglutide 1 mg (0.75 mL) subcut QWEEK 3 mL 0RF E11.9 - Type 2 diabetes mellitus without complications To semaglutide 1 mg (0.75 mL) subcut QWEEK 90 days 9.75 mL 1RF E11.9 - Type 2 diabetes mellitus without complications Refilled atorvastatin 80 mg PO DAILY 90 days 90 tabs 3RF E78.5 - Hyperlipidemia, unspecified candesartan 32 mg PO DAILY 90 tabs 0RF I10 - Essential (primary) hypertension pioglitazone 30 mg PO DAILY 90 tabs 1RF E11.9 - Type 2 diabetes mellitus without complications Discontinued bisoprolol fumarate Discontinued Reason: Patient Completed Course 5 mg PO DAILY 90 tabs 0RF I10 - Essential (primary) hypertension Coding Level of Care Code Est Pt Level 4 (77103) Diagnoses COPD (chronic obstructive pulmonary disease) J44.9 Type 2 diabetes mellitus with hyperglycemia, without long-term current use of insulin E11.65 Diabetes mellitus type: type 2 Diabetes mellitus terminal computer operator insulin use: without custodial use Diabetes mellitus complication status: with hyperglycemia Dyslipidemia E78.5 Essential hypertension I10 Time Spent (min) 23
[2023-05-23 10:55] VITALS: BP 168/98; PULSE 61; O2SAT 99; BMI 34.7
[2023-05-24 13:18] VITALS: BP 170/90
== END 2023-05-23 11:36 | disposition home or self-care (01) ==
PROVIDERS: PCP Internal Medicine; Visit Provider Internal Medicine
DX: E11.65 Type 2 diabetes mellitus with hyperglycemia (principal); I48.92 Unspecified atrial flutter; E11.9 Type 2 diabetes mellitus without complications; E78.00 Pure hypercholesterolemia, unspecified; K21.9 Gastro-esophageal reflux disease without esophagitis
CPT/HCPCS: 83036; 99214

== ENCOUNTER 2023-05-24 08:24 | Outpatient (REF) | payer OTHER, SELFPAY ==
[2023-05-24 09:06] LABS: Estimated Average Glucose 111 mg/dL; Hemoglobin A1c % 5.5 % (<6.0)
[2023-05-24 09:25] LABS: Glucose Random 123 mg/dL (60-115)
== END 2023-05-24 08:25 | disposition home or self-care (01) ==
LOC: HO.LAB 08:24
PROVIDERS: Physician Assistant Surgical; PCP Internal Medicine; Visit Provider Internal Medicine
DX: E66.9 Obesity, unspecified (principal); E11.9 Type 2 diabetes mellitus without complications
CPT/HCPCS: 36415; 82947; 83036

== ENCOUNTER → 2023-05-27 10:49 | Outpatient (REF) | payer OTHER, SELFPAY ==
--- NOTE | 2023-05-27 10:53 | HM_ITS ---
Conclusion: 1. Patient was monitored for total period of 2 days and 23 hours 2. Baseline was normal sinus with average heart of 69 beats per minute 3. Rare ectopy noted with 1 3 beat run of an SVT at 139 beats per minute 4. No pauses noted 5. No patient reported events MTDD
== END ==
LOC: HO.CARD 10:49
PROVIDERS: PCP Internal Medicine; Visit Provider Nurse Practitioner
DX: R00.2 Palpitations (principal)
CPT/HCPCS: 93242

== ENCOUNTER → 2023-05-27 10:53 | Outpatient (BNV) | payer OTHER, SELFPAY | PROVIDERS: PCP Internal Medicine; Visit Provider Internal Medicine Cardiovascular Disease | DX: I47.10 Supraventricular tachycardia, unspecified (principal) | CPT/HCPCS: 93244 ==

== ENCOUNTER 2023-05-28 08:20 | Outpatient (REF) | payer OTHER, SELFPAY ==
[2023-05-28 09:01] LABS: Carbon Monoxide Refer to POC result; Carbon Monoxide POC 1.9 %
[2023-05-28 09:33] LABS: Creatinine Urine 102.37 mg/dL; Microalbumin Urine < 5.0 mg/L
[2023-05-28 09:33] LABS: Alanine Aminotransferase 29 U/L (0-31); Albumin Level 3.7 g/dL (3.5-5.0); Alkaline Phosphatase 100 U/L (39-117); Anion Gap 11 (12-20); Aspartate Amino Transferase 23 U/L (5-31); Bilirubin Total 0.4 mg/dL (0.0-1.0); Blood Urea Nitrogen 16 mg/dL (9-16); Calcium 9.3 mg/dL (8.4-10.2); Carbon Dioxide 24 mmol/L (22-29); Chloride 115 mmol/L (96-108); Cholesterol 201 mg/dL (<200); Estimated Glomerular Filt Rate > 60; Glucose Fasting 94 mg/dL (60-99); HDL Cholesterol 71 mg/dL (>40); LDL Cholesterol Calculated 119 mg/dL (<100); Potassium 4.3 mmol/L (3.3-5.1); Sodium 146 mmol/L (135-145); Total Protein 7.1 g/dL (6.5-8.0); Triglycerides 57 mg/dL (<150)
== END 2023-05-28 08:21 | disposition home or self-care (01) ==
LOC: HO.LAB 08:20
PROVIDERS: PCP Internal Medicine; Visit Provider Internal Medicine
DX: E78.5 Hyperlipidemia, unspecified (principal); I10 Essential (primary) hypertension; E11.9 Type 2 diabetes mellitus without complications; Z77.29 Contact with and (suspected) exposure to other hazardous substances
CPT/HCPCS: 36415; 80053; 80061; 82375; 82570

== ENCOUNTER 2023-05-30 08:38 | Outpatient (AMB) | payer OTHER, SELFPAY ==
[2023-05-30 08:41] VITALS: BP 148/80; PULSE 68; O2SAT 99; BMI 34.5
--- NOTE | 2023-05-30 08:41 | MHC.PC.OV ---
Vital Signs 05/30/23 08:41 05/30/23 09:02 Height 5 ft 4 in Weight 201 lb 0.8 oz BMI 34.5 BP 148/80 H 140/80 H Blood Pressure Location Lt brachial Lt brachial Position Sitting Sitting Pulse 68 Pulse Source Pulse Oximeter Pulse Oximetry (%) 99 Oxygen Delivery Method Room Air Intake Visit Reasons: Go over lab results Patch Worker Required: No Allergies hydralazine Allergy (Intermediate, Verified 05/30/23 08:52) hypotension Iodinated Contrast Media [IV CONTRAST] Allergy (Intermediate, Verified 05/30/23 08:52) BLISTERED RASH metformin Allergy (Intermediate, Verified 05/30/23 08:52) constipation Medication List - Last Reconciled 05/30/23 by MARIAMA Escalante albuterol sulfate 90 mcg/actuation 2 puffs inhalation Q4-6H PRN 30 days atorvastatin 80 mg PO DAILY 90 days bisoprolol fumarate 10 mg PO DAILY 90 days blood sugar diagnostic (FreeStyle Lite Strips) test daily blood-glucose meter (FreeStyle Lite Meter kit) test daily candesartan 32 mg PO DAILY fluticasone propion-salmeterol 500-50 mcg/dose 1 ea PO BID 30 days fluticasone propionate 50 mcg/actuation 1 spray intranasal DAILY gabapentin 300 mg PO BID 90 days ipratropium-albuterol 0.5 mg-3 mg(2.5 mg base)/3 mL 3 mL inhalation Q4-6H PRN 30 days lancets (FreeStyle Lancets) test daily linaclotide (Linzess) 290 mcg PO QAM pioglitazone 30 mg PO DAILY semaglutide 1 mg (0.75 mL) subcut QWEEK 90 days Tobacco use date assessed: 05/30/23 Fall risk assessment: No Falls in past year Last assessed Fall Risk: 05/30/23 Dental Screening Dental Screen Date: 05/30/23 Did you have a dental visit in the last 12 months?: Yes Did you have a dental problem in the last 6 months where you did not have access to dental care?: No Was dental information given to patient?: Patient has dentist HPI Go over lab results HPI Details Patient is a 67-year-old female who presents today to review her blood work results from 05/2023. Patient of Dr. Anderson. Medical history significant for hypertension, COPD, dyslipidemia, diabetes among others. Patient reports she did not take her blood pressure medications this morning yet, recheck blood pressure 140/80. A1c 5.5 05/2023. LDL 119 05/2023, previous 144 12/2022. Patient is to continue current medications as prescribed. 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 Polymyalgia rheumatica Syncope B12 deficiency Postmenopausal Diabetes mellitus Dyslipidemia COPD (chronic obstructive pulmonary disease) Essential hypertension Surgical History History of colonoscopy History of total abdominal hysterectomy History of bilateral breast reduction surgery History of abdominoplasty Family History Father Hypertension Mother Hypertension Cancer Maternal Grandmother Stroke Social History Housing: Apartment Alcohol intake: never Patient Tobacco Use Status: Never used Tobacco e-Cigarette/Vaping Use: Never Used Second Hand Smoke Exposure: No service: No Current occupational status: retired Cognitive needs: No Hearing needs: No Vision needs: No Questionnaire PHQ-9 Over the last 2 weeks, how often have you been bothered by any of the following problems? 1. Little interest or pleasure in doing things: not at all 2. Feeling down, depressed, or hopeless: not at all 3. Trouble falling or staying asleep, or sleeping too much: not at all 4. Feeling tired or having little energy: not at all 5. Poor appetite or overeating: not at all 6. Feeling bad about yourself - or that you are a failure or have let yourself or your family down: not at all 7. Trouble concentrating on things, such as reading the newspaper or watching television: not at all 8. Moving or speaking so slowly that other people could have noticed. Or the opposite - being so fidgety or restless that you have been moving around a lot more than usual: not at all 9. Thoughts that you would be better off or of hurting yourself in some way: not at all Total score: 0 Depression Screening Interpretation: Negative Depression Screening Done: Yes [id number] - PHQ-9 Billing: Yes Source: Developed by Drs. Ramos Almanzar, Zo Sanchez, Parmjit Aviles and colleagues, with an educational princess from [employer]. Thrive Questionnaire Date Thrive assessed: 05/30/23 I am a: Patient What is your living situation today?: I have a steady place to live Within the past 12 months, did the food you bought not last and you didn't have the money to get more?: Never true Within the past 12 months, did you worry whether your food would run out before you got money to buy more?: Never true Do you have trouble paying for medicines?: No Do you have trouble getting transportation to medical appointments?: No Do you have trouble paying your heating and electricity bill?: No Do you have trouble taking care of your child, family member or friend?: No Do you have trouble with day-to-day activities such as bathing, preparing meals, shopping, managing finances, etc.?: No Are you currently unemployed and looking for a job?: No Are you interested in more education?: No Currently or been in a relationship where the following occur: no concerns reported AUDIT C Alcohol Use Questionnaire (AUDIT-C) 1. How often do you have a drink containing alcohol?: Never 3. How often do you have six or more drinks on one occasion?: Never Total Score: 0 Score Reviewed/Action Taken: No EVI-7 AMB Questionnaire EVI-7 Date EVI - 7 assessed: 01/17/23 Source: Developed by Drs. Ramos Almanzar, Zo Sanchez, Parmjit Aviles and colleagues, with an educational princess from [employer]. Review of Systems Const Denies body aches, Denies chills, Denies fever(s) and Denies headache(s) ENT Denies dizziness, Denies otalgia, Denies headache(s), Denies nasal discharge, Denies sinus pain and Denies sore throat Card Denies chest pain, Denies lightheadedness and Denies dyspnea Resp Denies cough, Denies dyspnea and Denies wheezing GI Denies abdominal pain Denies dysuria Musc Denies myalgias Skin/Breast Denies rash Neuro Denies dizziness and Denies headache(s) Aller/Immun Denies wheezing Physical exam (Primary Care) Vital Signs: Last Vital Signs Pulse 68 05/30/23 08:41 BP 148/80 H 05/30/23 08:41 Pulse Ox 99 05/30/23 08:41 Oxygen Delivery Method Room Air 05/30/23 08:41 BMI result Body Mass Index 34.5 Tobacco/Smoking Status: Tobacco use Status Tobacco use date assessed 05/30/23 05/30/23 08:44 Patient Tobacco Use Status Never used Tobacco 05/30/23 08:44 e-Cigarette/Vaping Use Never Used 05/30/23 08:44 PHQ-9: PHQ-9 Score PHQ-9: Total score 0 05/30/23 08:44 Depression Screening Interpretation: Negative Thrive Assessment: Date of Thrive Assessment Date Thrive assessed 05/30/23 05/30/23 08:44 Currently or been in a relationship where the following occur: no concerns reported Const General: cooperative and no acute distress Orientation/consciousness: patient oriented x3 HENMT Head: Yes normocephalic and Yes atraumatic Throat: Yes posterior oropharynx normal Eyes General: appearance normal, both eyes and all related structures Neck Neck: Yes normal visual inspection and Yes full ROM Resp Effort & Inspection: normal respiratory effort and able to speak in complete sentences Auscultation: clear to auscultation bilaterally, no crackles, no rales, no rhonchi and no wheezes Cardio Rate: regular rate Rhythm: regular rhythm Heart sounds: S1 normal heart sound present and S2 normal heart sound present GI Auscultation: normal bowel sounds Skin General skin exam: no rashes or lesions noted Neuro General: patient oriented x3 Extrem General: Yes full ROM Assessment and Plan Assessment & Plan (1) Essential hypertension: Code(s): I10 - Essential (primary) hypertension Plan: Goal BP equal or less than 140/90 Continue bisoprolol and condesartan Low-sodium diet (2) Diabetes mellitus: Code(s): E11.9 - Type 2 diabetes mellitus without complications Qualifiers: Diabetes mellitus type: type 2 Diabetes mellitus [facility] insulin use: without ferry terminal supervisor use Diabetes mellitus complication status: with hyperglycemia Qualified Code(s): E11.65 - Type 2 diabetes mellitus with hyperglycemia Plan: A1c 5.5 05/2023 Continue current treatment Low-carbohydrate diet (3) Dyslipidemia: Code(s): E78.5 - Hyperlipidemia, unspecified Plan: LDL 119 05/2023 which is better than last time 144 12/2022, goal less than 100 Continue atorvastatin Reinforced low-cholesterol diet for weight loss Plan Patient will be traveling to [facility] for the winter time, keep appointment with PCP as scheduled Coding Level of Care Code Est Pt Level 4 (39860) Diagnoses Essential hypertension I10 Type 2 diabetes mellitus with hyperglycemia, without long-term current use of insulin E11.65 Diabetes mellitus type: type 2 Diabetes mellitus [facility] insulin use: without ferry terminal supervisor use Diabetes mellitus complication status: with hyperglycemia Dyslipidemia E78.5
[2023-05-30 09:02] VITALS: BP 140/80
== END 2023-05-30 09:07 | disposition home or self-care (01) ==
PROVIDERS: PCP Internal Medicine; Visit Provider Nurse Practitioner Family
DX: I10 Essential (primary) hypertension (principal); E11.65 Type 2 diabetes mellitus with hyperglycemia; E78.5 Hyperlipidemia, unspecified
CPT/HCPCS: 99214

== ENCOUNTER 2024-02-26 07:59 | Outpatient (REF) | payer OTHER, SELFPAY ==
[2024-02-26 10:56] LABS: MANUAL DIFF FLAG NO
[2024-02-26 11:01] LABS: Basophils Percent Auto 0.6 % (0-2); Eosinophils Absolute Auto 0.1 X10*3/uL (0.0-0.4); Eosinophils Percent Auto 1.4 % (0-4); Hematocrit 37.2 % (37.0-47.0); Hemoglobin 11.9 g/dl (12.0-16.0); Imm Gran Abs Auto 0.02 X10*3/uL (0.00-0.03); Imm Gran Pct Auto 0.3 % (0.0-0.4); Lymphocytes Absolute Auto 2.4 X10*3/uL (1.2-4.9); Lymphocytes Percent Auto 36.2 % (20-40); Mean Corpuscular Hemoglobin 32.2 pg (27.0-33.0); Mean Corpuscular Volume 100.5 fL (80.0-98.0); Mean Platelet Volume 9.6 fL (9.4-12.3); Monocytes Absolute Auto 0.6 X10*3/uL (0.1-1.2); Monocytes Percent Auto 9.8 % (2-11); Neutrophils Absolute Auto 3.4 x10*3/uL (2.0-8.3); Neutrophils Percent Auto 51.7 % (45-73); Platelet Count 272 X10*3/uL (160-400); Red Cell Distribution Width 13.3 % (11.0-16.0); White Blood Count 6.5 X10*3/uL (4.8-10.8)
[2024-02-26 11:16] LABS: Estimated Average Glucose 114 mg/dL; Hemoglobin A1c % 5.6 % (<6.0)
[2024-02-26 11:57] LABS: Erythrocyte Sedimentation Rate 23 MM/HR (0-20)
[2024-02-26 12:08] LABS: HIV AB/AG Nonreactive (Nonreactive); HIV Num 1 0.04 S/CO (0.00-0.99)
[2024-02-26 12:10] LABS: Syphilis Screen Nonreactive (Nonreactive)
[2024-02-26 16:17] LABS: Alanine Aminotransferase 27 U/L (0-31); Albumin Level 3.8 g/dL (3.5-5.0); Alkaline Phosphatase 90 U/L (39-117); Anion Gap 14 (12-20); Aspartate Amino Transferase 30 U/L (5-31); Bilirubin Total 0.3 mg/dL (0.0-1.0); Blood Urea Nitrogen 24 mg/dL (9-16); Calcium 9.8 mg/dL (8.4-10.2); Carbon Dioxide 22 mmol/L (22-29); Chloride 107 mmol/L (96-108); Cholesterol 218 mg/dL (<200); Estimated Glomerular Filt Rate > 60; Glucose Random 91 mg/dL (60-115); HDL Cholesterol 83 mg/dL (>40); Iron 62 mcg/dL (30-160); LDL Cholesterol Calculated 122 mg/dL (<100); Magnesium 2.2 mg/dL (1.6-2.6); Percent Iron Saturation 17 % (15-50); Potassium 4.5 mmol/L (3.3-5.1); Sodium 138 mmol/L (135-145); Total Iron Binding Capacity 356 mcg/dL (228-428); Total Protein 7.3 g/dL (6.5-8.0); Triglycerides 66 mg/dL (<150); Unsaturated Iron Binding 294 ug/dL
[2024-02-26 16:18] LABS: Rheumatoid Factor < 13.0 IU/mL (<15.0)
[2024-02-26 16:33] LABS: Ferritin 67 ng/mL (10-250); TSH reflex Free T4 1.32 uIU/mL (0.32-4.0)
[2024-02-26 16:46] LABS: Folate 9.3 ng/mL (> or = 4.0); Vitamin B12 649 pg/mL (200-900)
[2024-02-27 15:49] LABS: Homocysteine 10.1 umol/L (<10.4)
[2024-02-27 18:29] LABS: CRP High Sensitivity 3.6 mg/L
[2024-03-02 10:39] LABS: Anti Nuclear Antibody Screen NEGATIVE (NEGATIVE)
[2024-03-02 16:57] LABS: Vitamin D 25-OH, D2 <4 ng/mL; Vitamin D 25-OH, D3 34 ng/mL; Vitamin D 25-OH, Total 34 ng/mL (30-100)
[2024-03-04 15:23] LABS: Methylmalonic Acid 200 nmol/L (69-390)
== END 2024-02-26 08:00 | disposition home or self-care (01) ==
LOC: HO.LAB 07:59
PROVIDERS: PCP Internal Medicine; Visit Provider Nurse Practitioner Family
DX: Z11.4 Encounter for screening for human immunodeficiency virus [HIV] (principal); M35.3 Polymyalgia rheumatica; E53.8 Deficiency of other specified B group vitamins; D64.9 Anemia, unspecified; E11.65 Type 2 diabetes mellitus with hyperglycemia; H91.90 Unspecified hearing loss, unspecified ear; G43.009 Migraine without aura, not intractable, without status migrainosus; F09 Unspecified mental disorder due to known physiological condition
CPT/HCPCS: 36415; 80053; 80061; 82306; 82550; 82607; 82728; 82746; 83036; 83090; 83540; 83735; 83921; 84443; 85025; 85652; 86038; 86141; 86431; 86780; 87389; 99202

== ENCOUNTER 2024-02-26 07:59 | Outpatient (AMB) | payer OTHER, SELFPAY ==
--- NOTE | 2024-02-26 08:12 | A.OFFVIS_ITS ---
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 patient forgetting things like leaving stove on, if patient goes out she forgets where she was going, sense of direction. Allergies hydralazine Allergy (Intermediate, Verified 02/26/24 08:21) hypotension Iodinated Contrast Media [IV CONTRAST] Allergy (Intermediate, Verified 02/26/24 08:21) BLISTERED RASH metformin Allergy (Intermediate, Verified 02/26/24 08:21) constipation Medication List - Last Reconciled 02/26/24 by MARIAMA Knott albuterol sulfate 90 mcg/actuation 2 puffs inhalation Q4-6H PRN 30 days atorvastatin 80 mg PO DAILY 90 days bisoprolol fumarate 10 mg PO DAILY 90 days blood sugar diagnostic (FreeStyle Lite Strips) test daily blood-glucose meter (FreeStyle Lite Meter kit) test daily candesartan 32 mg PO DAILY fluticasone propion-salmeterol 500-50 mcg/dose 1 ea PO BID 30 days fluticasone propionate 50 mcg/actuation 1 spray intranasal DAILY gabapentin 300 mg PO BID 90 days ipratropium-albuterol 0.5 mg-3 mg(2.5 mg base)/3 mL 3 mL inhalation Q4-6H PRN 30 days lancets (FreeStyle Lancets) test daily linaclotide (Linzess) 290 mcg PO QAM pioglitazone 30 mg PO DAILY semaglutide 1 mg (0.75 mL) subcut QWEEK 90 days HPI Comments Details: Right-handed 68-yr-old female presents for neurological evaluation of cognitive difficulties. PMH: cognitive dysfunction, DM, HTN, HLD, PMR, COPD, asthma, ILD. Pt states he has had a previous stroke. Pt is accompanied by her dtr, Seda. Pt reports she has had memory issues for at least 12 yrs. 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 She reports she had a lot of increased stress r/t working at [employer], home/life stressoers, and increasing health issues- states fibromyalgia (but is referring to her PMR dx), difficulty controlling her HTN (developed in 1979 s/p preeclamsia). She states that she had a full work-up, multiple hospitalizations, and neuro-psych evaluations, and was diagnosed with pseudo-dementia. Thus, stopped working and went on short-term disability for about a year. 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 However, through 2013 to 2018, her cognitive symptoms slowly worsened/progressed to the point where she was forced to retire early. She states that she still feels her cognitive issues are worsening. She feels that she does not understand and speak as well, either in her primary language Faroese or secondary language Amharic. Feels that when many people are speaking, she cannot understand. She does have some progressive hearing loss- has not had an audiology eval yet. She does have VIRI, but is not using her CPAP. She may not be taking all of her supplement medications- not always taking potassium. Is taking Mag citrate- ? dose. Lives with her long-term partner between the [facility] and [place] (usually every summer-fall). Stays with her dtr when in the [place]. Ind w/ ADLs. Does need to take her time. Can forget the stive is on if leaves the kitchen. She manages her own finances. Occasionally may try to pay twice. Notes she needs to adjust to different payment systems between the 2 countries. She has a large home in - has house executive manager to help. She is more social when she is in the , but does see her former co-workers when in [place]. Her partner is a musician- so there is often music at home, and dancing, which she likes but recent headaches have made her more photophobic. She was exercising in the gym, but more recently the noise has been too bothersome. She is prone to joint and muscle pains, tends to have balls of tight muscles- has not seen rheumatology in a few yrs. She describes the headaches as: left sided headache for the past 5 months. She had this in the past, but not in the previous 3 yrs, denies usual headaches prior to the age of 50. The pain is pressure, a/w mid-frontal upper forehead swelling (like a little horn ), photophobia, phonophobia, occasionally nausea. The pain is strong for a few minutes, but then lays down with an eye mask. This happens about 3 x's per week- seems to be happening more often. Pt states she takes 2 500mg Ibuprofen . May occasionally take Tylenol. Uses Gabapentin for fibromyalgia pain. 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 Polymyalgia rheumatica Syncope B12 deficiency Postmenopausal Diabetes mellitus Dyslipidemia COPD (chronic obstructive pulmonary disease) Essential hypertension Surgical History History of colonoscopy History of total abdominal hysterectomy History of bilateral breast reduction surgery History of abdominoplasty Family History Father Hypertension Mother Hypertension Cancer Maternal Grandmother Stroke Social History Housing: Apartment Alcohol intake: never Patient Tobacco Use Status: Never used Tobacco e-Cigarette/Vaping Use: Never Used Second Hand Smoke Exposure: No service: No Current occupational status: retired Cognitive needs: No Hearing needs: No Vision needs: No Review of Systems Const All systems reviewed & are unremarkable except as noted in HPI and below Physical Exam Vital Signs: Last Vital Signs Pulse 57 02/26/24 08:19 BP 130/88 02/26/24 08:19 Pulse Ox 98 02/26/24 08:19 Oxygen Delivery Method Room Air 02/26/24 08:19 BMI result Body Mass Index 33.5 Const General: cooperative and no acute distress Orientation/consciousness: patient oriented x3 HEENT Head: Yes normocephalic Resp Effort & Inspection: normal respiratory effort and able to speak in complete sentences Neuro Other: Mild STM lapses and word finding difficulties. Easily follows all directions of physical exam. Very good Clock drawing General: patient oriented x3, CN's II-XI intact bilaterally (w/ exception of mild AK CHIN) and deep tendon reflexes 2+ bilaterally Gait exam (Neuro): Normal gait present Motor exam (neuro): 5/5 motor strength present throughout Coordination: [id number] test normal Psych Appearance: grossly normal Speech and movement: Normal speech and movement present Affect: normal affect Attitude: cooperative Thought process: Normal thought process present Orientation What is the (year) (season) (date) (day) (month)?: year, season, date, day and month Where are we (state) (county) (town or city) (hospital) (floor)?: state, county, town or city, hospital/clinic and floor Registration Name of 3 unrelated objects clearly and slowly, then ask patient to repeat all 3 of them. (1st repeat determines score. Make sure they can repeat all three): object 1, object 2 and object 3 Attention & Calculation (CHOOSE ONE) Spell WORLD backwards (DLROW): 2 letters Recall Ask patient to repeat the 3 items from question #3.: object 1, object 2 and object 3 Language Show patient a wristwatch & ask what it is. Repeat for pencil.: watch and pencil Ask the patient to repeat the phrase 'No ifs, ands, or buts' after you.: incorrect Ask the patient to 'take a piece of paper with their right hand' 'fold paper in half' 'place paper on floor': take paper in right hand, fold paper in half and place paper on floor Print the sentence 'CLOSE YOUR EYES' on a piece. If patient actually closes eyes then score.: followed written direction Give patient a blank piece of paper & ask to write a sentence. Score if it contains a noun & verb.: sentence contains subject and verb Ask patient to copy figure of intersecting pentagons exactly. Score if all 10 angles & 2 intersects are included.: all 10 angles present & 2 are intersected Score Score: 26 Quality Reporting (2019) Adult ([facility] ) Smoking risk assessment performed?: Yes Patient Tobacco Use Status: Never used Tobacco Assessment & Plan Assessment & Plan (1) Cognitive dysfunction: Code(s): F09 - Unspecified mental disorder due to known physiological condition Category: Medical (2) Worsening headaches: Code(s): R51.9 - Headache, unspecified Category: Medical (3) Hard of hearing: Code(s): H91.90 - Unspecified hearing loss, unspecified ear Category: Medical (4) Migraine without aura: Code(s): G43.009 - Migraine without aura, not intractable, without status migrainosus Category: Medical Plan Pt is advised to undergo: Labs to assess for common etiologies of cognitive difficulties. Brain MRI w/wo to assess for intracranial etiologies of cognitive difficulties in setting of progressive cognitive difficulties, headache onset after 50 yo, and polymyalgia rheumatica. Follow-up neuro-psych evaluation. MMSE 26/30. Very good clock drawing. Audiology evaluation- hearing loss may negatively impact cognitive functioning. Reestablish care with rheumatology. F/u sleep eval- pt declines at this time. For migraine w/o aura prevention: Start Riboflavin 400mg qam. Continue Mag citrate- max 400-500mg qhs. Continue Candesartan- used for HTN tx. For acute migraine w/o aura tx: Advised dtr to clarify pt's Ibuporfen dose- as pt states taking 2 500mg tabs . Limit Ibuprofen dose to < 400mg q 6 hrs- but use sparingly d/t HTN/DM dx. Trial Nurtec ODT 75mg qd prn (max 1 tab per day). Acute tx contraindications: All triptans and DHE d/t HTN, HLD, h/o stroke. f/u upon review of above and in 3-4 months or sooner prn. Orders: Orders Complete Blood Count Auto Diff 02/26/24 D64.9 - Anemia, unspecified, E11.65 - Type 2 diabetes mellitus with hyperglycemia, E53.8 - Deficiency of other specified B group vitamins, M35.3 - Polymyalgia rheumatica, R51.9 - Headache, unspecified Comprehensive Met. Panel 02/26/24 D64.9 - Anemia, unspecified, E11.65 - Type 2 diabetes mellitus with hyperglycemia, E53.8 - Deficiency of other specified B group vitamins, M35.3 - Polymyalgia rheumatica, R51.9 - Headache, unspecified Lipid Panel 02/26/24 D64.9 - Anemia, unspecified, E11.65 - Type 2 diabetes mellitus with hyperglycemia, E53.8 - Deficiency of other specified B group vitamins, M35.3 - Polymyalgia rheumatica, R51.9 - Headache, unspecified TSH reflex Free T4 02/26/24 D64.9 - Anemia, unspecified, E11.65 - Type 2 diabetes mellitus with hyperglycemia, E53.8 - Deficiency of other specified B group vitamins, M35.3 - Polymyalgia rheumatica, R51.9 - Headache, unspecified Vitamin B12 and Folate 02/26/24 D64.9 - Anemia, unspecified, E11.65 - Type 2 diabetes mellitus with hyperglycemia, E53.8 - Deficiency of other specified B group vitamins, M35.3 - Polymyalgia rheumatica, R51.9 - Headache, unspecified Magnesium 02/26/24 D64.9 - Anemia, unspecified, E11.65 - Type 2 diabetes mellitus with hyperglycemia, E53.8 - Deficiency of other specified B group vitamins, M35.3 - Polymyalgia rheumatica, R51.9 - Headache, unspecified IRON PROFILE 02/26/24 D64.9 - Anemia, unspecified, E11.65 - Type 2 diabetes mellitus with hyperglycemia, E53.8 - Deficiency of other specified B group vitamins, M35.3 - Polymyalgia rheumatica, R51.9 - Headache, unspecified Hemoglobin A1c 02/26/24 D64.9 - Anemia, unspecified, E11.65 - Type 2 diabetes mellitus with hyperglycemia, E53.8 - Deficiency of other specified B group vitamins, M35.3 - Polymyalgia rheumatica, R51.9 - Headache, unspecified HIV Ab/Ag 02/26/24 D64.9 - Anemia, unspecified, E11.65 - Type 2 diabetes mellitus with hyperglycemia, E53.8 - Deficiency of other specified B group vitamins, M35.3 - Polymyalgia rheumatica, R51.9 - Headache, unspecified Ferritin 02/26/24 D64.9 - Anemia, unspecified, E11.65 - Type 2 diabetes mellitus with hyperglycemia, E53.8 - Deficiency of other specified B group vitamins, M35.3 - Polymyalgia rheumatica, R51.9 - Headache, unspecified Erythrocyte Sedimentation Rate 02/26/24 D64.9 - Anemia, unspecified, E11.65 - Type 2 diabetes mellitus with hyperglycemia, E53.8 - Deficiency of other specified B group vitamins, M35.3 - Polymyalgia rheumatica, R51.9 - Headache, unspecified MR head/brain wo/w con 02/26/24 E11.65 - Type 2 diabetes mellitus with hyperglycemia, I10 - Essential (primary) hypertension, M35.3 - Polymyalgia rheumatica, R51.9 - Headache, unspecified VERO Reflex Titer and Pattern 02/26/24 D64.9 - Anemia, unspecified, E11.65 - Type 2 diabetes mellitus with hyperglycemia, E53.8 - Deficiency of other specified B group vitamins, M35.3 - Polymyalgia rheumatica, R51.9 - Headache, unspecified Rheumatoid Factor 02/26/24 D64.9 - Anemia, unspecified, E11.65 - Type 2 diabetes mellitus with hyperglycemia, E53.8 - Deficiency of other specified B group vitamins, M35.3 - Polymyalgia rheumatica, R51.9 - Headache, unspecified Vitamin D 25-OH (D2 and D3) 02/26/24 D64.9 - Anemia, unspecified, E11.65 - Type 2 diabetes mellitus with hyperglycemia, E53.8 - Deficiency of other specified B group vitamins, M35.3 - Polymyalgia rheumatica, R51.9 - Headache, unspecified Homocysteine 02/26/24 D64.9 - Anemia, unspecified, E11.65 - Type 2 diabetes mellitus with hyperglycemia, E53.8 - Deficiency of other specified B group vitamins, M35.3 - Polymyalgia rheumatica, R51.9 - Headache, unspecified Creatine Kinase Total 02/26/24 D64.9 - Anemia, unspecified, E11.65 - Type 2 diabetes mellitus with hyperglycemia, E53.8 - Deficiency of other specified B group vitamins, M35.3 - Polymyalgia rheumatica, R51.9 - Headache, unspecified CRP High Sensitivity 02/26/24 D64.9 - Anemia, unspecified, E11.65 - Type 2 diabetes mellitus with hyperglycemia, E53.8 - Deficiency of other specified B group vitamins, M35.3 - Polymyalgia rheumatica, R51.9 - Headache, unspecified Methylmalonic Acid 02/26/24 D64.9 - Anemia, unspecified, E11.65 - Type 2 diabetes mellitus with hyperglycemia, E53.8 - Deficiency of other specified B group vitamins, M35.3 - Polymyalgia rheumatica, R51.9 - Headache, unspecified Syphilis Screen 02/26/24 D64.9 - Anemia, unspecified, E11.65 - Type 2 diabetes mellitus with hyperglycemia, E53.8 - Deficiency of other specified B group vitamins, M35.3 - Polymyalgia rheumatica, R51.9 - Headache, unspecified Referrals Rheumatology Referral M35.3 - Polymyalgia rheumatica Audiology Referral D64.9 - Anemia, unspecified, E11.65 - Type 2 diabetes mellitus with hyperglycemia, E53.8 - Deficiency of other specified B group vitamins, H91.93 - Unspecified hearing loss, bilateral, M35.3 - Polymyalgia rheumatica, R51.9 - Headache, unspecified Neuropsychiatry Referral F09 - Unspecified mental disorder due to known physiological condition Medications: New riboflavin (vitamin B2) 400 mg PO DAILY 30 days 30 tabs 6RF rimegepant (Nurtec ODT) 75 mg PO ONCE 30 days PRN 16 tabs 3RF migraine headache MDD 1 tab Coding Level of Care Code New Pt Level 4 (31294) Diagnoses Cognitive dysfunction F09 Worsening headaches R51.9 Hard of hearing H91.90 Migraine without aura G43.009
[2024-02-26 08:19] VITALS: BP 130/88; PULSE 57; O2SAT 98; BMI 33.5
== END 2024-02-26 09:55 | disposition home or self-care (01) ==
PROVIDERS: PCP Internal Medicine; Visit Provider Nurse Practitioner Family
DX: R41.89 Other symptoms and signs involving cognitive functions and awareness (principal); G43.009 Migraine without aura, not intractable, without status migrainosus; H91.93 Unspecified hearing loss, bilateral
CPT/HCPCS: 99204

== ENCOUNTER 2024-03-03 12:14 | Outpatient (AMB) | payer OTHER, SELFPAY ==
--- NOTE | 2024-03-03 12:21 | A.OFFPC_ITS ---
Vital Signs 03/03/24 12:25 03/03/24 12:53 Height 5 ft 4 in Weight 196 lb BMI 33.6 BP 142/80 H 138/85 Blood Pressure Location Lt brachial Lt brachial Position Sitting Sitting Intake Visit Reasons: PE Intake Note: Patient here for a physical exam Life Skills Coordinator Volunteer Required: No Accompanied by: Self / Same As Patient Allergies hydralazine Allergy (Intermediate, Verified 03/03/24 12:35) hypotension Iodinated Contrast Media [IV CONTRAST] Allergy (Intermediate, Verified 03/03/24 12:35) BLISTERED RASH metformin Allergy (Intermediate, Verified 03/03/24 12:35) constipation Medication List - Last Reconciled 03/03/24 by Tegan Henriquez MD albuterol sulfate 90 mcg/actuation 2 puffs inhalation Q4-6H PRN 30 days atorvastatin 80 mg PO DAILY 90 days bisoprolol fumarate 10 mg PO DAILY 90 days blood sugar diagnostic (FreeStyle Lite Strips) test daily blood-glucose meter (FreeStyle Lite Meter kit) test daily candesartan 32 mg PO DAILY fluticasone propion-salmeterol 500-50 mcg/dose 1 ea PO BID 30 days fluticasone propionate 50 mcg/actuation 1 spray intranasal DAILY gabapentin 300 mg PO BID 90 days ipratropium-albuterol 0.5 mg-3 mg(2.5 mg base)/3 mL 3 mL inhalation Q4-6H PRN 30 days lancets (FreeStyle Lancets) test daily linaclotide (Linzess) 290 mcg PO QAM pioglitazone 30 mg PO DAILY riboflavin (vitamin B2) 400 mg PO DAILY 30 days rimegepant (Nurtec ODT) 75 mg PO ONCE PRN 30 days MDD 1 tab semaglutide 1 mg (0.75 mL) subcut QWEEK 90 days Tobacco use date assessed: 03/03/24 Fall risk assessment: No Falls in past year Last assessed Fall Risk: 03/03/24 Dental Screening Dental Screen Date: 03/03/24 Did you have a dental visit in the last 12 months?: Yes Did you have a dental problem in the last 6 months where you did not have access to dental care?: No Was dental information given to patient?: Patient has dentist HPI HPI Comments History of Present Illness Details This is 68-year-old female with diabetes mellitus type 2, COPD and interstitial lung disease that comes for her physical exam. A1c within goal. COPD stable with long-acting inhaler and follow by pulmonology. Colonoscopy done 2022. Mammogram done 2022. Diabetic eye exam scheduled for next month. LDL not on goal and I will add Zetia. DEXA scan done 2021 and another DEXA scan will be order for this year. Has macrocytic anemia and will be referred to Hematology-Oncology. Complains of left knee pain and would like to see ortho for that matter. She is obese with a BMI of 33.6 and was advised to do diet and exercise to reach BMI goal less than 30. [facility] Medical History (Updated 03/03/24 @ 12:54 by Tegan Henriquez MD) Family history of colorectal cancer 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 long-term systemic steroid user Polymyalgia rheumatica Syncope B12 deficiency Postmenopausal Diabetes mellitus Dyslipidemia COPD (chronic obstructive pulmonary disease) Essential hypertension Surgical History History of colonoscopy History of total abdominal hysterectomy History of bilateral breast reduction surgery History of abdominoplasty Family History Father Hypertension Mother Hypertension Cancer Maternal Grandmother Stroke Social History Housing: Apartment Alcohol intake: never Patient Tobacco Use Status: Never used Tobacco e-Cigarette/Vaping Use: Never Used Second Hand Smoke Exposure: No service: No Current occupational status: retired Cognitive needs: No Hearing needs: No Vision needs: No Questionnaire PHQ-9 Over the last 2 weeks, how often have you been bothered by any of the following problems? 1. Little interest or pleasure in doing things: not at all 2. Feeling down, depressed, or hopeless: not at all 3. Trouble falling or staying asleep, or sleeping too much: not at all 4. Feeling tired or having little energy: not at all 5. Poor appetite or overeating: not at all 6. Feeling bad about yourself - or that you are a failure or have let yourself or your family down: not at all 7. Trouble concentrating on things, such as reading the newspaper or watching television: not at all 8. Moving or speaking so slowly that other people could have noticed. Or the opposite - being so fidgety or restless that you have been moving around a lot more than usual: not at all 9. Thoughts that you would be better off or of hurting yourself in some way: not at all Total score: 0 Depression Screening Interpretation: Negative Depression Screening Done: Yes 12801 - PHQ-9 Billing: Yes Source: Developed by Drs. Ramos Almanzar, Zo Sanchez, Parmjit Aviles and colleagues, with an educational princess from [employer]. Thrive Questionnaire Date Thrive assessed: 03/03/24 I am a: Patient What is your living situation today?: I have a steady place to live Within the past 12 months, did the food you bought not last and you didn't have the money to get more?: Never true Within the past 12 months, did you worry whether your food would run out before you got money to buy more?: Never true Do you have trouble paying for medicines?: No Do you have trouble getting transportation to medical appointments?: No Do you have trouble paying your heating and electricity bill?: No Do you have trouble taking care of your child, family member or friend?: No Do you have trouble with day-to-day activities such as bathing, preparing meals, shopping, managing finances, etc.?: No Are you currently unemployed and looking for a job?: No Are you interested in more education?: No Please select the resources that you would like help with: None Currently or been in a relationship where the following occur: No concerns reported THRIVE Score: 0 AUDIT C Alcohol Use Questionnaire (AUDIT-C) 1. How often do you have a drink containing alcohol?: Never Total Score: 0 EVI-7 AMB Questionnaire EVI-7 Date EVI - 7 assessed: 03/03/24 Feeling nervous, anxious, or on edge: 1 = Several days Not being able to stop or control worryin = Not at all Worrying too much about different things: 1 = Several days Trouble relaxin = Not at all Being so restless that it is hard to sit still: 0 = Not at all Becoming easily annoyed or irritable: 0 = Not at all Feeling afraid as if something awful might happen: 0 = Not at all Total EVI-7 score (0-4 normal; 5-9 mild; 10-14 moderate; 15-21 severe): 2 Source: Developed by Drs. Ramos Almanzar, Zo Sanchez, Parmjit Aviles and colleagues, with an educational princess from [employer]. Review of Systems Const All systems reviewed & are unremarkable except as noted in HPI and below Card Denies chest pain at rest, Denies chest pain with activity, Denies edema, Denies irregular heart rhythm, Denies claudication, Denies dyspnea, Denies dyspnea on exertion, Denies orthopnea, Denies paroxysmal nocturnal dyspnea and Denies slow heart rate Resp Denies cough, Denies dyspnea and Denies dyspnea on exertion GI Denies abdominal pain, Denies change in bowel habits, Denies excessive flatus, Denies nausea and Denies vomiting Denies urinary incontinence, Denies urinary hesitancy and Denies urinary urgency Musc Denies abnormal gait, Denies atrophy, Denies deformity and Denies limited range of motion Skin/Breast Denies bleeding lesions, Denies changing lesions and Denies rash Neuro Denies abnormal gait, Denies behavioral changes and Denies lack of coordination Psych Denies behavioral changes Physical exam (Primary Care) Vital Signs: Last Vital Signs BP 138/85 03/03/24 12:53 BMI result Body Mass Index 33.6 BMI Assessment/Plan discussion: High BMI High, discussed plan: lifestyle, weight reduction, dietary and physical activity Tobacco/Smoking Status: Tobacco use Status Tobacco use date assessed 03/03/24 03/03/24 12:30 Patient Tobacco Use Status Never used Tobacco 03/03/24 12:30 e-Cigarette/Vaping Use Never Used 03/03/24 12:30 PHQ-9: PHQ-9 Score PHQ-9: Total score 0 03/03/24 12:59 Depression Screening Interpretation: Negative Thrive Assessment: Date of Thrive Assessment Date Thrive assessed 03/03/24 03/03/24 12:30 Currently or been in a relationship where the following occur: No concerns reported [facility] Head: Yes normal to inspection, Yes normocephalic and Yes atraumatic Ears: external ears normal Eyes General: appearance normal, both eyes and all related structures Eyelids: Yes eyelids normal Conjunctivae: conjunctivae normal Neck Neck: Yes normal visual inspection and Yes supple Resp Effort & Inspection: normal respiratory effort Auscultation: clear to auscultation bilaterally Cardio Jugular venous distension: no JVD Rate: regular rate Rhythm: regular rhythm Heart sounds: S1 normal heart sound present and S2 normal heart sound present GI Inspection: Yes normal to inspection Palpation (GI): Soft to palpation and nontender Auscultation: normal bowel sounds Skin General skin exam: no rashes or lesions noted Neuro General: no focal motor deficits Extrem General: Yes full ROM Psych Appearance: grossly normal Immunizations pneumoc 20-isaak conj-dip cr(PF) 0.5 mL IM syringe Performing Provider: Tegan Henriquez MD Performing Location: [facility] Administered by: COREY Mcneill on 03/03/24 12:59 Dose Route Admin Location Dispensed Lot Number Expiration Date ND Software Configuration Engineer 0.5 mL IM Right Deltoid 0.5 mL [id number] 12/20/24 5709-1672-93 [employer] VIS Given Date VIS Provided VIS Publication Date 03/03/24 Single Vaccine 21 Eligibility Eligibility Date Funding Source Not VFC Eligible 03/03/24 Private tetanus-diphtheria toxoids-Td 2 Lf unit-2 Lf unit/0.5 mL IM suspension Performing Provider: Tegan Henriquez MD Performing Location: [facility] Administered by: COREY Mcneill on 03/03/24 12:59 Dose Route Admin Location Dispensed Lot Number Expiration Date NDC Software Configuration Engineer 0.5 mL IM Left Deltoid 0.5 mL [id number] 08/31/24 [address]-2 [employer] VIS Given Date VIS Provided VIS Publication Date 03/03/24 Single Vaccine 21 Eligibility Eligibility Date Funding Source Not VFC Eligible 03/03/24 State funds Assessment and Plan Assessment & Plan (1) Physical exam: Code(s): Z00.00 - Encounter for general adult medical examination without abnormal findings Plan: Repeat in a year. (2) Left knee pain: Code(s): M25.562 - Pain in left knee Qualifiers: Chronicity: chronic Qualified Code(s): M25.562 - Pain in left knee; G89.29 - Other chronic pain Plan: X-ray ordered. Referred to Ortho. (3) Diabetes mellitus: Code(s): E11.9 - Type 2 diabetes mellitus without complications Qualifiers: Diabetes mellitus complication status: with hyperglycemia Diabetes mellitus manager terminal insulin use: without skilled nursing use Diabetes mellitus type: type 2 Qualified Code(s): E11.65 - Type 2 diabetes mellitus with hyperglycemia Plan: Continue Actos. A1c goal is equal or less than 7%. (4) COPD (chronic obstructive pulmonary disease): Code(s): J44.9 - Chronic obstructive pulmonary disease, unspecified Qualifiers: COPD type: unspecified COPD Qualified Code(s): J44.9 - Chronic obstructive pulmonary disease, unspecified Plan: Continue long-acting inhaler. Use rescue inhaler as needed. Follow-up with pulmonology. (5) ILD (interstitial lung disease): Code(s): J84.9 - Interstitial pulmonary disease, unspecified Plan: Follow-up with pulmonology. Orders: Orders XR knee LT 2V Today M25.562 - Pain in left knee Pneumococcal 20 Immunization Today Z23 - Encounter for immunization XR DEXA axial skeleton Today N95.9 - Unspecified menopausal and perimenopausal disorder Td State Immunization Today Z23 - Encounter for immunization Referrals Orthopedics Referral M25.562 - Pain in left knee Hematology & Oncology Referral D64.9 - Anemia, unspecified Medications: New ezetimibe 10 mg PO DAILY 90 tabs 1RF 90 days semaglutide (Ozempic) 2 mg (0.75 mL) subcut QWEEK 3 mL 2RF 4 weeks E11.65 - Type 2 diabetes mellitus with hyperglycemia Refilled atorvastatin 80 mg PO DAILY 90 tabs 3RF 90 days E78.5 - Hyperlipidemia, unspecified bisoprolol fumarate 10 mg PO DAILY 90 tabs 1RF 90 days I10 - Essential (primary) hypertension fluticasone propion-salmeterol 500-50 mcg/dose 1 ea PO BID 60 ea 6RF 30 days fluticasone propionate 50 mcg/actuation administer into each nostril 1 spray intranasal DAILY 16 grams 0RF ipratropium-albuterol 0.5 mg-3 mg(2.5 mg base)/3 mL 3 mL inhalation Q4-6H PRN 180 mL 6RF wheezing 30 days candesartan 32 mg PO DAILY 90 tabs 0RF I10 - Essential (primary) hypertension gabapentin 300 mg PO BID 180 caps 1RF 90 days Discontinued semaglutide Discontinued Reason: Patient Completed Course 1 mg (0.75 mL) subcut QWEEK 90 days 9.75 mL 1RF E11.9 - Type 2 diabetes mellitus without complications Coding Level of Care Code Est Pt Level 3 (60116) Est Pt Prev Care >65y(41964) Diagnoses Physical exam Z00.00 Chronic pain of left knee M25.562; G89.29 Chronicity: chronic Type 2 diabetes mellitus with hyperglycemia, without long-term current use of insulin E11.65 Diabetes mellitus complication status: with hyperglycemia Diabetes mellitus skilled nursing insulin use: without manager terminal use Diabetes mellitus type: type 2 Chronic obstructive pulmonary disease, unspecified COPD type J44.9 COPD type: unspecified COPD ILD (interstitial lung disease) J84.9 Time Spent (min) 40
[2024-03-03 12:25] VITALS: BP 142/80; BMI 33.6
[2024-03-03 12:53] VITALS: BP 138/85
== END 2024-03-03 13:01 | disposition home or self-care (01) ==
PROVIDERS: PCP Internal Medicine; Visit Provider Internal Medicine
DX: Z00.00 Encounter for general adult medical examination without abnormal findings (principal); E11.65 Type 2 diabetes mellitus with hyperglycemia; J44.9 Chronic obstructive pulmonary disease, unspecified; Z23 Encounter for immunization; J84.9 Interstitial pulmonary disease, unspecified; M25.562 Pain in left knee; G89.29 Other chronic pain
CPT/HCPCS: 90471; 90472; 90677; 90714; 99213; 99397

== ENCOUNTER → 2024-03-13 08:30 | Outpatient (REF) | payer OTHER, SELFPAY ==
--- NOTE | 2024-03-13 08:43 | CA_ITS ---
Transthoracic Echocardiogram Patient (Last, First, Middle): Mini Porter, Gender: Female Date of : 1955 Age: 68 Procedure Date: 03/13/2024 Procedure Type: Transthoracic Echocardiogram Location: OP Height: 162.56 cm Weight: 88.91 kg BSA: 1.94 m2 Heart Rate: 61 bpm BP: 138 / 84 mmHg Fur Cleaner: SB Referring MD: Patrice Barajas MD Symptoms: R06.02 - Shortness of breath Study Quality: Adequate ECG Rhythm: Sinus Conclusions: - Normal left ventricular size, thickness, systolic function, and wall motion. The visually estimated ejection fraction is between 60-65%. Abnormal diastolic function is noted. Spectral Doppler is indicative of a pseudonormal filling pattern. E/E prime ratio is between 8 and 15 consistent with indeterminate filling pressures. - Normal right ventricular cavity size and systolic function. - There is mild dilatation of the ascending aorta measuring 3.60 cm. Findings Left Ventricle Normal left ventricular size, thickness, systolic function, and wall motion. The visually estimated ejection fraction is between 60-65%. Abnormal diastolic function is noted. Spectral Doppler is indicative of a pseudonormal filling pattern. E/E prime ratio is between 8 and 15 consistent with indeterminate filling pressures. Right Ventricle Normal right ventricular cavity size and systolic function. Atria The left atrium is normal in size. The right atrium is normal in size. Aortic Valve Normal aortic valve structure and function. There is no aortic valve stenosis. There is no aortic valve regurgitation. Mitral Valve The mitral valve appears normal. There is mild mitral annular calcification. There is no mitral valve regurgitation. There is no mitral valve stenosis. Pulmonic Valve The pulmonic valve is likely normal. Tricuspid Valve Normal tricuspid valve structure. There is trace tricuspid valve regurgitation. Tricuspid regurgitation envelope is inadequate for calculation of right ventricular systolic pressure. Normal right atrial pressure. Great Vessels There is mild dilatation of the ascending aorta measuring 3.60 cm. The visualized portions of the pulmonary artery and branches are normal. Venous The inferior vena cava is normal in size and collapses greater than 50% with inspiration. Pericardium/Pleural There is no evidence of pericardial effusion. Prior Study Comparison Changes noted compared to prior study dated: 01/25/2021. EF normal. No RWMA. Measurements 2D Linear Measurements IVSd: 0.88 0.6-0.9/0.6-1.0 cm LVIDd: 4.81 3.9-5.3/4.2-5.9 cm LVIDd Index: 2.48 2.4-3.2/2.2-3.1 cm/m2 LVIDs: 3.74 2.0-3.6 cm LVPWd: 0.83 0.7-1.1 cm LA Diam: 3.10 2.7-3.8/3.0-4.0 cm LAIDs Index: 1.60 1.5-2.3 cm/m2 LV Mass: 173.18 67-162/88-224 g LV Mass Index: 89.27 43-95/49-115 g/m2 LVOT Diam: 2.40 3.0+(-)1.3 cm 2D Systolic Function EF 4C: 51.70 >55% EF 2C: 60.40 >55% EF BiP: 56.20 >55% Mitral Valve MV Pk E: 0.61 MV PK A: 0.63 MV Decel Time: 140.00 E/A: 1.00 E'Lateral: 8.27 E'Medial: 5.98 E/E' Med: 10.20 E/E' Lat: 7.40 PHT: 41.00 MVA PHT: 5.37 Decel [place]: 4.34 Aortic Valve AoV Pk Sravan: 1.18 AoV Pk Grad: 6.00 MUSHTAQ: 2.88 AI Pk Sravan: 3.99 AI [place]: 1.74 LVOT LVOT Pk Sravan: 0.75 LVOT Mn Sravan: 0.57 LVOT VTI: 0.17 LVOT Pk Grad: 2.00 LVOT Mn Grad: 1.00 LVOT Diam: 2.40 LVOT Area: 4.52 Diastolic Function MV Pk E: 0.61 MV Pk A: 0.63 E/A: 1.00 E'Medial: 5.98 E/E' Med: 10.20 E' Laterial: 8.27 E/E' Lat: 7.40 Right Ventricle TAPSE (mm): 20.00 TVS' Sravan: 9.25 Tricuspid Valve RA Press: 8.00 Great Vessels Aorta Sinus of Valsalva: 3.40 2.0-3.5 cm Ao Asc: 3.60 2.1-3.4 cm Pulmonary Valve PV Pk Sravan: 0.77 Peak PV Grad: 2.00 Updated in Other Vendor System with Status of Final David Greer MD electronically signed on 03/16/2024 5:49:53 PM with status of Final
== END ==
LOC: HO.CARD 08:30
PROVIDERS: PCP Internal Medicine; Visit Provider Internal Medicine
DX: R06.02 Shortness of breath (principal)
CPT/HCPCS: 93306

== ENCOUNTER → 2024-03-13 08:43 | Outpatient (BNV) | payer OTHER, SELFPAY | PROVIDERS: PCP Internal Medicine; Visit Provider Internal Medicine Cardiovascular Disease | DX: I34.81 Nonrheumatic mitral (valve) annulus calcification (principal); R93.1 Abnormal findings on diagnostic imaging of heart and coronary circulation | CPT/HCPCS: 93306 ==

== ENCOUNTER 2024-03-19 13:48 | Outpatient (AMB) | payer OTHER, SELFPAY ==
[2024-03-19 14:12] VITALS: BP 122/84; PULSE 59; BMI 33.8
--- NOTE | 2024-03-19 14:12 | MHC.OFFVIS ---
Vital Signs 03/19/24 14:12 Height 5 ft 4 in Weight 197 lb 1.492 oz BMI 33.8 BP 122/84 Blood Pressure Location Lt brachial Position Sitting Pulse 59 Intake Visit Reasons: 1 yr follow up Well Head Pumper Required: No Accompanied by: Self / Same As Patient Allergies hydralazine Allergy (Intermediate, Verified 03/03/24 12:35) hypotension Iodinated Contrast Media [IV CONTRAST] Allergy (Intermediate, Verified 03/03/24 12:35) BLISTERED RASH metformin Allergy (Intermediate, Verified 03/03/24 12:35) constipation Medication List - Last Reviewed 03/19/24 by Leonela Mares CMA albuterol sulfate 90 mcg/actuation 2 puffs inhalation Q4-6H PRN 30 days atorvastatin 80 mg PO DAILY 90 days bisoprolol fumarate 10 mg PO DAILY 90 days blood sugar diagnostic (FreeStyle Lite Strips) test daily blood-glucose meter (FreeStyle Lite Meter kit) test daily candesartan 32 mg PO DAILY duloxetine 60 mg PO DAILY 90 days duloxetine (Cymbalta) 20 mg PO DAILY 90 days ezetimibe 10 mg PO DAILY 90 days fluticasone propion-salmeterol 500-50 mcg/dose 1 ea PO BID 30 days fluticasone propionate 50 mcg/actuation 1 spray intranasal DAILY gabapentin 300 mg PO BID 90 days hydrochlorothiazide 25 mg PO DAILY ipratropium-albuterol 0.5 mg-3 mg(2.5 mg base)/3 mL 3 mL inhalation Q4-6H PRN 30 days lancets (FreeStyle Lancets) test daily linaclotide (Linzess) 290 mcg PO QAM pioglitazone 30 mg PO DAILY riboflavin (vitamin B2) 400 mg PO DAILY 30 days rimegepant (Nurtec ODT) 75 mg PO ONCE PRN 30 days MDD 1 tab semaglutide (Ozempic) 2 mg (0.75 mL) subcut QWEEK 4 weeks HPI Comments Details: Mini returns for follow-up. In the past, she was seen for various reasons. There is a history of cardiac catheterization in 2014, that had revealed only minor irregularities. She had reported some shortness of breath in the past but she also has coexisting COPD. Overall, she states that she is generally feeling fine. She actually does 45 minutes exercise on the treadmill and she has no complaints. No clear angina or any other complaints of cardiac nature. She states she is getting along okay. No new concerns. Has diabetes and hypertension. [facility] Medical History (Updated 03/03/24 @ 12:54 by Tegan Henriquez MD) Family history of colorectal cancer 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 acidizer water well systemic steroid user Polymyalgia rheumatica Syncope B12 deficiency Postmenopausal Diabetes mellitus Dyslipidemia COPD (chronic obstructive pulmonary disease) Essential hypertension Surgical History History of colonoscopy History of total abdominal hysterectomy History of bilateral breast reduction surgery History of abdominoplasty Family History Father Hypertension Mother Hypertension Cancer Maternal Grandmother Stroke Social History Housing: Apartment Alcohol intake: never Patient Tobacco Use Status: Never used Tobacco e-Cigarette/Vaping Use: Never Used Second Hand Smoke Exposure: No service: No Current occupational status: retired Cognitive needs: No Hearing needs: No Vision needs: No Review of Systems Const Denies chills, Denies fatigue, Denies fever(s), Denies weight gain and Denies weight loss ENT Denies dizziness Card Denies chest pain, Denies leg edema, Denies lightheadedness, Denies palpitations, Reports dyspnea on exertion, Denies orthopnea and Denies other Resp Denies cough and Reports dyspnea on exertion GI Denies hematochezia and Denies change in stool character Musc Denies abnormal gait, Denies muscle weakness, Denies numbness, Denies radiating pain into limb and Denies tingling Neuro Denies abnormal gait, Denies dizziness, Denies numbness and Denies tingling Endo Denies fatigue and Denies palpitations Physical Exam Vital Signs: Last Vital Signs Pulse 59 03/19/24 14:12 BP 122/84 03/19/24 14:12 BMI result Body Mass Index 33.8 Const General: comfortable and no acute distress Orientation/consciousness: patient oriented x3 HEENT Other: Unremarkable Head: Yes normal to inspection Neck Neck: Yes normal visual inspection Chest Chest palpation & inspection: normal inspection of the chest Resp Auscultation: clear to auscultation bilaterally Cardio Palpation: normal PMI Heart sounds: S1 normal heart sound present, S2 normal heart sound present, no gallops, no murmurs and no rubs GI Palpation (GI): Soft to palpation Back/Spine/Pelvis Other: unremarkable Skin General skin exam: no rashes or lesions noted Neuro General: patient oriented x3 Extrem General: Yes normal to inspection Psych Mental Status: mental status grossly normal Office Procedures EKG Details: EKG with underlying sinus rhythm at 59/Min; no significant ST-T changes and otherwise unremarkable. [place]. [id number], Complete Quality Reporting (2019) Adult ([facility] 138/[birth year]) Smoking risk assessment performed?: Yes Patient Tobacco Use Status: Never used Tobacco Assessment & Plan Assessment & Plan (1) SOB (shortness of breath): Code(s): R06.02 - Shortness of breath Category: Medical Plan Reported shortness of breath in the past but currently doing 45 minutes on the treadmill without any issues. In the echocardiogram, LVEF 60-65%. Reported diastolic dysfunction, but E/A ratio is 1 and medial, lateral e' are not too diminished either. Also, left atrial size is normal and there is no definitive evidence of pulmonary hypertension although TR jet was inadequate. Normal right atrial pressure. Hence do not suspect any significant diastolic dysfunction. In the Holter, underlying rhythm is sinus on average 69/Min. No major arrhythmias of significance. Per documentation, prior cardiac catheterization 2014 with minimal irregularities but otherwise unremarkable. Overall, mainly reassurance and aggressive risk factor modification. Adequate control of diabetes and blood pressure. If any concerning symptoms like undue shortness of breath, substernal chest pain or in fact anything cardiac sounding or bothersome, advised her to contact us immediately. She understands. Coding Level of Care Code Est Pt Level 3 (57697) Diagnoses SOB (shortness of breath) R06.02 CPT Codes EKG - CPT: 20091-[id number], Complete ([id number])
== END 2024-03-19 14:37 | disposition home or self-care (01) ==
PROVIDERS: PCP Internal Medicine; Visit Provider Internal Medicine
DX: R06.02 Shortness of breath (principal)
CPT/HCPCS: 93010; 99213

== ENCOUNTER → 2024-03-19 13:48 | Outpatient (BNVA) | payer OTHER, SELFPAY | PROVIDERS: PCP Internal Medicine; Visit Provider Internal Medicine | DX: R06.02 Shortness of breath (principal) | CPT/HCPCS: 93005; 99212 ==

== ENCOUNTER 2024-03-24 08:46 | Outpatient (REF) | payer OTHER, SELFPAY | END 2024-03-24 08:47 | disposition home or self-care (01) | LOC: HO.HOSX 08:46 | PROVIDERS: Visit Provider Orthopaedic Surgery | DX: M25.562 Pain in left knee (principal); G89.29 Other chronic pain | CPT/HCPCS: 99202 ==

== ENCOUNTER 2024-03-24 09:54 | Outpatient (AMB) | payer OTHER, SELFPAY ==
--- NOTE | 2024-03-24 10:00 | A.OFFVIS_ITS ---
Vital Signs 03/24/24 10:09 Height 5 ft 4 in Weight 197 lb BMI 33.8 Intake Visit Reasons: OPERATIONS/DISPATCH-Left knee pain Intake Note: Mini a 68 year old female who presents with complaints of progressively worsening left knee pain and giving way. The patient describes her pain as sharp in nature. Most of the pain is along the medial aspect of her knee. The patient states that her symptoms have gotten worse over the last few years in spite of continued non operative treatments. She has failed the last 6 weeks of conservative treatment. The patient states that she was seen by Rheumatology in 2020. She was diagnosed with polymyalgia rheumatica. She was taking prednisone at that time which gave her mild relief. She has also tried Tylenol which gives her minimal relief. She has had injections in the past which gave her no relief. The patient has done physical therapy exercises which aggravated her pain. She states that her left knee will give out several times per day. Allergies hydralazine Allergy (Intermediate, Verified 03/24/24 10:06) hypotension Iodinated Contrast Media [IV CONTRAST] Allergy (Intermediate, Verified 03/24/24 10:06) BLISTERED RASH metformin Allergy (Intermediate, Verified 03/24/24 10:06) constipation Medication List - Last Reconciled 03/24/24 by Mumtaz Sunshine MD albuterol sulfate 90 mcg/actuation 2 puffs inhalation Q4-6H PRN 30 days atorvastatin 80 mg PO DAILY 90 days bisoprolol fumarate 10 mg PO DAILY 90 days blood sugar diagnostic (FreeStyle Lite Strips) test daily blood-glucose meter (FreeStyle Lite Meter kit) test daily candesartan 32 mg PO DAILY duloxetine 60 mg PO DAILY 90 days duloxetine (Cymbalta) 20 mg PO DAILY 90 days ezetimibe 10 mg PO DAILY 90 days fluticasone propion-salmeterol 500-50 mcg/dose 1 ea PO BID 30 days fluticasone propionate 50 mcg/actuation 1 spray intranasal DAILY gabapentin 300 mg PO BID 90 days hydrochlorothiazide 25 mg PO DAILY ipratropium-albuterol 0.5 mg-3 mg(2.5 mg base)/3 mL 3 mL inhalation Q4-6H PRN 30 days lancets (FreeStyle Lancets) test daily linaclotide (Linzess) 290 mcg PO QAM pioglitazone 30 mg PO DAILY riboflavin (vitamin B2) 400 mg PO DAILY 30 days rimegepant (Nurtec ODT) 75 mg PO ONCE PRN 30 days MDD 1 tab semaglutide (Ozempic) 2 mg (0.75 mL) subcut QWEEK 4 weeks [facility] Medical History (Updated 03/03/24 @ 12:54 by Tegan Henriquez MD) Family history of colorectal cancer 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 Polymyalgia rheumatica Syncope B12 deficiency Postmenopausal Diabetes mellitus Dyslipidemia COPD (chronic obstructive pulmonary disease) Essential hypertension Surgical History History of colonoscopy History of total abdominal hysterectomy History of bilateral breast reduction surgery History of abdominoplasty Family History Father Hypertension Mother Hypertension Cancer Maternal Grandmother Stroke Social History Housing: Apartment Alcohol intake: never Patient Tobacco Use Status: Never used Tobacco e-Cigarette/Vaping Use: Never Used Second Hand Smoke Exposure: No service: No Current occupational status: retired Cognitive needs: No Hearing needs: No Vision needs: No Physical Exam Vital Signs: BMI result Body Mass Index 33.8 Const Other: Well-nourished well-developed very friendly female awake alert and oriented x3 in no acute distress Extrem Other: Bilateral lower extremity examination shows good capillary refill, no skin lesions noted, normal sensation light touch Left knee examination shows a minimal effusion, mild crepitus with range of motion, tenderness along her medial joint line, positive Bridgett's test, no instability Quality Reporting (2020) Adult ([facility] 138/[birth year]/12/[birth year]) Smoking risk assessment performed?: Yes Patient Tobacco Use Status: Never used Tobacco Assessment & Plan Assessment & Plan (1) Left knee pain: Code(s): M25.562 - Pain in left knee Category: Medical Qualifiers: Chronicity: chronic Qualified Code(s): M25.562 - Pain in left knee; G89.29 - Other chronic pain Plan Ms. Porter presents with progressively worsening left knee pain and mechanical symptoms most likely due to a tear of her medial meniscus. Thus, I will send the patient for an MRI of her left knee for further evaluation. I will see her back once the MRI is completed to discuss the findings and treatment options. Feel free to call me at any time should questions regarding her orthopedic management arise. Thank you very much for asking me to see this very friendly patient. I spent 20 minutes in reviewing the patient's records and imaging studies, seeing the patient and documenting in the medical record. Orders: Orders XR knee LT 3V 03/24/24 G89.29 - Other chronic pain, M25.562 - Pain in left knee MR knee LT wo con 03/24/24 G89.29 - Other chronic pain, M25.562 - Pain in left knee Coding Level of Care Code New Pt Level 3 (67048) Complex EM visit Add On G2211 Diagnoses Chronic pain of left knee M25.562; G89.29 Chronicity: chronic
[2024-03-24 10:09] VITALS: BMI 33.8
== END 2024-03-24 10:21 | disposition home or self-care (01) ==
PROVIDERS: PCP Internal Medicine; Visit Provider Orthopaedic Surgery
DX: M25.562 Pain in left knee (principal); G89.29 Other chronic pain
CPT/HCPCS: 99203; G2211

== ENCOUNTER 2024-04-01 13:07 | Outpatient (REF) | payer OTHER, SELFPAY ==
--- NOTE | ~2024-04-01 | CT_ITS ---
EXAMINATION: CT CHEST WITHOUT CONTRAST CLINICAL INFORMATION: Interstitial pulmonary disease, unspecified. COMPARISON: No prior CT. Chest radiograph 01/14/2017. Lung bases compared from CT abdomen and pelvis 03/27/2017. TECHNIQUE: Multidetector volumetric CT imaging of the chest was done. Axial MIP volume rendering provided. Sagittal and coronal reformatted images were obtained. This CT examination was performed using dose optimization techniques as appropriate, variously including the following: *Automated exposure control *Adjustment of mA and/or kV according to patient size (this includes techniques or standardized protocols for targeted exams where dose is matched to indication/reason for exam; i.e. extremities or head) *Use of iterative reconstruction technique DLP: 169 mGy-cm FINDINGS: PULMONARY NODULES: -Average diameter 5 mm oval nodule posterior lateral right middle lobe abutting minor fissure (series 9, image 100), most likely intrapulmonary lymph node. -Otherwise, no additional pulmonary nodules identified. LUNGS: -Mild subpleural reticular changes are present throughout the right lower lobe, and involving the posterior lateral aspect of the right middle lobe. These are nonspecific. -There is linear atelectasis or scarring in the posterior right costophrenic sulcus. -Minimal subpleural interstitial changes present in the costophrenic sulci bilaterally of the left lower lobe. -There is no peribronchovascular interstitial thickening. -There is no obvious air trapping or mosaic attenuation. -There is mild cylindrical bronchiectasis of the lower lobe bronchi without bronchial wall thickening or filling defect. -There is no pleural effusion or mass. There is no pneumothorax. MEDIASTINUM: -Normal-appearing thyroid. -Heart size normal. No pericardial effusion. -Probable tiny type I hiatus hernia. Esophagus otherwise normal. -No abnormal lymph nodes. -Mediastinum otherwise normal. CORONARY ARTERY CALCIFICATION: Mild three-vessel coronary calcification. AXILLA/CHEST WALL: -No lymphadenopathy. -No masses. UPPER ABDOMEN: No abnormalities. OSSEOUS STRUCTURES: -There is no acute or suspicious bony abnormality. There is a healed manubrial fracture . -There are mild degenerative changes of the spine. CT/CT chest wo IV con IMPRESSION: 1. Early subpleural interstitial changes mainly involving the right lower lobe and lateral right middle lobe. Minimal changes in the left lateral costophrenic sulcus. Findings are nonspecific and could represent early interstitial lung disease/UIP/NSIP, or conversely be related to senescent lung changes or nonspecific scarring. Findings appear slightly worsened when compared with 03/27/2017, representing a very slow change/progression. 2. No suspicious lung nodules. 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 Consider follow-up as felt clinically appropriate. One-year follow-up in high-risk patient recommended based on Fleischner criteria. 3. Small type I hiatus hernia suspected. 4. Additional ancillary findings as discussed. Fleischner guidelines were followed. Electronically signed by: Noah White MD 06/12/2024 02:20 PM [facility] [place]
== END 2024-04-01 13:08 | disposition home or self-care (01) ==
LOC: HO.CT 13:07
PROVIDERS: PCP Internal Medicine; Visit Provider Internal Medicine Pulmonary Disease
DX: J84.9 Interstitial pulmonary disease, unspecified (principal)
CPT/HCPCS: 71250

== ENCOUNTER → 2024-04-01 13:09 | Outpatient (BNV) | payer OTHER, SELFPAY | PROVIDERS: PCP Internal Medicine; Visit Provider Radiology Diagnostic Radiology | DX: J84.9 Interstitial pulmonary disease, unspecified (principal) | CPT/HCPCS: 71250 ==

== ENCOUNTER → 2024-04-06 13:40 | Outpatient (BNV) | payer OTHER, SELFPAY | PROVIDERS: PCP Internal Medicine; Referring Provider Internal Medicine; Visit Provider Internal Medicine Medical Oncology | DX: D64.9 Anemia, unspecified (principal) | CPT/HCPCS: 99204; 99213 ==

== ENCOUNTER 2024-04-08 12:59 | Outpatient (AMB) | payer OTHER, SELFPAY ==
--- NOTE | 2024-04-08 13:02 | A.OFFVIS_ITS ---
Vital Signs 04/08/24 13:04 Height 5 ft 5 in Weight 192 lb 14.472 oz BMI 32.1 BP 122/76 Blood Pressure Location Rt brachial Position Sitting Pulse 65 Pulse Source Doppler Pulse Oximetry (%) 98 Oxygen Delivery Method Room Air Intake Visit Reasons: asthma Allergies hydralazine Allergy (Intermediate, Verified 04/06/24 13:53) hypotension Iodinated Contrast Media [IV CONTRAST] Allergy (Intermediate, Verified 04/06/24 13:53) BLISTERED RASH metformin Allergy (Intermediate, Verified 04/06/24 13:53) constipation HPI HPI asthma: Details: 67-year-old lady, lifetime nonsmoker, previously treated by [facility] pulmonary for ?COPD, also with underlying history of exposure to industrial dusts presents complaining of wheezing and cough in when in the [place], but not when in [place] she does have a dog. She denies family history of lung disease. Patient is using Advair 500 and albuterol MDI with suboptimal control of her symptoms. She denies recent exacerbations.After the last office visit patient has completed her pulmonary function test that shows mild obstructive physiology, but normal diffusion capacity. Her immunologic workup is essentially negative. Her CT chest shows no evidence of underlying interstitial lung disease, but right-sided 7 mm nodule. 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 Polymyalgia rheumatica Syncope B12 deficiency Postmenopausal Diabetes mellitus Dyslipidemia COPD (chronic obstructive pulmonary disease) Essential hypertension Surgical History (Updated 04/06/24 @ 14:47 by Camelia Ferrer MD) History of colonoscopy History of total abdominal hysterectomy History of bilateral breast reduction surgery History of abdominoplasty Family History Father Hypertension Mother Hypertension Cancer Maternal Grandmother Stroke Social History (Updated 04/06/24 @ 13:53 by Noam Cervantes) Household Members: Family Housing: Apartment Alcohol intake: never Patient Tobacco Use Status: Never used Tobacco e-Cigarette/Vaping Use: Never Used Second Hand Smoke Exposure: No service: No Current occupational status: retired Cognitive needs: No Hearing needs: No Vision needs: No Review of Systems Const Denies daytime sleepiness, Denies excessive sweating, Denies fatigue, Denies fever(s), Denies lethargy, Denies malaise, Denies night sweats, Denies snoring and Denies weight loss Eyes Denies blurry vision and Denies itchy eyes ENT Denies nasal congestion, Denies post nasal drip, Denies sinus pain, Denies sinus pressure and Denies other ( Thrush) Card Denies chest pain, Denies pedal edema, Denies dyspnea, Denies orthopnea and Denies paroxysmal nocturnal dyspnea Resp Denies cough, Denies hemoptysis, Denies excessive phlegm production, Denies dyspnea, Denies snoring and Denies wheezing GI Denies abdominal pain and Denies heartburn Musc Denies myalgias, Denies arthralgias and Denies joint swelling Skin/Breast Denies rash Neuro Denies memory loss and Denies seizure-like activity Psych Denies abnormal sleep pattern, Denies anxiety and Denies memory loss Endo Denies excessive sweating, Denies fatigue and Denies heat intolerance Keith/Lymph Denies easy bruising Aller/Immun Denies itchy eyes, Denies seasonal rhinorrhea and Denies wheezing Physical Exam Vital Signs: Last Vital Signs Pulse 65 04/08/24 13:04 BP 122/76 04/08/24 13:04 Pulse Ox 98 04/08/24 13:04 Oxygen Delivery Method Room Air 04/08/24 13:04 BMI result Body Mass Index 32.1 Const General: no acute distress and alert Nutritional Appearance: not obese Orientation/consciousness: Other orientation findings ( oriented) HEENT Head: Yes atraumatic Eyes General: appearance normal, both eyes and all related structures Sclerae: sclerae normal EOM: EOMs intact bilaterally Neck Neck: Yes supple Lymphatic: no lymphadenopathy noted Resp Effort & Inspection: normal respiratory effort and no use of accessory muscles Auscultation: clear to auscultation bilaterally Cardio Rate: regular rate Rhythm: regular rhythm Heart sounds: no gallops, no murmurs and no rubs Skin General skin exam: other ( warm) Extrem General: No clubbing, No cyanosis and No edema Quality Reporting (2019) Adult ([facility] 138/09/12/[birth year]) Smoking risk assessment performed?: Yes Patient Tobacco Use Status: Never used Tobacco Assessment & Plan Assessment & Plan (1) Asthma: Code(s): J45.909 - Unspecified asthma, uncomplicated Category: Medical Plan: Well controlled on current regimen of Advair and albuterol MDI. Continue current regimen. (2) Pulmonary nodule: Code(s): R91.1 - Solitary pulmonary nodule Category: Medical Plan: Right middle lobe 7 mm nodule. Will repeat CT chest in 6 months. Orders: Orders CT chest wo IV con 10/06/24 R91.1 - Solitary pulmonary nodule Coding Level of Care Code Est Pt Level 4 (71191) Diagnoses Asthma J45.909 Pulmonary nodule R91.1
[2024-04-08 13:04] VITALS: BP 122/76; PULSE 65; O2SAT 98; BMI 32.1
== END 2024-04-08 13:18 | disposition home or self-care (01) ==
PROVIDERS: PCP Internal Medicine; Visit Provider Internal Medicine Pulmonary Disease
DX: J45.909 Unspecified asthma, uncomplicated (principal); R91.1 Solitary pulmonary nodule
CPT/HCPCS: 99214

== ENCOUNTER → 2024-04-08 12:59 | Outpatient (BNVA) | payer OTHER, SELFPAY | PROVIDERS: PCP Internal Medicine; Visit Provider Internal Medicine Pulmonary Disease | DX: J45.909 Unspecified asthma, uncomplicated (principal); R91.1 Solitary pulmonary nodule | CPT/HCPCS: 99212 ==

== ENCOUNTER 2024-04-09 12:37 | Outpatient (REF) | payer OTHER, SELFPAY | END 2024-04-09 12:38 | disposition home or self-care (01) | LOC: HO.SH 12:37 | PROVIDERS: PCP Internal Medicine; Visit Provider Nurse Practitioner Family | DX: Z01.118 Encounter for examination of ears and hearing with other abnormal findings (principal); H91.93 Unspecified hearing loss, bilateral | CPT/HCPCS: 92557; 92567 ==

== ENCOUNTER 2024-04-14 13:41 | Outpatient (REF) | payer OTHER, SELFPAY ==
--- NOTE | ~2024-04-14 | MR_ITS ---
EXAMINATION: MR KNEE WITHOUT CONTRAST, LEFT CLINICAL INFORMATION: Left knee pain COMPARISON: None available. TECHNIQUE: MRI of the knee without contrast was performed using routine sequences on a high-field scanner. FINDINGS: MENISCI: Medial Meniscus: Irregular tearing along the inner margin and superior articular surface of the posterior horn. The meniscal body is slightly extruded. Lateral Meniscus: Intact LIGAMENTS: Cruciate: Intact Collateral: Intact. Edema along the medial collateral ligament is likely related to medial compartment pathology. EXTENSOR MECHANISM: Intact ARTICULAR CARTILAGE/BONE: Patellofemoral Compartment: Areas of cartilage thinning and surface irregularity throughout the patella and central trochlea. Focal partial-thickness cartilage loss of the lateral trochlea superiorly. Medial Compartment: Peripheral cartilage thinning and subchondral marrow edema of the femoral condyle medially and a small marginal osteophytes. There is also a partial-thickness cartilage defect of the posterior nonweightbearing femoral condyle. Lateral Compartment: Near full-thickness cartilage loss and mild subchondral marrow edema of the tibia along the lateral tibial spine. Small marginal osteophytes. JOINT FLUID AND BURSAE: Small joint effusion and Boss's cyst. MR/MR knee LT wo con IMPRESSION: 1. Irregular tearing along the inner margin and superior articular surface of the posterior horn of the medial meniscus. 2. Mild tricompartmental osteoarthritis with a small joint effusion and Boss's cyst. Electronically signed by: Favio Jerome MD 04/15/2024 10:42 AM EDT
== END 2024-04-14 13:42 | disposition home or self-care (01) ==
LOC: HO.MRI 13:41
PROVIDERS: PCP Internal Medicine; Visit Provider Orthopaedic Surgery
DX: M25.562 Pain in left knee (principal); G89.29 Other chronic pain
CPT/HCPCS: 73721

== ENCOUNTER 2024-04-22 13:05 | Outpatient (RCR) | payer OTHER, SELFPAY ==
--- NOTE | 2024-04-30 12:05 | MHC.SP.ADU ---
Referring provider: Estrella Andrews NP Reason for Referral: Speech Cognitive Evaluation Type of Treatment: 67211 Standardized Cognitive Performance Testing, per hour Date of Plan of Treatment: 04/22/24 Onset of Symptoms/Illness: 04/22/18 Date Treatment Started: 04/22/24 Medical Diagnosis: Cognitive Dysfunction; Unspecified mental disorder due to known physiological condition, worsening headaches, Unspecified hearing loss. Primary Speech Language Diagnosis: R41.842 Visuospatial deficit History Mini Porter is a 68 year old woman who was referred by her CAR DRYER/Neurologist for a speech cognitive assessment. Mini explained a somewhat complex history of problems with her memory beginning 12 years ago. 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 However, she again began to struggle with cognitive issues at work and decided to retire early from her position in 2018. 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 she lives with her daughter in [place]. Mini reported to this commercial lines underwriter that she in general has been feeling more confident about her cognitive issues, and recently returned to work at [employer]. She is in the process of getting her formal license in Social Work (she holds a Master's Degree from [employer], and reported that she started PhD work but stopped), and recently enrolled in a course to complete it. She reported that she uses technology in innovative ways to assist her in her work, including Artificial Intelligence (CHAT [employer]PT), phone apps, Navigation apps when driving, and that she is proficient in short hand, which allows her to write everything down. She denied having any difficulty at work with learning new computer systems, data bases, or platforms for virtual therapy, as she is used to them and nothing is really new. Her primary difficulty recently has been getting lost when driving, including when driving in very familiar areas. However she has found with the use of a navigation araceli, she can monitor and follow directions given well, and has continued to drive and be independent. Her other primary complaint is having difficulty in situations where there is too much noise or activity, which can lead her to feel overwhelmed and needing to seek a quieter, calmer setting. She reports that she is primarily working from home at this time. She also reportst that she has periodic headache, but does not believe they are migraines. She stated that they are localized to a spot on her forehead, and are a searing pain that lasts for a few minutes, but then subsides. Mini has raised four children, who are all thriving in their adult lives, and has multiple grandchildren. She is happily reunited with her first boy friend, who is her mcfp partner, and leads a [place]. Mini is proficient in both Colombian and Jordanian, though feels stronger in her language skills in Colombian. Testing for this evaluation was conducted in Colombian, though Mini was encouraged to respond in either language if needed, which was rarely the case. 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 Assistive Devices in use: None Past Speech Language Therapy: None Other Therapies Seen in Current Calendar Year: None Reported Speech, Language, Cognition difficulties: Cognition Comments: Mini presents with a specific area of difficulty with visuo-spatial processing and visual memory, with all other aspects of memory, language and processing within normal limits. Quality of Life: Excellent Patient Stated Goal of Speech-Language Therapy: Assess functional cognitive skills. Assessment Tests of Cognition: RBANS Clinical Impression: Impaired RBANS: Repeatable Battery for the Assessment of Neuropsychological Status: The RBANS-Updated Form A assesses aspects of cognitive memory, language, and attention skills. The RBANS is considered a screening battery for cognitive function and is repeatable for the purpose of evaluating any changes in function. It is intended for use with adolescents and adults, ages 12 to 89 years. Composite domains assessed in this test are: Immediate Memory, Visuospatial/Constructional, Language, Attention, and Delayed Memory. Interpretation of test performance is based on normative data on individuals between ages 60-69. This test is designed to be administered in Jordanian, for this assessment items were directly translated and administered in Colombian by the examiner. the test is designed and normative data is based on Jordanian only, results may not accurately reflect Mini's full capacity, and should be interpreted with caution. Mini?s performance is summarized below: IMMEDIATE MEMORY: This domain assesses the individual's ability to remember information immediately after it is presented. Mini was read a list of 10 words and asked to repeat back as many words as she could. On first reading of the list she recalled only four of the items, however the test is repeated three more times to determine learning and retention capacity. On the second reading of the list, Mini recalled 8 of the items, and on the final two trials she demonstrated a perfect score. It was clear that she was systematically applying strategies to recall this information, and demonstrated strong learning and memory capacity. Mini was then read aloud a story and asked to recall as many details as possible. Upon the first reading of the story, Mini recalled 8 of 12 harrison details. Following the second reading, Mini then recalled 12 of 12 harrison details, again demonstrating strong capacity for auditory memory and learning. List Learning Total Score: 109 Scaled Score: 12 Interpretation: High Average Story Memory Total Score: 20 Scaled Score: 11 Interpretation: Average Immediate Memory Index Score: 109 Percentile: 73 Interpretation: Above average VISUOSPATIAL/CONSTRUCTIONAL: This domain assesses the individual's ability to perceive spatial relations and to construct a spatially accurate copy of a drawing. During the Figure Copy task, Mini was given an example of a specific figure to copy onto a piece of paper. Individuals are scored on both the drawing accuracy and placement of 10 different target items. Mini initially appeared to try to copy the figure in a fully rotated position, but quickly became confused by this choice. She then aligned her drawing with the original, and with this re-orientation was able to copy most of the figures with mildly distorted forms and lines. Mini worked slowly and laboriously through this task, which assisted performance, demonstrating 15/20 features, but resulting in a below average score. On the second task of Line Orientation which required Mini to match lines/angles to points on a protractor diagram, she consistently made errors in judging the alighment, although notably appear to learn the task, as her final responses were accurate. She identified 9/20 lines accurately, resulting in a well below average score. Cumulatively, her score for visual spatial skills was below averge. Figure Copy Total Score: 15 Scaled Score: 5 Interpretation: Below Average Line Orientation Total Score: 9 Percentile Group: <.2 Interpretation: Below Average Visuospatial/Constructional Index Score: 66 Percentile: 1 Interpretation: Below Average LANGUAGE: This domain assesses the individual's ability to respond verbally to either naming or retrieving learned material. was asked to name the word of various line drawings in a responsive naming task and then asked to name as many fruits and vegetables as he could in one minute in a Semantic Fluency task. Mini accurately named 10 of 10 drawings with relative ease. Mini fluidly recalled items in a category, identifying 19 fruits and vegetables in one minute. Scores in this domain were average to above average. Picture Naming Total Score: 10 Percentile Group: 75 Interpretation: Above Average Semantic Fluency Total Score: 20 Scaled Score: 9 Interpretation: Average Language Index Score: 98 Percentile: 45 Interpretation: Average ATTENTION: This domain assesses the individual's capacity to remember and manipulate both visually and orally presented information in short-term memory storage Noemi was read aloud strings of numbers of varying lengths then asked to recall the numbers. Mini recalled strings of numbers up to 7 digits, with consistent accuracy on the first trial of the item, demonstrating strong skills with immediate recall and attention, demonstrating an above average score. In the coding subtest, Mini was asked to write numbers to their matching symbols as quickly and efficiently as possible within 90 seconds. Mini attended well to the 90 second task, working slowly and accurately, no errors. However her slow pace had an affect on her score, identifying only 27 items, resulting in a below average score for this task. Due to her strength with Digit Span her overall score for this domain was average. Digit Span Total Score: 14 Scaled Score: 15 Interpretation: Above Average Coding Total Score: 28 Scaled Score: 4 Interpretation: Below Average Attention Index Score: 100 Percentile: 50 Interpretation: Average DELAYED MEMORY: This domain assesses the individual's anterograde memory capacity. Low scores indicate difficulties with recognition and retrieval of information from long-term memory stores. Mini demonstrated exceptionally strong skills recallling both verbal tasks that she had scored well on when they were initially presented. scoring well above average on recalling items from the list of words presented in the first task and an average score on recalling the story. However, when asked to recall the figure she has struggled to re-create earlier in the testing, she demonstrated significant visual confusion and limited recall, rotating items in the figure, mis-aligning lines and some recalled items in unexpected places. Her score on tis task was below average, but when combined with other scores in this domain yielded an average score for her delayed recall overall. List Recall Total Score: 9 Percentile Group: >75 Interpretation: Above Average List Recognition Total Score: 20 Percentile Group: 75 Interpretation: Above Average Story Recall Total Score: 10 Scaled Score: 11 Interpretation: Average Figure Recall Total Score: 7 Scaled Score: 5 Interpretation: Below Average Delayed Memory Index Score: 100 Percentile: 50 Interpretation: Average Finally, the Total Score on the Repeatable Battery for the Assessment of Neuropsychological Status (RBANS) is a sum of five index scores that reflects a person's current neuropsychological state. Although Mini demonstrated below average scores in visuo perceptual areas and visual recall, her strong performance on other aspects of this testing yielded a solidly average score. Sum of Index Scores: 473 Total Scale Score: 92 Percentile: 30 Interpretation: Average Yaw Cotton (1998). Repeatable Battery for the Assessment of Neuropsychological Status [Manual]. [place]: [place]. Additionally, Mini was administered the Bilingual Version of the Expressive One Word Picture Vocabulary tests to further assess word finding skills. On this test, Mini could respond to items using either Colombian or Jordanian for any item, however she was noted to respond mostly in Colombian with one exception ( asparagus ). She was noted at times to find the line drawings in this task mildly visually confusing, but generally quickly retrieved words. On words where she had difficulty she was responsive to phonemic cues. Her Raw Score on this test was 121; Standard score 89, and Percentile Rank: 23; demonstrating an average overall score. Impressions and Recommendations Summary: Overall on testing today, Mini demonstrated very strong skills with language based cognitive skills, with all subtests that evaluated this domain falling in the average to above average range.? In particular, Mini continues to demonstrate very strong skills with her focus and attention and her ability to learn new information and recall this information efficiently.? However, she demonstrated an area of significant weakness with her visual perceptual and visual memory scores.? When tasked with copying a complex diagram, she notably became quite visually confused, however with persistence was able to complete the task with some errors.? With regard to how this might functionally apply to daily activities, it may be the source of the difficulty Mini reports when she drives and becomes lost and confused even in areas she knows well.? She reported to me that she has been successful accommodating this difficulty by using an Auditory GPS Guidance system, which she can use effectively.? When asked about new learning on computer systems (e.g. data [employer]), she stated that all the systems she uses at work are familiar to her and she is not having difficulty at this time.? However, given the level of difficulty with visual perception, Mini is likely to at times have difficulty with tasks, and why she is having difficulty may not be readily apparent.? She is truly remarkable, though, for her use of adaptations/accommodations through technology, including using AI to assist with clerical aspects of her job. ?As her area of difficulty does not fall in the Language domain, a language based cognitive therapy intervention is not indicated at this time.? Mini demonstrates very strong skills with her capacity for new, language based learning, recall of language based information and her attention and focus.? She is using appropriate accommodations and technology for visually based tasks, but should be monitored for her needs in this area.? Impact on Daily Function/Activity Limitations: Daily Activities: Mild Interpersonal Interactions: None Education: Mild Employment: Mild Community: Mild Prognosis for Improvement: Excellent Recommendation for Speech Therapy: NA:Not indicated at this time Recommended Referrals to be Discussed with Primary Care Provider: Neuropsychological Eval, Follow up with Neurologist Patient Education: Completed: Yes Patient/Caregiver Education: n/a Comments/Barriers to Learning: None Union Representative Clinican/Clinical Fellow: No Supervisory Statement: n/a Speech Language Pathologist: Xena Tubbs MA-BAYRON/RETRIMMER
== END 2024-05-05 15:04 | disposition home or self-care (01) ==
LOC: HO.SH 13:05
PROVIDERS: PCP Internal Medicine; Visit Provider Nurse Practitioner Family
DX: H91.93 Unspecified hearing loss, bilateral (principal); R51.9 Headache, unspecified; M35.3 Polymyalgia rheumatica
CPT/HCPCS: 96125

== ENCOUNTER 2024-04-24 13:56 | Outpatient (AMB) | payer OTHER, SELFPAY ==
--- NOTE | 2024-04-24 14:37 | A.OFFVIS_ITS ---
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 Allergies hydralazine Allergy (Intermediate, Verified 04/06/24 13:53) hypotension Iodinated Contrast Media [IV CONTRAST] Allergy (Intermediate, Verified 04/06/24 13:53) BLISTERED RASH metformin Allergy (Intermediate, Verified 04/06/24 13:53) constipation Medication List - Last Reconciled 04/24/24 by KAREN Paul albuterol sulfate 90 mcg/actuation 2 puffs inhalation Q4-6H PRN atorvastatin 80 mg PO DAILY 90 days bisoprolol fumarate 10 mg PO DAILY 90 days blood sugar diagnostic (FreeStyle Lite Strips) test daily blood-glucose meter (FreeStyle Lite Meter kit) test daily candesartan 32 mg PO DAILY duloxetine 60 mg PO DAILY 90 days duloxetine (Cymbalta) 20 mg PO DAILY 90 days ezetimibe 10 mg PO DAILY 90 days fluticasone propion-salmeterol 500-50 mcg/dose (Wixela Inhub) 1 ea PO BID fluticasone propionate 50 mcg/actuation 1 spray intranasal DAILY gabapentin 300 mg PO BID 90 days hydrochlorothiazide 25 mg PO DAILY ipratropium-albuterol 0.5 mg-3 mg(2.5 mg base)/3 mL 3 mL inhalation Q4-6H PRN 30 days lancets (FreeStyle Lancets) test daily linaclotide (Linzess) 290 mcg PO QAM pioglitazone 30 mg PO DAILY riboflavin (vitamin B2) 400 mg PO DAILY 30 days rimegepant (Nurtec ODT) 75 mg PO ONCE PRN 30 days MDD 1 tab semaglutide (Ozempic) 2 mg (0.75 mL) subcut QWEEK 4 weeks HPI Comments Details: Patient is a pleasant 68-year-old female who presents to the metabolic clinic. She has a longstanding history of obesity, hypertension, diabetes mellitus. She has tried multiple weight loss methods in the past including fad diets without significant success. She is looking to participate in the metabolic clinic. 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 Polymyalgia rheumatica Syncope B12 deficiency Postmenopausal Diabetes mellitus Dyslipidemia COPD (chronic obstructive pulmonary disease) Essential hypertension Surgical History History of colonoscopy History of total abdominal hysterectomy History of bilateral breast reduction surgery History of abdominoplasty Family History Father Hypertension Mother Hypertension Cancer Maternal Grandmother Stroke Social History Household Members: Family Housing: Apartment Alcohol intake: never Patient Tobacco Use Status: Never used Tobacco e-Cigarette/Vaping Use: Never Used Second Hand Smoke Exposure: No service: No Current occupational status: retired Cognitive needs: No Hearing needs: No Vision needs: No Physical Exam Vital Signs: Last Vital Signs Temp 97.2 F 04/24/24 15:05 Pulse 65 04/24/24 15:05 BP 126/69 04/24/24 15:05 Pulse Ox 96 04/24/24 15:05 Oxygen Delivery Method Room Air 04/24/24 15:05 BMI result Body Mass Index 33.0 Quality Reporting (2019) Adult ([facility] 138/09/12/[birth year]) Smoking risk assessment performed?: Yes Patient Tobacco Use Status: Never used Tobacco Assessment & Plan Assessment & Plan (1) Obesity (BMI 30-39.9): Code(s): E66.9 - Obesity, unspecified Category: Medical Plan: This is a?68 yo female who will start our metabolic clinic program.? We will check a random glucose and hemoglobin A1c to track her diabetes as she is starting a new weight loss plan. 1. You have been given a paper with a link to our software araceli ([employer] to generate an individualized nutritional and exercise plan specific for you. Please send me a screenshot of the plans you will generate Meal to include lean meat (beef, fish, pork, turkey, chicken), or turkish yogurt, or egg whites, or beans with a salad with olive oil and fruits (berries, pears, apples, kiwi). Avoid salt, breads, potatoes, rice, pasta, desserts. 2. If you choose shakes, each shake would be drunk slowly, like coffee over a period of 2 hours. 3. If you choose bars, cut each bar in 4 pieces and eat each piece in 30 min to make each bar last 2 hours. 4. I emphasized the importance of measuring accurately the food portion and measure it when serving the food on a plate 5. The meal portions include a specific number of forks of meat (protein) and salad. You always eat the meat portion but you can replace up to half of salad/vegetables portion with rice, potatoes or pasta, or a fruit ?if you like. The less you do it the better weight loss will be. 6. One full-size fork is what can be scooped on the fork without falling aside and not what can be bit with the fork. Use regular forks like those you find in a typical restaurant. 7.? Please send me weight measurements from your body composition scale as soon as possible and then once a week. Always include your diet and exercise plan. The best time to weigh yourself is first thing in the morning after going to the bathroom. 8. The best choice for exercise would be recumbent bike and continued swimming. Alternatively start walking outside daily, tracking calories with a goal of 300 calories per day, daily. You can download the araceli [employer] which can track your time, distance and calories while walking outside. You press start in the araceli when you start and then stop when you are finished. 9.?Goal is to lose at least 2-3 lbs per week. 10. Please follow the diet plan exactly without any change. If you don't like s omething about the plan or you feel hungry you need to communicate with me so I can help you revise the plan. My cell phone number to communicate with me by text is [phone] Patient is morbidly obese and is not considered stable at this time.?I spent a total of 70 minutes reviewing/updating records, examining the patient and counseling the patient on weight management as detailed above. Orders: Orders Hemoglobin A1c Today E11.65 - Type 2 diabetes mellitus with hyperglycemia Glucose Random Today E11.65 - Type 2 diabetes mellitus with hyperglycemia
[2024-04-24 15:05] VITALS: BP 126/69; PULSE 65; TEMP 36.2; O2SAT 96; BMI 33.0
== END 2024-04-24 15:38 | disposition home or self-care (01) ==
LOC: HO.META 13:56
PROVIDERS: PCP Internal Medicine; Visit Provider Physician Assistant Surgical
DX: E66.9 Obesity, unspecified (principal)

== ENCOUNTER 2024-04-24 13:56 | Outpatient (REF) | payer OTHER, SELFPAY ==
[2024-04-24 17:28] LABS: Estimated Average Glucose 120 mg/dL; Hemoglobin A1C 120.8941 umol/L; Hemoglobin A1c % 5.8 % (<6.0); Total Hemoglobin (HGBA1C) 3012.1543 umol/L
[2024-04-24 17:48] LABS: Glucose Random 98 mg/dL (60-115)
== END 2024-04-24 13:57 | disposition home or self-care (01) ==
LOC: HO.LAB 13:56
PROVIDERS: PCP Internal Medicine; Visit Provider Physician Assistant Surgical
DX: E11.65 Type 2 diabetes mellitus with hyperglycemia (principal); E66.9 Obesity, unspecified
CPT/HCPCS: 36415; 82947; 83036; 99453

== ENCOUNTER 2024-04-28 12:45 | Outpatient (AMB) | payer OTHER, SELFPAY ==
--- NOTE | 2024-04-28 12:47 | A.OFFVIS_ITS ---
Vital Signs 04/28/24 12:48 Height 5 ft 4 in Weight 192 lb BMI 33.0 Intake Visit Reasons: OV- Left knee MRI review Intake Note: Mini a 68 year old female who presents with complaints of progressively worsening left knee pain and giving way. The patient describes her pain as sharp in nature. Most of the pain is along the medial aspect of her knee. The patient states that her symptoms have gotten worse over the last few years in spite of continued non operative treatments. She has failed the last 6 weeks of conservative treatment. The patient states that she was seen by Rheumatology in 2020. She was diagnosed with polymyalgia rheumatica. She was taking prednisone at that time which gave her mild relief. She has also tried Tylenol which gives her minimal relief. She has had injections in the past which gave her no relief. The patient has done physical therapy exercises which aggravated her pain. She states that her left knee will give out several times per day. She also has intermittent pain in her right knee. She states that her right knee pain is tolerable to her at this time. 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 Polymyalgia rheumatica Syncope B12 deficiency Postmenopausal Diabetes mellitus Dyslipidemia COPD (chronic obstructive pulmonary disease) Essential hypertension Surgical History History of colonoscopy History of total abdominal hysterectomy History of bilateral breast reduction surgery History of abdominoplasty Family History Father Hypertension Mother Hypertension Cancer Maternal Grandmother Stroke Social History Household Members: Family Housing: Apartment Alcohol intake: never Patient Tobacco Use Status: Never used Tobacco e-Cigarette/Vaping Use: Never Used Second Hand Smoke Exposure: No service: No Current occupational status: retired Cognitive needs: No Hearing needs: No Vision needs: No Physical Exam Vital Signs: BMI result Body Mass Index 33.0 Const Other: Well-nourished well-developed very friendly female awake alert and oriented x3 in no acute distress Extrem Other: Bilateral lower extremity examination shows good capillary refill, no skin lesions noted, normal sensation light touch Left knee examination shows a minimal effusion, minimal crepitus with range of motion, tenderness along her medial joint line, positive Bridgett's test, no instability Quality Reporting (2019) Adult ([facility] 13809/12/68) Smoking risk assessment performed?: Yes Patient Tobacco Use Status: Never used Tobacco Results Reviewed Results Reviewed: X-rays of the patient's left knee show mild diffuse joint space narrowing, no acute bony abnormalities MRI of the patient's left knee shows mild diffuse degenerative changes as well as a tear of the medial meniscus Assessment & Plan Assessment & Plan (1) Tear of medial meniscus of left knee: Code(s): S83.242A - Other tear of medial meniscus, current injury, left knee, initial encounter Category: Medical Plan Ms. Porter presents with progressively worsening left knee pain and mechanical symptoms due to a tear of her medial meniscus. I had a lengthy discussion with the patient regarding the treatment options. At this point she has failed continued non operative treatments. The risks and benefits of left knee arthr oscopic surgery were discussed at length with the patient. The patient wishes to proceed with surgery. Surgery will most likely involve left knee arthroscopic partial medial meniscectomy. The patient will be scheduled for next available date. She will follow-up as instructed. Feel free to call me at any time should questions regarding her orthopedic management arise. I spent 20 minutes in reviewing the patient's records and imaging studies, seeing the patient and documenting in the medical record. Coding Level of Care Code Est Pt Level 3 (49450) Complex EM visit Add On G2211 Diagnoses Tear of medial meniscus of left knee S83.242A
[2024-04-28 12:48] VITALS: BMI 33.0
== END 2024-04-28 13:07 | disposition home or self-care (01) ==
PROVIDERS: PCP Internal Medicine; Visit Provider Orthopaedic Surgery
DX: S83.242A Other tear of medial meniscus, current injury, left knee, initial encounter (principal)
CPT/HCPCS: 99213; G2211

== ENCOUNTER → 2024-04-28 12:45 | Outpatient (BNVA) | payer OTHER, SELFPAY | PROVIDERS: PCP Internal Medicine; Visit Provider Orthopaedic Surgery | DX: S83.242D Other tear of medial meniscus, current injury, left knee, subsequent encounter (principal) | CPT/HCPCS: 99212 ==

== ENCOUNTER 2024-05-06 12:11 | Outpatient (AMB) | payer OTHER, SELFPAY ==
[2024-05-06 12:13] VITALS: BP 114/74; PULSE 60; O2SAT 96; BMI 33.1
--- NOTE | 2024-05-06 12:13 | A.OFFVIS_ITS ---
Vital Signs 05/06/24 12:13 Height 5 ft 4 in Weight 192 lb 10.944 oz BMI 33.1 BP 114/74 Blood Pressure Location Rt brachial Position Sitting Pulse 60 Pulse Source Pulse Oximeter Pulse Oximetry (%) 96 Oxygen Delivery Method Room Air Intake Visit Reasons: pt req appointment Intake Note: Relevant Flags or Indicators ? 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 Cecile Morse presents in office today for a scheduled FUV to re-establish care. Pt last seen ~ 1 year ago. CC; Since last visit; labs ordered ? none. Rx ordered ? yes (linzess). Diagnostics/images ordered ? none. Relevant GI Sx as reported per pt? Diarrhea (related to linzess, pt states that it is constant but that it doesn't bother her. Pt would rather have the diarrhea than the constipation and other sx she had previously). ?Hx of any recent surgeries? None, however, has a surgery scheduled for LE. Pt reports needing a refill of linzess per their recall. 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 One small benign polyp found, however due to family history of colorectal cancer patient will return for colorectal screening in 5 years. Continue taking Linzess on daily basis. Patient was encouraged to increase fluid intake and activity to promote better bowel motility. Patient will follow-up with us on as needed basis. She is agreeable to this plan and verbalizes understanding of instructions. She was given the opportunity to ask questions and all questions answered. ? Thank you for allowing me to participate in her care Plan Medications Refilled linaclotide (Linzess) 290 mcg PO QAM 90 caps 2RF K59.00 TODAY'S VISIT Patient is here today for follow-up and re-evaluation. Patient reports that since last time I have seen her she has has been doing well. Patient states that she no longer feels constipated. Reports that Linzess is helping her. Occasional diarrhea when she takes Linzess, however patient admits that she feels better when she empties completely. Patient reports that she drinking plenty fluids. Denies melena, hematochezia, unintentional weight loss or ribbon like stools. Colonoscopy last year and patient needs to repeat colonoscopy in 5 years which will be in 2027 due to family history of CRC. Patient denies melena, hematochezia, unintentional weight loss or ribbon like stools. Patient denies dyspepsia, dysphagia or odynophagia. 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 Polymyalgia rheumatica Syncope B12 deficiency Postmenopausal Diabetes mellitus Dyslipidemia COPD (chronic obstructive pulmonary disease) Essential hypertension Surgical History (Updated 05/20/24 @ 15:40 by Perri Parekh RN) Hx of cardiac catheterization History of colonoscopy History of total abdominal hysterectomy History of bilateral breast reduction surgery History of abdominoplasty Family History Father Hypertension Mother Hypertension Cancer Maternal Grandmother Stroke Social History Household Members: Family Housing: Apartment Alcohol intake: never Patient Tobacco Use Status: Never used Tobacco e-Cigarette/Vaping Use: Never Used Second Hand Smoke Exposure: No service: No Current occupational status: retired Cognitive needs: No Hearing needs: No Vision needs: No Review of Systems Const Denies weight gain and Denies weight loss ENT Reports no additional complaints, Denies dysphagia and Denies odynophagia Card Reports no additional complaints Resp Reports no additional complaints GI Denies abdominal pain, Denies belching, Denies melena, Denies bloating, Denies change in bowel habits, Denies dysphagia, Denies excessive flatus, Denies dyspepsia, Denies heartburn, Denies diarrhea, Reports loose stools (from Linzess), Denies nausea, Denies odynophagia and Denies vomiting Reports no additional complaints Musc Reports no additional complaints Neuro Reports no additional complaints Psych Reports no additional complaints Endo Reports no additional complaints Physical Exam Vital Signs: Last Vital Signs Pulse 60 05/06/24 12:13 BP 114/74 05/06/24 12:13 Pulse Ox 96 05/06/24 12:13 Oxygen Delivery Method Room Air 05/06/24 12:13 BMI result Body Mass Index 33.1 Const General: healthy appearing, no acute distress and well developed Nutritional Appearance: obese Orientation/consciousness: patient oriented x3 Resp Effort & Inspection: normal respiratory effort, able to speak in complete sentences, no tracheal deviation and symmetric chest movement Auscultation: clear to auscultation bilaterally Cardio Rate: regular rate GI Inspection: Yes normal to inspection, No distended and Yes obesity Palpation (GI): Soft to palpation, not firm, nontender and No hepatosplenomegaly present Auscultation: normal bowel sounds General: Yes no CVA tenderness Back/Spine/Pelvis Back: no CVA tenderness Skin General skin exam: elasticity normal, turgor normal and dry skin Neuro General: patient oriented x3 Psych Appearance: grossly normal Mental Status: mental status grossly normal Quality Reporting (2019) Adult ([facility] ) Smoking risk assessment performed?: Yes Patient Tobacco Use Status: Never used Tobacco Assessment & Plan Assessment & Plan (1) 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: Code(s): K59.09 - Other constipation Category: Medical (2) Family history of colorectal cancer: Code(s): Z80.0 - Family history of malignant neoplasm of digestive organs Category: Medical Plan Continue Linzess daily. Increase fluid intake and activity to promote better bowel motility. Patient was encouraged to increase fiber may take probiotic. Patient will return to our office in 1 year, she will call if she will have any GI concerning symptoms. She is agreeable to this plan and verbalizes understanding of instructions. She was given the opportunity to ask questions and all questions answered. Thank you for allowing me to participate in her care Medications: Refilled linaclotide (Linzess) 290 mcg PO QAM 90 caps 2RF K59.00 - Constipation, unspecified Coding Level of Care Code Est Pt Level 3 (36428) Diagnoses 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 K59.09 Family history of colorectal cancer Z80.0 Time Spent (min) 25 Comment 15 minutes spent with patient and additional 10 minutes spent reviewing her records
== END 2024-05-06 12:43 | disposition home or self-care (01) ==
PROVIDERS: PCP Internal Medicine; Visit Provider Nurse Practitioner Family
DX: K59.09 Other constipation (principal); Z80.0 Family history of malignant neoplasm of digestive organs
CPT/HCPCS: 99213

== ENCOUNTER → 2024-05-06 12:11 | Outpatient (BNVA) | payer OTHER, SELFPAY | PROVIDERS: PCP Internal Medicine; Visit Provider Nurse Practitioner Family | DX: K59.09 Other constipation (principal); Z80.0 Family history of malignant neoplasm of digestive organs | CPT/HCPCS: 99212 ==

== ENCOUNTER 2024-05-19 09:06 | Outpatient (REF) | payer OTHER, SELFPAY ==
--- NOTE | ~2024-05-19 | MM_ITS ---
EXAMINATION: BONE DENSITOMETRY CLINICAL INDICATION: Unspecified menopausal and perimenopausal disorder. COMPARISON: Previous BD dated 05/15/2022 and baseline BD dated 04/17/2019. TECHNIQUE: Using a Dot[employer] DXA System (software version: 13.1) manufactured by [employer], dual-energy x-ray absorptiometry was performed of the lumbar spine and left hip. The images are of good technical quality. Summary results are attached. FINDINGS: LEFT FEMUR, NECK: Current: BMD 0.981 g/cm2, Z-score 0.7, T-score -0.4, normal. Prior: BMD 0.832 g/cm2. Baseline: BMD 0.913 g/cm2. LEFT FEMUR, TOTAL: Current: BMD 0.992 g/cm2, Z-score 0.7, T-score -0.1, normal, 12.2% increase from previous, 2.3% decrease from baseline (<5% change is not significant). Prior: BMD 0.884 g/cm2. Baseline: BMD 1.015 g/cm2. AP SPINE L1-L4 (excluding L3): The data of L1-L4 has been changed to exclude the L3 vertebral body, because significant degenerative change at this level may cause overestimation of lumbar spine density. Current: BMD 1.143 g/cm2, Z-score 0.7, T-score -0.2, normal, 6.0% decrease from previous, 0.5% decrease from baseline (<5% change is not significant). Prior: BMD 1.216 g/cm2. Baseline: BMD 1.149 g/cm2. IDENTIFIED RISK FACTORS: Early menopause, secondary osteoporosis, hysterectomy, thiazide, glucocorticoids, history of fracture (adult), rheumatoid arthritis, dementia, recurrent falls, height loss, secondary osteoporosis (type 1 diabetes). HISTORY OF FRACTURE: Wrist. MEDICATIONS: Vitamin D. MM/XR DEXA axial skeleton IMPRESSION: 1. DIAGNOSIS: Normal bone density based on the lowest T-score value of -0.4 in the femoral neck applying World Health Organization criteria. 2. 10-YEAR FRACTURE RISK PREDICTION, FRAX: Major osteoporotic fracture (clinical spine, forearm, hip or shoulder) 13.4%. Hip fracture 0.9%. 3. Treatment Recommendations: NOF guidelines recommend consideration for treatment in postmenopausal women and men age 50 and older presenting with the following: -A hip or vertebral (clinical or morphometric) fracture. -T-score less than or equal to -2.5 at the femoral neck or spine after appropriate evaluation to exclude secondary causes. -Low bone mass at the hip or spine and a 10-year fracture probability by FRAX of greater than or equal to 3% for hip fracture or greater than or equal to 20% for major osteoporotic fracture based on the [place] adapted WHO algorithm. 4. Other Recommendations: All treatment decisions require clinical judgment and consideration of individual patient factors, including patient preferences, comorbidities, previous drug use, risk factors not captured in the FRAX model (e.g. frailty, falls, vitamin D deficiency, increased bone turnover, interval significant decline in bone density) and possible under or overestimation of fracture risk by FRAX. FUTURE SCAN RECOMMENDATION: People with diagnosed cases of osteoporosis or at high risk for fracture should have regular bone mineral density tests. For patients eligible for Medicare, routine testing is allowed once every 2 years. The testing frequency can be increased to one year for patients who have rapidly progressing disease, those who are receiving or discontinuing medical therapy to restore bone mass, or have additional risk factors. Electronically signed by: Nuria Mendiola MD 05/25/2024 09:28 AM NICKIE
--- NOTE | ~2024-05-19 | MM_ITS ---
EXAMINATION: MM SCREENING DIGITAL BREAST TOMOSYNTHESIS, BILATERAL CLINICAL INFORMATION: Screening. Asymptomatic. COMPARISON: Mammography: Comparison is made with available priors TECHNIQUE: Digital breast mammography with tomosynthesis is performed in both the craniocaudal and mediolateral oblique views along with computer-aided detection (CAD). FINDINGS: There are scattered areas of fibroglandular density (ACR BI-RADS breast composition Category b). Bilateral reduction mammoplasty. Marker clip in the left breast. There are no significant masses, abnormal calcifications, or other abnormalities. MM/MM tomosynthesis screening BI IMPRESSION: No mammographic evidence of malignancy. ASSESSMENT: BI-RADS BI-RADS 2 - Benign Findings RECOMMENDATION: Routine annual mammography screening. 1 year F/U This examination should not preclude the clinical evaluation of a suspicious palpable abnormality. This patient's information was entered into a reminder system with a target due date for their next mammogram. Electronically signed by: Shruthi Samuels DO 05/19/2024 12:17 PM EDT
[2024-05-19 13:12] LABS: Vitamin B12 808 pg/mL (200-900)
== END 2024-05-19 09:07 | disposition home or self-care (01) ==
LOC: HO.MAMMO 09:06
PROVIDERS: Absent Provider Internal Medicine Medical Oncology; PCP Internal Medicine; Visit Provider Internal Medicine
DX: Z12.31 Encounter for screening mammogram for malignant neoplasm of breast (principal); N95.9 Unspecified menopausal and perimenopausal disorder; E53.8 Deficiency of other specified B group vitamins
CPT/HCPCS: 36415; 77063; 77067; 77080; 82607; 82746

== ENCOUNTER → 2024-05-19 09:45 | Outpatient (BNV) | payer OTHER, SELFPAY | PROVIDERS: Absent Provider Internal Medicine Medical Oncology; PCP Internal Medicine; Visit Provider Internal Medicine | DX: Z12.31 Encounter for screening mammogram for malignant neoplasm of breast (principal) | CPT/HCPCS: 77063; 77067 ==

== ENCOUNTER 2024-05-25 06:00 | Day surgery (SDC) | payer OTHER, SELFPAY ==
[2024-05-20 15:38] VITALS: BMI 33.0
[2024-05-25] VITALS (11 sets, daily range): BP systolic 116–148; BP diastolic 51–87; PULSE 56–65; RESP 14–17; TEMP 36.4–36.7; O2SAT 94–99; BMI 33.5
[2024-05-25 06:40] LABS: Glucose, Whole Blood 111 mg/dL (60-115)
--- NOTE | 2024-05-25 07:25 | P.CONAN_ITS ---
HPI - Anesthesia Eval Consult details Narrative: knee meniscectomy PMFSH Active Problems Active Problems: All Active Problems Tear of medial meniscus of left knee (Acute) Pulmonary nodule (Acute) Physical exam (Acute) Left knee pain (Acute) Migraine without aura (Acute) Hard of hearing (Acute) Cognitive dysfunction (Acute) Anemia (Acute) Worsening headaches (Acute) Hearing loss (Acute) Essential hypertension (Acute) Orthostatic hypotension (Acute) Palpitation (Acute) Exposure to carbon monoxide (Acute) Environmental allergies (Acute) Asthma (Acute) SOB (shortness of breath) (Acute) Hypercalcemia (Acute) Obesity (BMI 30-39.9) (Acute) Decreased hearing of both ears (Acute) Forgetfulness (Acute) Family history of colorectal cancer (Acute) Osteopenia (Acute) Adult general medical exam (Acute) Screening for colon cancer (Acute) Screening for breast cancer (Acute) 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 (Acute) 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 (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) Syncope (Acute) B12 deficiency (Acute) Postmenopausal (Acute) Diabetes mellitus (Acute) Dyslipidemia (Acute) COPD (chronic obstructive pulmonary disease) (Acute) Essential hypertension (Acute) Past Medical History Medical History Palpitations Anemia Migraines 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 Polymyalgia rheumatica Syncope B12 deficiency Postmenopausal Diabetes mellitus Dyslipidemia COPD (chronic obstructive pulmonary disease) Essential hypertension Family History Family History Father Hypertension Mother Hypertension Cancer Maternal Grandmother Stroke Family history of problems with anesthesia: No Surgical History Surgical History History of tonsillectomy Hx of cardiac catheterization History of colonoscopy History of total abdominal hysterectomy History of bilateral breast reduction surgery History of abdominoplasty History of Problems with Anesthesia: No Social History Social History Household Members: Family Housing: Apartment Alcohol intake: never Patient Tobacco Use Status: Former Tobacco user e-Cigarette/Vaping Use: Never Used Second Hand Smoke Exposure: No Use of substances other than those prescribed or required for medical reasons: No Are you DNR?: No Advance Directives: No Advance Directives Information Provided: Yes Advance Directives on File: No Recently lost weight without trying: No Nutrition Risks: No Nutritional Risk Patient : No service: No Current occupational status: retired Cognitive needs: No Hearing needs: No Vision needs: No Meds Allergies Allergy/AdvReac Type Severity Reaction Status Date / Time hydralazine Allergy Intermediate hypotension Verified 05/06/24 12:14 Iodinated Contrast Media Allergy Intermediate BLISTERED Verified 05/06/24 12:14 [IV CONTRAST] RASH metformin Allergy Intermediate constipatio Verified 05/06/24 12:14 n Exam Height,Weight and Vital Signs: Height 5 ft 4 in Weight 88.564 kg Last Vital Signs Temp 97.5 F 05/25/24 06:28 Pulse 61 05/25/24 06:28 Resp 16 05/25/24 06:28 BP 116/51 L 05/25/24 06:28 Pulse Ox 96 05/25/24 06:28 O2 Del Method Room Air 05/25/24 06:28 Pertinent Lab Results Pertinent Lab Results: Laboratory Tests 05/25/24 06:35 POC Glucose 111 Airway Mallampati Class: II TM Dist: >3cm Neck ROM: Full Heart: rrr Lungs: cta Assessment and Plan Assessment Anesthesia Assessment: Anesthesia Plan Discussed Final Anesthetic Review Family History of Problems with Anesthesia: No History of Problems with Anesthesia: No NPO: Yes ASA Class: III Final Preanesthetic Review: No Changes in Pt Med Stat, Meds/Allgs Chart Reviewed and Consent Obtained/Reviewed Patient Risk: Intermediate Procedure Risk: Low Anesthetic Plan Anesthetic Plan: GA Disposition: Standard PACU
--- NOTE | 2024-05-25 07:25 | HO.POSTANES ---
Post Anesthesia Evaluation Post Anesthesia Evaluation Date of Service: 05/27/24 Vital Signs: Vital Signs Temp Pulse Resp BP Pulse Ox O2 Del Method 05/25/24 06:28 97.5 F 61 16 116/51 L 96 Room Air
--- NOTE | 2024-05-25 08:45 | P.BOP_ITS ---
Brief Operative Note Date of Service: 05/25/24 Pre-op diagnosis: Left knee medial meniscus tear, left knee degenerative joint disease Post-op diagnosis: same Procedure: Left knee diagnostic arthroscopy with left knee arthroscopic partial medial meniscectomy, left knee arthroscopic chondroplasty of the undersurface of the patella as well as the trochlear groove Implants: none Surgeon: Mumtaz Sunshine MD Anesthesia: GLMA Was an Director Electrical Engineering used for this Procedure?: No Estimated blood loss (mL): 10 Pathology: none sent Condition: stable Disposition: PACU
--- NOTE | 2024-05-25 08:46 | W.PM.OPN ---
Operative Note Operative Note Date of Service: 05/25/24 Narrative: After the patient was identified as Mini Porter and her left knee was initialed by myself they were brought to the operating room where general anesthesia was induced by the anesthesiologist in routine fashion. The patient was given 2 g of IV Ancef preoperatively for infection prophylaxis. The patient's left lower extremity was prepped and draped in sterile fashion. A formal time-out was completed. Marcaine was injected into the planned incision sites as well as the patient's left knee joint. A #11 scalpel blade was used to make an anterolateral portal 1 cm proximal to the joint line and 1 cm lateral to the patellar tendon. Blunt trocar technique was used to enter the suprapatellar pouch with the knee in extension. Diagnostic arthroscopy showed multiple bands of thickened plica which would be excised at the end of the procedure. There were no loose bodies or abnormalities found in either the medial or lateral gutters. The articular surface of the patella showed diffuse grade 2 degenerative changes. The trochlear groove articular surface showed diffuse grade 2 degenerative changes. The patient's knee was flexed to 45 degrees and a valgus force was placed upon it. The medial compartment was entered. An anteromedial portal was made 1 cm proximal to the joint line and 1 cm medial to the patellar tendon. Probing of the medial meniscus showed a radial tear of the posterior horn. A partial medial meniscectomy was performed using the arthroscopic shaver. Following the partial meniscectomy the remainder of the meniscus tissue was stable. There were diffuse grade 1 degenerative changes of the medial femoral condyle as well as grade 1 degenerative changes of the medial tibial plateau. The patient's knee was placed into a neutral position. There was no injury to the anterior cruciate ligament. The patient's knee was then placed in the figure of 4 position and the lateral compartment was entered. There was no evidence of lateral meniscus tearing. There were minimal degenerative changes of the lateral femoral condyle and lateral tibial plateau. The patient's knee was once again brought into extension and the suprapatellar pouch was entered. The arthroscopic shaver and the ArthroCare Wand were used to excise the thickened bands of plica. The undersurfaces of the undersurface of the patella as well as the trochlear groove were made smooth using the arthroscopic shaver. The knee joint was irrigated and then drained. All arthroscopic instruments were removed. The 2 portals were closed with 3-0 nylon interrupted suture. The knee joint was injected with Marcaine. Dry sterile dressing and Frederick bandages were placed over the patient's knee. The patient was awoken and extubated in the operating room. The patient was transferred to the recovery room in stable condition.
[2024-05-25] MEDS: cefTRIAXone sodium 1 GM VIAL IVPUSH (08:48)
[2024-05-25] MEDS: fentaNYL citrate/PF 100 MCG/2 ML VIAL 25 MCG IVPUSH (08:53)
== END 2024-05-25 10:22 | disposition home or self-care (01) ==
PROVIDERS: PCP Internal Medicine; Visit Provider Orthopaedic Surgery
PROC: (CPT 29870; principal; 2024-05-25 07:30)
DX: S83.242A Other tear of medial meniscus, current injury, left knee, initial encounter (principal); M67.52 Plica syndrome, left knee; M17.12 Unilateral primary osteoarthritis, left knee; M23.52 Chronic instability of knee, left knee; M35.3 Polymyalgia rheumatica; X58.XXXA Exposure to other specified factors, initial encounter; Y93.9 Activity, unspecified; Y92.9 Unspecified place or not applicable; Y99.9 Unspecified external cause status; I10 Essential (primary) hypertension; E78.5 Hyperlipidemia, unspecified; E11.9 Type 2 diabetes mellitus without complications; J44.9 Chronic obstructive pulmonary disease, unspecified; E53.8 Deficiency of other specified B group vitamins; R55 Syncope and collapse; Z79.52 Long term (current) use of systemic steroids; Z88.8 Allergy status to other drugs, medicaments and biological substances; Z91.041 Radiographic dye allergy status; Z98.890 Other specified postprocedural states
CPT/HCPCS: 29881; 82947; J0131; J0171; J0690; J0696; J1100; J1885; J2003; J2405; J2704; J2795; J3010

== ENCOUNTER → 2024-05-25 06:00 | Outpatient (BNV) | payer OTHER, SELFPAY | PROVIDERS: PCP Internal Medicine; Visit Provider Orthopaedic Surgery | DX: S83.242A Other tear of medial meniscus, current injury, left knee, initial encounter (principal) | CPT/HCPCS: 29881 ==

== ENCOUNTER 2024-06-03 14:42 | Outpatient (AMB) | payer OTHER, SELFPAY ==
--- NOTE | 2024-06-03 14:53 | MHC.OFFVIS ---
Vital Signs 06/03/24 14:56 Height 5 ft 4 in Weight 200 lb 2.876 oz BMI 34.4 BP 120/72 Blood Pressure Location Lt brachial Position Sitting Pulse 62 Pulse Source Pulse Oximeter Intake Visit Reasons: PMR/LM Intake Note: Patient presents today with PMR, she complains in right shoulder for 10 days, then travels to the elbow, and low back pain. Accompanied by: Daughter Allergies hydralazine Allergy (Intermediate, Verified 06/03/24 15:00) hypotension Iodinated Contrast Media [IV CONTRAST] Allergy (Intermediate, Verified 06/03/24 15:00) BLISTERED RASH metformin Allergy (Intermediate, Verified 06/03/24 15:00) constipation HPI Comments Details: Patient is a 68-year-old female with hyperlipidemia, hypertension, asthma and diabetes who presents today for follow up of polymyalgia rheumatica Interval History: Patient has not been seen since 2020. At that time she was diagnosed with PMR and started on a prednisone taper. She went to the [facility] and has been on scattered doses of prednisone since then. She continues to complain of thigh and shoulder stiffness accompanied with pain. Rheumatologic History: Patient initially complained of diffuse pain mostly in her shoulders and hips. Was started on 15 mg prednisone in 2020 and had great improvement. She was lost to follow-up since 2020. 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 Syncope B12 deficiency Postmenopausal Diabetes mellitus Dyslipidemia COPD (chronic obstructive pulmonary disease) Essential hypertension Surgical History History of tonsillectomy Hx of cardiac catheterization History of colonoscopy History of total abdominal hysterectomy History of bilateral breast reduction surgery History of abdominoplasty Family History Father Hypertension Mother Hypertension Cancer Maternal Grandmother Stroke Social History Household Members: Family Housing: Apartment Alcohol intake: never Patient Tobacco Use Status: Former Tobacco user e-Cigarette/Vaping Use: Never Used Second Hand Smoke Exposure: No service: No Current occupational status: retired Cognitive needs: No Hearing needs: No Vision needs: No Review of Systems Const Details: Review of Systems Constitutional: Denies fever, chills, weight loss ENT: Denies vision changes, eye pain or eye redness, dental caries, dry mouth GI: Denies nausea, vomiting, diarrhea, abdominal pain, change in BM Pulm: Denies SOB, CARPENTER, hemoptysis, wheezing Cards: Denies chest pain, palpitations Skin: Denies Raynaud's, rash, nail changes, photosensitivity, MANAGER PRODUCT MARKETING: Denies headaches, weakness, paresthesias, recurrent falls MSK: as per HPI All other systems reviewed and are unremarkable except noted above Physical Exam Vital Signs: Last Vital Signs Pulse 62 06/03/24 14:56 BP 120/72 06/03/24 14:56 BMI result Body Mass Index 34.4 Physical Examination CONSTITUITIONAL Patient alert and cooperative. Well appearing and in no apparent painful distress HEENT Conjunctiva and sclera clear. ?Pupils equal round and reactive to light. ?No lymphadenopathy. CHEST/RESPIRATORY SYSTEM Normal respiratory effort and able to speak in complete sentences. ?Clear to auscultation bilaterally. ?No crackles, rales, rhonchi, wheezes heard. CARDIAC SYSTEM Regular rate and rhythm. ?S1 and S2 heard no murmurs. ?Radial pulses intact bilaterally MSK Hands: ?Good wallpaper hanger strength bilaterally - 5/5. ?No deformities noted. ?No synovitis noted to the MCPs, PIPs or DIPs. ?No tenderness to palpation of these joints. Wrists: ?Full range of motion at the wrists without pain. ?No tenderness to palpation or synovitis noted to the wrists. Elbows: Full range of motion without pain. No tenderness, weakness, swelling, increased warmth or erythema. Shoulders: Limited passive and active range of motion to shoulders. Secondary to pain Hips: Limited hip flexion secondary to pain Knees: ?Full range of motion. ?No tenderness, swelling, increased warmth or erythema.?No effusion or crepitations SKIN Skin intact without rashes. Quality Reporting (2019) Adult ([facility] 138/09/12/68) Smoking risk assessment performed?: Yes Patient Tobacco Use Status: Former Tobacco user Results Reviewed Results Reviewed: Laboratory Tests 02/05/19 02/26/24 04/06/24 14:24 10:54 15:14 WBC 6.5 6.3 RBC 3.70 L 4.05 L Hgb 11.9 L 13.2 Hct 37.2 40.2 Plt Count 272 292 ESR 23 H Rheumatoid Factor < 15.0 < 13.0 Cycl Citrul Peptide IgG <16 VERO Screen NEGATIVE Assessment & Plan Assessment & Plan (1) Polymyalgia rheumatica: Code(s): M35.3 - Polymyalgia rheumatica Category: Medical Plan: #Polymyalgia Rheumatica Patient carries a diagnosis of polymyalgia rheumatica however evaluation of her sed rate this time shows mild to modest elevation. We will check her inflammatory markers today and start her on 50 mg prednisone for the next 4 weeks. We will reassess efficacy at that time. 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: Code(s): Z79.52 - shelter (current) use of systemic steroids Category: Medical Plan: #Long-term Use of Steroids Discussed with patient the risks and benefits of steroid for managing the rheumatic condition Benefits include: - Reduced pain, improved mobility, increased participation in activities, and decreased progression of disease Risks include: - GI upset, potential ultrasound worsening or formation (especially in patients > 65 years old), elevated blood pressure/worsening hypertension, elevated blood sugar/worsening diabetes control, worsening of bone density, elevated lipids/worsening triglycerides, cataract formation, weight gain Recommended using proton pump inhibitors (PPIs) for the duration of steroid use to reduce the risk of gastric ulcers and vitamin-D daily to reduce the risk of osteoporosis Labs checked: ?A1c, T spot, hepatitis-B and C serologies Pneumocystis jiroveci prophylaxis: ?Patient with risk factors including steroids greater than 50 mg for more than 30 days, age greater than 60 years, and lung involvement from underlying rheumatic disease requires prophylaxis and will be given so Plan I spent 45 minutes reviewing the record and labs, seeing the patient, discussing the treatment plan and documenting in the medical record ? For next visit: Follow up improvement on steroids Orders: Orders Complete Blood Count Auto Diff Today M35.3 - Polymyalgia rheumatica Comprehensive Met. Panel Today M35.3 - Polymyalgia rheumatica C Reactive Protein Today M35.3 - Polymyalgia rheumatica Erythrocyte Sedimentation Rate Today M35.3 - Polymyalgia rheumatica Cyclic Citrullinated Peptide Today M35.3 - Polymyalgia rheumatica Rheumatoid Factor Today M35.3 - Polymyalgia rheumatica Medications: New prednisone 15 mg (3 x 5 mg) PO DAILY 4 weeks 84 tabs 0RF M35.3 - Polymyalgia rheumatica Coding Level of Care Code New Pt Level 4 (04139) Complex EM visit Add On G2211 Diagnoses Polymyalgia rheumatica M35.3 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 Z79.52
[2024-06-03 14:56] VITALS: BP 120/72; PULSE 62; BMI 34.4
== END 2024-06-03 15:38 | disposition home or self-care (01) ==
PROVIDERS: PCP Internal Medicine; Visit Provider Student in an Organized Health Care Education/Training Program
DX: M35.3 Polymyalgia rheumatica (principal); Z79.52 Long term (current) use of systemic steroids
CPT/HCPCS: 99204; G2211

== ENCOUNTER → 2024-06-03 14:42 | Outpatient (BNVA) | payer OTHER, SELFPAY | PROVIDERS: PCP Internal Medicine; Visit Provider Student in an Organized Health Care Education/Training Program | DX: M35.3 Polymyalgia rheumatica (principal); Z79.52 Long term (current) use of systemic steroids | CPT/HCPCS: 99202 ==

== ENCOUNTER 2024-06-03 15:51 | Outpatient (REF) | payer OTHER, SELFPAY | END 2024-06-03 15:52 | disposition home or self-care (01) | LOC: HO.LAB 15:51 | PROVIDERS: PCP Internal Medicine; Visit Provider Student in an Organized Health Care Education/Training Program | DX: Z13.89 Encounter for screening for other disorder (principal) ==

== ENCOUNTER 2024-06-04 07:49 | Outpatient (AMB) | payer OTHER, SELFPAY ==
--- NOTE | 2024-06-04 07:52 | A.OFFVIS_ITS ---
Vital Signs 06/04/24 07:55 Height 5 ft 4 in Weight 200 lb BMI 34.3 Handedness Right Intake Visit Reasons: NewProb-Right shoulder pain Intake Note: Mini is a 68 year old female who presents with complaints of progressively worsening right shoulder pain. The patient describes her pain as sharp in nature. Her pain has gotten worse over the last year in spite of continued non operative treatments. She has had cortisone injections given into her right shoulder in the past which gave her fairly good relief. She denies any weakness. She has done physical therapy exercises which aggravated her pain. She has also tried Tylenol and anti-inflammatory medicines which gave her minimal relief. Allergies hydralazine Allergy (Intermediate, Verified 06/04/24 07:56) hypotension Iodinated Contrast Media [IV CONTRAST] Allergy (Intermediate, Verified 06/04/24 07:56) BLISTERED RASH metformin Allergy (Intermediate, Verified 06/04/24 07:56) constipation Medication List - Last Reconciled 06/04/24 by Mumtaz Sunshine MD albuterol sulfate 90 mcg/actuation 2 puffs inhalation Q4-6H PRN atorvastatin 80 mg PO DAILY 90 days bisoprolol fumarate 10 mg PO DAILY 90 days blood sugar diagnostic (FreeStyle Lite Strips) test daily blood-glucose meter (FreeStyle Lite Meter kit) test daily candesartan 32 mg PO DAILY duloxetine (Cymbalta) 20 mg PO DAILY 90 days duloxetine 60 mg PO DAILY 90 days ezetimibe 10 mg PO DAILY 90 days fluticasone propion-salmeterol 500-50 mcg/dose (Wixela Inhub) 1 ea PO BID fluticasone propionate 50 mcg/actuation 1 spray intranasal DAILY gabapentin 300 mg PO BID 90 days hydrochlorothiazide 25 mg PO DAILY ipratropium-albuterol 0.5 mg-3 mg(2.5 mg base)/3 mL 3 mL inhalation Q4-6H PRN 30 days lancets (FreeStyle Lancets) test daily linaclotide (Linzess) 290 mcg PO QAM oxycodone 5 mg PO Q6H PRN pioglitazone 30 mg PO DAILY prednisone mg PO TID prednisone 15 mg (3 x 5 mg) PO DAILY 4 weeks [railing bathtub As directed] riboflavin (vitamin B2) 400 mg PO DAILY 30 days rimegepant (Nurtec ODT) 75 mg PO ONCE PRN 30 days MDD 1 tab semaglutide (Ozempic) 2 mg (0.75 mL) subcut QWEEK 4 weeks PFSH Medical History (Updated 06/03/24 @ 15:33 by Rita Prater MD) Polymyalgia rheumatica Palpitations Anemia Migraines 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 [facility] systemic steroid user Syncope B12 deficiency Postmenopausal Diabetes mellitus Dyslipidemia COPD (chronic obstructive pulmonary disease) Essential hypertension Surgical History History of tonsillectomy Hx of cardiac catheterization History of colonoscopy History of total abdominal hysterectomy History of bilateral breast reduction surgery History of abdominoplasty Family History Father Hypertension Mother Hypertension Cancer Maternal Grandmother Stroke Social History Household Members: Family Housing: Apartment Alcohol intake: never Patient Tobacco Use Status: Former Tobacco user e-Cigarette/Vaping Use: Never Used Second Hand Smoke Exposure: No service: No Current occupational status: retired Cognitive needs: No Hearing needs: No Vision needs: No Physical Exam Vital Signs: BMI result Body Mass Index 34.3 Const Other: Well-nourished well-developed very friendly female awake alert and oriented x3 in no acute distress Extrem Other: Bilateral upper extremity examination shows good capillary refill, no skin lesions noted, normal sensation light touch Right shoulder examination shows slightly decreased range of motion when compared to her left shoulder, 4+ out of 5 strength with supraspinatus testing, positive impingement signs, no instability Office Procedures AMB Joint Injection/Aspiration Joint Injection/Aspiration Primary Site: right shoulder Prep: site was prepped using aseptic technique Injected: 40 mg of, DepoMedrol and 1% plain lidocaine Procedure: The patient tolerated the procedure well Coding 87731 - Large joint Procedure code (CPT) selection complete Quality Reporting (2019) Adult ([facility] 138/09/12/68) Smoking risk assessment performed?: Yes Patient Tobacco Use Status: Former Tobacco user Results Reviewed Results Reviewed: X-rays of the patient's right shoulder taken today show severe acromioclavicular joint narrowing, a type 3 acromion, no acute bony abnormalities Assessment & Plan Assessment & Plan (1) Right shoulder pain: Code(s): M25.511 - Pain in right shoulder Category: Medical Plan Ms. Porter presents with right shoulder pain due to impingement syndrome. I had a lengthy discussion with the patient regarding the treatment options. The risks and benefits of a right shoulder cortisone injection were discussed at length with the patient. The patient wished to proceed. She tolerated the injection well. She will continue with her [id number] exercises to prevent stiffness. She will contact me prior to her follow-up appointment in 3 months should any questions or concerns arise. Feel free to call me at any time should questions regarding her orthopedic management arise. I spent 22 minutes in reviewing the patient's records and imaging studies, seeing the patient and documenting in the medical record. Orders: Orders XR shoulder RT min 2V Today M25.511 - Pain in right shoulder AMB Joint Injection/Aspiration Today M25.511 - Pain in right shoulder Coding Level of Care Code Est Pt Level 3 (76166) Complex EM visit Add On G2211 Diagnoses Right shoulder pain M25.511 CPT Codes Coding - 68754 Large joint: 05481 - Large joint ([id number])
[2024-06-04 07:55] VITALS: BMI 34.3
== END 2024-06-04 08:22 | disposition home or self-care (01) ==
PROVIDERS: PCP Internal Medicine; Visit Provider Orthopaedic Surgery
DX: M25.511 Pain in right shoulder (principal)
CPT/HCPCS: 20610; 99213

== ENCOUNTER 2024-06-04 08:20 | Outpatient (AMB) | payer OTHER, SELFPAY ==
--- NOTE | 2024-06-04 08:59 | MHC.OFFVIS ---
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 She states that she will get an urge and does not make it to the bathroom in time. She is wearing a all the time now. She also leaks with coughing or sneezing. She denies any urinary tract infections. Comorbidity diabetes. Urinalysis negative. I will trial Gemtesa 75 mg daily. Kidney bladder ultrasound ordered. She may benefit from urodynamics future, pending improvement symptoms.[place] leaving on [place]. 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 Syncope B12 deficiency Postmenopausal Diabetes mellitus Dyslipidemia COPD (chronic obstructive pulmonary disease) Essential hypertension Surgical History History of tonsillectomy Hx of cardiac catheterization History of colonoscopy History of total abdominal hysterectomy History of bilateral breast reduction surgery History of abdominoplasty Family History Father Hypertension Mother Hypertension Cancer Maternal Grandmother Stroke Social History Household Members: Family Housing: Apartment Alcohol intake: never Patient Tobacco Use Status: Former Tobacco user e-Cigarette/Vaping Use: Never Used Second Hand Smoke Exposure: No service: No Current occupational status: retired Cognitive needs: No Hearing needs: No Vision needs: No Review of Systems Const All systems reviewed & are unremarkable except as noted in HPI and below Reports no additional complaints Eyes Reports no additional complaints ENT Reports no additional complaints Card Reports no additional complaints Resp Reports no additional complaints GI Reports no additional complaints Reports as per HPI Musc Reports no additional complaints Skin/Breast Reports system reviewed and no additional complaints, except as documented Neuro Reports no additional complaints Psych Reports no additional complaints Endo Reports no additional complaints Keith/Lymph Reports no additional complaints Aller/Immun Reports no additional complaints Physical Exam Const General: cooperative, healthy appearing and no acute distress Nutritional Appearance: overweight Orientation/consciousness: patient oriented x3 HEENT Head: Yes normal to inspection, Yes normocephalic and Yes atraumatic Eyes Conjunctivae: conjunctivae normal Neck Neck: Yes normal visual inspection and Yes trachea midline Chest Chest palpation & inspection: normal inspection of the chest Resp Effort & Inspection: normal respiratory effort Cardio Rate: regular rate GI Inspection: Yes normal to inspection Neuro General: patient oriented x3 Psych Appearance: grossly normal Results AMB Urinalysis, Automated UA Leukoctes 0 Ugo/uL Last Edit by Tegan Sarah on 06/04/24 09:42 UA Nitrite Negative Last Edit by Tegan Sarah on 06/04/24 09:42 UA Urobilinogen 0.2 mg/dL Last Edit by Tegan Sarah on 06/04/24 09:42 UA Protein 15 mg/dL Last Edit by Tegan Sarah on 06/04/24 09:42 UA pH 6.0 Last Edit by Tegan Sarah on 06/04/24 09:42 UA Blood 0 Aneudy/uL Last Edit by Tegan Sarah on 06/04/24 09:42 UA Specific [place] 1.015 Last Edit by Tegan Sarah on 06/04/24 09:42 UA Ketone Negative Last Edit by Tegan Sarah on 06/04/24 09:42 UA Bilirubin 0 mg/dL Last Edit by Tegan Sarah on 06/04/24 09:42 UA Glucose 0 mg/dL Last Edit by Tegan Sarah on 06/04/24 09:42 Quality Reporting (2019) Adult ([facility] 138/09/12/[birth year]) Smoking risk assessment performed?: Yes Patient Tobacco Use Status: Former Tobacco user Results Reviewed Results Reviewed: Laboratory Last Values Urine pH (Auto) 6.0 06/04/24 09:40 Specific [place] (Auto) 1.015 06/04/24 09:40 Urine Protein (Auto) 15 mg/dL 06/04/24 09:40 Glucose (UA)(Auto) 0 mg/dL 06/04/24 09:40 Urine Ketones (Auto) Negative 06/04/24 09:40 Urine Blood (Auto) 0 Aneudy/uL 06/04/24 09:40 Urine Nitrite (Auto) Negative 06/04/24 09:40 Urine Bilirubin (Auto) 0 mg/dL 06/04/24 09:40 Urine Urobilinogen (Auto) 0.2 mg/dL 06/04/24 09:40 Leukocyte Esterase (Auto) 0 Ugo/uL 06/04/24 09:40 Assessment & Plan Assessment & Plan (1) Urinary incontinence: Code(s): R32 - Unspecified urinary incontinence Category: Medical (2) Urinary urgency: Code(s): R39.15 - Urgency of urination Category: Medical (3) Mixed stress and urge urinary incontinence: Code(s): N39.46 - Mixed incontinence Category: Medical Plan I will trial Gemtesa 75 mg daily. Kidney bladder ultrasound ordered. She may benefit from urodynamics future, pending improvement symptoms. Orders: Orders US retroperitoneal comp Today R32 - Unspecified urinary incontinence AMB Urinalysis Automated Today Z13.9 - Encounter for screening, unspecified Medications: New vibegron (Gemtesa) 75 mg PO DAILY 30 tabs 1RF Patient Instructions: The patient had an opportunity to ask questions regarding treatment plan. The patient expressed understanding and agreement with the above treatment plan. The patient is aware they should contact our office by phone for worsening of their current condition or the appearance of new symptoms. Compliance is encouraged with any medications and followup testing that is ordered. It is a privilege to be allowed the opportunity to participate in the urologic care of your patient. If you have any questions or concerns regarding treatment for the above conditions please do not hesitate to contact me. The office telephone contact is [phone]. This note is constructed in part using voice recognition software. While every effort has been made to ensure accuracy combat information center officer errors may have been included. Yours sincerely, García Moarles MD Coding Level of Care Code New Pt Level 4 (13532) Diagnoses Urinary incontinence R32 Urinary urgency R39.15 Mixed stress and urge urinary incontinence N39.46
== END 2024-06-04 10:05 | disposition home or self-care (01) ==
PROVIDERS: PCP Internal Medicine; Visit Provider Urology
DX: R39.15 Urgency of urination (principal); N39.46 Mixed incontinence; Z13.9 Encounter for screening, unspecified
CPT/HCPCS: 99204

== ENCOUNTER 2024-06-04 10:12 | Outpatient (REF) | payer OTHER, SELFPAY ==
[2024-06-04 10:47] LABS: MANUAL DIFF FLAG NO
[2024-06-04 11:15] LABS: Basophils Percent Auto 0.2 % (0-2); Eosinophils Absolute Auto 0.1 X10*3/uL (0.0-0.4); Eosinophils Percent Auto 1.1 % (0-4); Hemoglobin 10.3 g/dl (12.0-16.0); Imm Gran Abs Auto 0.08 X10*3/uL (0.00-0.03); Imm Gran Pct Auto 0.6 % (0.0-0.4); Lymphocytes Absolute Auto 2.3 X10*3/uL (1.2-4.9); Lymphocytes Percent Auto 17.5 % (20-40); Mean Corpuscular HGB Conc 32.2 g/dl (31.0-35.0); Mean Corpuscular Hemoglobin 31.6 pg (27.0-33.0); Mean Corpuscular Volume 98.2 fL (80.0-98.0); Mean Platelet Volume 9.6 fL (9.4-12.3); Monocytes Absolute Auto 1.4 X10*3/uL (0.1-1.2); Monocytes Percent Auto 11.2 % (2-11); Neutrophils Absolute Auto 8.9 x10*3/uL (2.0-8.3); Neutrophils Percent Auto 69.4 % (45-73); Platelet Count 249 X10*3/uL (160-400); Red Blood Count 3.26 X10*6/uL (4.20-5.50); Red Cell Distribution Width 13.1 % (11.0-16.0); White Blood Count 12.9 X10*3/uL (4.8-10.8)
[2024-06-04 11:50] LABS: Alanine Aminotransferase 12 U/L (0-31); Albumin Level 3.4 g/dL (3.5-5.0); Alkaline Phosphatase 98 U/L (39-117); Anion Gap 9 (12-20); Aspartate Amino Transferase 20 U/L (5-31); Bilirubin Total 0.4 mg/dL (0.0-1.0); Blood Urea Nitrogen 25 mg/dL (9-16); C Reactive Protein 7.39 mg/dL (< or = 0.50); Calcium 9.4 mg/dL (8.4-10.2); Carbon Dioxide 32 mmol/L (22-29); Chloride 100 mmol/L (96-108); Estimated Glomerular Filt Rate 47; Glucose Random 107 mg/dL (60-115); Potassium 4.6 mmol/L (3.3-5.1); Sodium 136 mmol/L (135-145); Total Protein 6.7 g/dL (6.5-8.0)
[2024-06-04 11:54] LABS: Erythrocyte Sedimentation Rate 66 MM/HR (0-20)
[2024-06-04 11:58] LABS: Rheumatoid Factor 14.8 IU/mL (<15.0)
[2024-06-08 21:43] LABS: Cyclic Citrullinated Peptide <16 UNITS
== END 2024-06-04 10:13 | disposition home or self-care (01) ==
LOC: HO.LAB 10:12
PROVIDERS: PCP Internal Medicine; Visit Provider Student in an Organized Health Care Education/Training Program
DX: Z13.89 Encounter for screening for other disorder (principal)
CPT/HCPCS: 36415; 80053; 85025; 85652; 86140; 86200; 86431

== ENCOUNTER 2024-06-04 11:28 | Outpatient (REF) | payer OTHER, SELFPAY ==
--- NOTE | ~2024-06-04 | XR_ITS ---
EXAMINATION: XR SHOULDER RIGHT CLINICAL INFORMATION: Pain in right shoulder M25.511. COMPARISON: None available TECHNIQUE: AP neutral and transscapular views of the right shoulder. FINDINGS: Moderate degenerative changes in the acromioclavicular joint with joint space narrowing and hypertrophic change. Moderate degenerative changes in the glenohumeral joint with inferior hypertrophic change. XR/XR shoulder RT min 2V IMPRESSION: Moderate degenerative changes. Electronically signed by: Mis Ruggiero MD 08/03/2024 12:58 PM NICKIE ESQUIVEL
== END 2024-06-04 11:29 | disposition home or self-care (01) ==
LOC: HO.HOSX 11:28
PROVIDERS: Visit Provider Orthopaedic Surgery
DX: M25.511 Pain in right shoulder (principal); N39.46 Mixed incontinence
CPT/HCPCS: 20610; 36415; 73030; 80053; 81003; 85025; 85652; 86140; 86200; 86431; 99202; 99212; J1010; J2003

== ENCOUNTER 2024-06-08 10:26 | Outpatient (REF) | payer OTHER, SELFPAY ==
--- NOTE | ~2024-06-08 | US_ITS ---
EXAMINATION: US RETROPERITONEAL COMPLETE (RENAL) CLINICAL INFORMATION: Unspecified urinary incontinence. COMPARISON: Renal ultrasound 09/19/2018. X-ray abdomen KUB 09/08/2018. CT abdomen and pelvis 03/27/2017. Ultrasound abdomen with elastography 01/03/2017. TECHNIQUE: Real-time imaging of the kidneys and bladder. FINDINGS: RIGHT KIDNEY: 9.4 x 4.5 x 4.2 cm (SAG x AP x TRV). The kidney is normal in size, contour, and echogenicity. Renal cortical thickness is normal. No renal calculi or hydronephrosis. A benign mid renal cortical 0.9 cm Bosniak class I renal cyst is noted which requires no additional imaging or follow up. No solid renal masses are seen. LEFT KIDNEY: 8.4 x 4.5 x 4.1 cm (SAG x AP x TRV). The kidney is normal in size, contour, and echogenicity. Renal cortical thickness is normal. No calculi or focal parenchymal lesions. No hydronephrosis. BLADDER: Partially distended. Bilateral ureteral jets are demonstrated. Prevoid bladder volume is 36.2 mL. Postvoid bladder volume is 3.9 mL. Additional findings: Incidental note is made of a complex 2.1 cm cyst with septation in the right lobe of the liver. US/US retroperitoneal comp IMPRESSION: Negative exam. Electronically signed by: Ryan Mc MD 06/08/2024 03:31 PM EST
== END 2024-06-08 10:27 | disposition home or self-care (01) ==
LOC: HO.US 10:26
PROVIDERS: PCP Internal Medicine; Visit Provider Urology
DX: R32 Unspecified urinary incontinence (principal)
CPT/HCPCS: 76770

== ENCOUNTER 2024-06-10 13:15 | Outpatient (AMB) | payer OTHER, SELFPAY ==
--- NOTE | 2024-06-10 13:19 | A.OFFVIS_ITS ---
Vital Signs 06/10/24 13:25 Height 5 ft 4 in Weight 200 lb BMI 34.3 Intake Visit Reasons: PO LT Knee 05/25/24 Intake Note: Mini a 68 year old female who presents today for a post operative left knee on 05/25/24 Patient reports she is doing well, states her pain is very mild. States next month she wilb be returning home to the [facility]. Allergies hydralazine Allergy (Intermediate, Verified 06/04/24 09:34) hypotension Iodinated Contrast Media [IV CONTRAST] Allergy (Intermediate, Verified 06/04/24 09:34) BLISTERED RASH metformin Allergy (Intermediate, Verified 06/04/24 09:34) constipation Medication List - Last Reconciled 06/10/24 by Sierra Mitchell PA-C [adult diapers pull-ups As directed] albuterol sulfate 90 mcg/actuation 2 puffs inhalation Q4-6H PRN atorvastatin 80 mg PO DAILY 90 days bisoprolol fumarate 10 mg PO DAILY 90 days blood sugar diagnostic (FreeStyle Lite Strips) test daily blood-glucose meter (FreeStyle Lite Meter kit) test daily candesartan 32 mg PO DAILY duloxetine (Cymbalta) 20 mg PO DAILY 90 days duloxetine 60 mg PO DAILY 90 days ezetimibe 10 mg PO DAILY 90 days fluticasone propion-salmeterol 500-50 mcg/dose (Wixela Inhub) 1 ea PO BID fluticasone propionate 50 mcg/actuation 1 spray intranasal DAILY gabapentin 300 mg PO BID 90 days hydrochlorothiazide 25 mg PO DAILY ipratropium-albuterol 0.5 mg-3 mg(2.5 mg base)/3 mL 3 mL inhalation Q4-6H PRN 30 days lancets (FreeStyle Lancets) test daily lidocaine 4% (Aspercreme (lidocaine)) 1 patch topical DAILY PRN 30 days linaclotide (Linzess) 290 mcg PO QAM oxycodone 5 mg PO Q6H PRN pioglitazone 30 mg PO DAILY prednisone mg PO TID prednisone 15 mg (3 x 5 mg) PO DAILY 4 weeks [railing bathtub As directed] riboflavin (vitamin B2) 400 mg PO DAILY 30 days rimegepant (Nurtec ODT) 75 mg PO ONCE PRN 30 days MDD 1 tab semaglutide (Ozempic) 2 mg (0.75 mL) subcut QWEEK 4 weeks vibegron (Gemtesa) 75 mg PO DAILY HPI HPI PO LT Knee 05/25/24 DR: Details: 68 yo female returns to the office today s/p LT knee 05/25/[address] Sunshine. She states she is doing well, she states she has some limitations with stairs. [facility] Medical History (Updated 06/10/24 @ 13:34 by Sierra Mitchell PA-C) Polymyalgia rheumatica Palpitations Anemia Migraines 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 assisted systemic steroid user Syncope B12 deficiency Postmenopausal Diabetes mellitus Dyslipidemia COPD (chronic obstructive pulmonary disease) Essential hypertension Surgical History History of tonsillectomy Hx of cardiac catheterization History of colonoscopy History of total abdominal hysterectomy History of bilateral breast reduction surgery History of abdominoplasty Family History Father Hypertension Mother Hypertension Cancer Maternal Grandmother Stroke Social History Household Members: Family Housing: Apartment Alcohol intake: never Patient Tobacco Use Status: Former Tobacco user e-Cigarette/Vaping Use: Never Used Second Hand Smoke Exposure: No service: No Current occupational status: retired Cognitive needs: No Hearing needs: No Vision needs: No Review of Systems Const All systems reviewed & are unremarkable except as noted in HPI and below Physical Exam Vital Signs: BMI result Body Mass Index 34.3 Extrem Other: Left knee incision is clean dry and intact no erythema no joint effusion. Range of motion 0-110 degrees. Calf supple nontender. Neurovascularly intact Quality Reporting (2020) Adult ([facility] 138/09/12/68) Smoking risk assessment performed?: Yes Patient Tobacco Use Status: Former Tobacco user Results Reviewed Results Reviewed: Date of Service: 05/25/24 Pre-op diagnosis: Left knee medial meniscus tear, left knee degenerative joint disease Post-op diagnosis: same Procedure: Left knee diagnostic arthroscopy with left knee arthroscopic partial medial meniscectomy, left knee arthroscopic chondroplasty of the undersurface of the patella as well as the trochlear groove Implants: none Surgeon: Mumtaz Sunshine MD Assessment & Plan Assessment & Plan (1) Tear of medial meniscus of left knee: Code(s): S83.242A - Other tear of medial meniscus, current injury, left knee, initial encounter Category: Medical (2) Osteoarthritis of left knee: Code(s): M17.12 - Unilateral primary osteoarthritis, left knee Category: Medical Plan Sutures removed Steri-Strips applied. I offered her a course of physical therapy however she is leaving over the next few weeks to return back home with the [facility]. I did recommend that she wait about 4-6 weeks until she returns to impact activity such as the treadmill. She can slowly increase activities as tolerated and if symptoms persist or worsen she will contact our office otherwise follow-up as needed Coding Level of Care Code Global (23634) Diagnoses Tear of medial meniscus of left knee S83.242A Osteoarthritis of left knee M17.12
[2024-06-10 13:25] VITALS: BMI 34.3
== END 2024-06-10 13:35 | disposition home or self-care (01) ==
PROVIDERS: PCP Internal Medicine; Visit Provider Physician Assistant
DX: S83.242A Other tear of medial meniscus, current injury, left knee, initial encounter (principal); M17.12 Unilateral primary osteoarthritis, left knee
CPT/HCPCS: 99024

== ENCOUNTER → 2024-06-10 13:15 | Outpatient (BNVA) | payer OTHER, SELFPAY | PROVIDERS: PCP Internal Medicine; Visit Provider Physician Assistant | DX: S83.242A Other tear of medial meniscus, current injury, left knee, initial encounter (principal); X58.XXXA Exposure to other specified factors, initial encounter; Y93.9 Activity, unspecified; Y92.9 Unspecified place or not applicable; Y99.9 Unspecified external cause status; M17.12 Unilateral primary osteoarthritis, left knee; M35.3 Polymyalgia rheumatica; Z79.52 Long term (current) use of systemic steroids | CPT/HCPCS: 99212 ==

== ENCOUNTER 2024-06-11 07:20 | Outpatient (AMB) | payer OTHER, SELFPAY ==
[2024-06-11 07:29] VITALS: BP 140/90; PULSE 80; O2SAT 97; BMI 33.1
--- NOTE | 2024-06-11 07:29 | A.OFFVIS_ITS ---
Vital Signs 06/11/24 07:29 Height 5 ft 4 in Weight 193 lb 2 oz BMI 33.1 BP 140/90 H Blood Pressure Location Lt brachial Position Sitting Pulse 80 Pulse Source Pulse Oximeter Pulse Oximetry (%) 97 Oxygen Delivery Method Room Air Intake Visit Reasons: Follow up OK per Dental Receptionist Required: No Accompanied by: Daughter Allergies hydralazine Allergy (Intermediate, Verified 06/11/24 07:49) hypotension Iodinated Contrast Media [IV CONTRAST] Allergy (Intermediate, Verified 06/11/24 07:49) BLISTERED RASH metformin Allergy (Intermediate, Verified 06/11/24 07:49) constipation Medication List - Last Reconciled 06/14/24 by MARIAMA Knott [adult diapers pull-ups As directed] albuterol sulfate 90 mcg/actuation 2 puffs inhalation Q4-6H PRN atorvastatin 80 mg PO DAILY 90 days bisoprolol fumarate 10 mg PO DAILY 90 days blood sugar diagnostic (FreeStyle Lite Strips) test daily blood-glucose meter (FreeStyle Lite Meter kit) test daily candesartan 32 mg PO DAILY duloxetine (Cymbalta) 20 mg PO DAILY 90 days duloxetine 60 mg PO DAILY 90 days ezetimibe 10 mg PO DAILY 90 days fluticasone propion-salmeterol 500-50 mcg/dose (Wixela Inhub) 1 ea PO BID fluticasone propionate 50 mcg/actuation 1 spray intranasal DAILY gabapentin 300 mg PO BID 90 days hydrochlorothiazide 25 mg PO DAILY ipratropium-albuterol 0.5 mg-3 mg(2.5 mg base)/3 mL 3 mL inhalation Q4-6H PRN 30 days lancets (FreeStyle Lancets) test daily lidocaine 4% (Aspercreme (lidocaine)) 1 patch topical DAILY PRN 30 days linaclotide (Linzess) 290 mcg PO QAM pioglitazone 30 mg PO DAILY prednisone mg PO TID prednisone 15 mg (3 x 5 mg) PO DAILY 4 weeks [railing bathtub As directed] riboflavin (vitamin B2) 400 mg PO DAILY 30 days rimegepant (Nurtec ODT) 75 mg PO ONCE PRN 30 days MDD 1 tab semaglutide (Ozempic) 2 mg (0.75 mL) subcut QWEEK 4 weeks vibegron (Gemtesa) 75 mg PO DAILY Do you need a note to return to daycare/school/sports/work: No HPI Comments Details: Right-handed 68-yr-old female presents for neurological evaluation of cognitive difficulties. PMH: cognitive dysfunction, DM, HTN, HLD, PMR, COPD, asthma, ILD. Pt states she has had a previous stroke. Pt is accompanied by her dtr, Seda. Today she is still experiencing speech difficulties and is forgetful of many tasks around the house. She did have hearing eval which demonstrated borderline normal to mild sensorineural hearing loss, and was advised to try hearing aides through a hearing aide service affiliated w/ her insurance company, [employer]. She has a h/o VIRI- no longer using CPAP. VIRI severity unknown. Reports daytime sleepiness, needs to take naps, gasping arousals, snoring. She continues to have headaches but they are sharp onset Left temporal area 1-2X per week, and last about 5sec to 30sec and well managed with Tylenol and ibuprofen. She did not start Nurtec, as she did not feel the headaches were bothersome enough to start a new medication for. She did re-establish care w/ rheumatology for known PMR- was started on Prednisone in hopes of reducing severe aches and pains in her hips, shoulders. She has f/u scheduled already. She is 6 weeks post L knee surgical arthroscopic procedure, refused to go to PT, due to the pain. Initial HPI from 02/26/2024: Pt reports she has had memory issues for at least 12 yrs. 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 She reports she had a lot of increased stress r/t working at [employer], home/life stressors, and increasing health issues- states fibromyalgia (but is referring to her PMR dx), difficulty controlling her HTN (developed in 1979 s/p preeclamsia). She states that she had a full work-up, multiple hospitalizations, and neuro-psych evaluations, and was diagnosed with pseudo-dementia. Thus, stopped working and went on short-term disability for about a year. 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 However, through 2013 to 2018, her cognitive symptoms slowly worsened/progressed to the point where she was forced to retire early. She states that she still feels her cognitive issues are worsening. She feels that she does not understand and speak as well, either in her primary language Slovak or secondary language [place] African. Feels that when many people are speaking, she cannot understand. She does have some progressive hearing loss- has not had an audiology eval yet. She does have VIRI, but is not using her CPAP. She may not be taking all of her supplement medications- not always taking potassium. Is taking Mag citrate- ? dose. Lives with her long-term partner between the [facility] and [place] (usually every summer-fall). Stays with her dtr when in the [place]. Ind w/ ADLs. Does need to take her time. Can forget the stove is on if leaves the kitchen. She manages her own finances. Occasionally may try to pay twice. Notes she needs to adjust to different payment systems between the 2 countries. She has a large home in - has house gis specialist to help. She is more social when she is in the , but does see her former co-workers when in [facility]. Her partner is a musician- so there is often music at home, and dancing, which she likes but recent headaches have made her more photophobic. She was exercising in the gym, but more recently the noise has been too bothersome. She is prone to joint and muscle pains, tends to have balls of tight muscles- has not seen rheumatology in a few yrs. She describes the headaches as: left sided headache for the past 5 months. She had this in the past, but not in the previous 3 yrs, denies usual headaches prior to the age of 50. The pain is pressure, a/w mid-frontal upper forehead swelling (like a little horn ), photophobia, phonophobia, occasionally nausea. The pain is strong for a few minutes, but then lays down with an eye mask. This happens about 3 x's per week- seems to be happening more often. Pt states she takes 2 500mg Ibuprofen . May occasionally take Tylenol. Uses Gabapentin for fibromyalgia pain. 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 Syncope B12 deficiency Postmenopausal Diabetes mellitus Dyslipidemia COPD (chronic obstructive pulmonary disease) Essential hypertension Surgical History History of tonsillectomy Hx of cardiac catheterization History of colonoscopy History of total abdominal hysterectomy History of bilateral breast reduction surgery History of abdominoplasty Family History Father Hypertension Mother Hypertension Cancer Maternal Grandmother Stroke Social History Household Members: Family Housing: Apartment Alcohol intake: never Patient Tobacco Use Status: Former Tobacco user e-Cigarette/Vaping Use: Never Used Second Hand Smoke Exposure: No service: No Current occupational status: retired Cognitive needs: No Hearing needs: No Vision needs: No Review of Systems Neuro Reports as per HPI Physical Exam Vital Signs: Last Vital Signs Pulse 80 06/11/24 07:29 BP 140/90 H 06/11/24 07:29 Pulse Ox 97 06/11/24 07:29 Oxygen Delivery Method Room Air 06/11/24 07:29 BMI result Body Mass Index 33.1 Const General: cooperative, comfortable and no acute distress Nutritional Appearance: overweight Orientation/consciousness: patient oriented x3 HEENT Other: Mallampati grade IV Face and sinus: Yes normal facial exam and Yes face symmetric Eyes Pupils: Equal, round and reactive pupils present Neck Neck: Yes full ROM Resp Effort & Inspection: normal respiratory effort and able to speak in complete sentences Neuro Other: Speech is clear, fluent. Occasional difficulty following more complex conversation, however follows other complex conversations well. General: patient oriented x3 Cranial nerves: Yes CN's II-XII intact bilaterally, Yes Facial sensation intact/muscles of mastication intact, Yes Equal, round and reactive pupils present, Yes Normal accommodation reflex present, Yes Normal facial strength present, Yes Midline tongue present, Yes Symmetric palate elevation present, Yes Ability to bilaterally rotate head present and Yes Ability to bilaterally elevate shoulders present Motor exam (neuro): 5/5 motor strength present throughout Deep tendon reflexes (DTR's): Right triceps reflex intensity grade: 2+, Left triceps reflex intensity grade: 2+, Rt Biceps (C5, C6): 2+, Left biceps reflex intensity grade: 2+, Right brachioradialis reflex intensity grade: 2+, Left brachioradialis reflex intensity grade: 2+, Right patellar reflex intensity grade: 2+ and Left patellar reflex intensity grade: 2+ Coordination: [id number] test normal Quality Reporting (2019) Adult ([facility] ) Smoking risk assessment performed?: Yes Patient Tobacco Use Status: Former To bacco user Results Reviewed Results Reviewed: 02/26/24 06/04/24 10:54 10:46 WBC 6.5 12.9 H RBC 3.70 L 3.26 L Hgb 11.9 L 10.3 L D Hct 37.2 32.0 L D MCV 100.5 H 98.2 H MCH 32.2 31.6 MCHC 32.0 32.2 ESR 23 H 66 H Sodium 138 136 Potassium 4.5 4.6 Chloride 107 100 Carbon Dioxide 22 32 H Anion Gap 14 9 L Creatinine 0.84 1.14 Estimated GFR > 60 47 Random Glucose 91 107 Hemoglobin A1c % 5.6 Calcium 9.8 9.4 D Magnesium 2.2 Iron 62 TIBC 356 % Saturation 17 Unsat Iron Binding 294 Ferritin 67 Total Bilirubin 0.3 AST 30 ALT 27 Alkaline Phosphatase 90 Total Creatine Kinase 200 H C-Reactive Protein 7.39 H C-React Prot High Sens 3.6 H Total Protein 7.3 6.7 Albumin 3.8 3.4 L Triglycerides 66 Cholesterol 218 H LDL Cholesterol, Calc 122 H HDL Cholesterol 83 Vitamin B12 649 Methylmalonic Acid 200 25-OH Vitamin D Total 34 Folate 9.3 Homocysteine 10.1 TSH 1.32 Assessment & Plan Assessment & Plan (1) Migraine without aura: Code(s): G43.009 - Migraine without aura, not intractable, without status migrainosus Category: Medical (2) Cognitive dysfunction: Code(s): F09 - Unspecified mental disorder due to known physiological condition Category: Medical (3) Hard of hearing: Comment: borderline normal to mild bilateral Code(s): H91.90 - Unspecified hearing loss, unspecified ear Category: Medical Plan For cognitive difficulties: Pt is advised to undergo: Reviewed labs- Feb labs- notable for mild anemia, mildly elevated ESR. F/u labs show elevated ESR/CRP- likely r/t PMR dx and lelevated WBD- liekly d/t prednisone tx. As ordered, Brain MRI w/wo to assess for intracranial etiologies of cognitive difficulties in setting of progressive cognitive difficulties, headache onset after 50 yo, and polymyalgia rheumatica. Follow-up neuro-psych evaluation. 02/26/24- MMSE 26/30w/ very good clock drawing. Trial hearing aides. F/u w/ rheumatology as scheduled. HST to assess status of sleep apnea. She would like to leave for [place] on the Jun, and return in Sep 2024 though this is not decided. ? For migraine w/o aura prevention: Continue Riboflavin 400mg qam. Continue Mag citrate- max 400-500mg qhs. Continue Candesartan- used for HTN tx. ? For acute migraine w/o aura tx: Sparing use of Ibuprofen dose to < 400mg q 6 hrs- but use sparingly d/t HTN/DM dx. May hold Nurtec ODT 75mg qd prn (max 1 tab per day)- pt states headaches not bothersome enough to try. However, if renal function worsens, will revisit Nurtec. Acute tx contraindications: All triptans and DHE d/t HTN, HLD, h/o stroke. ? f/u upon review of above and in 6 months or sooner prn. Pt seen by Chanel JONES in coordination w/ myself MARIAMA Knott- , I agree with the above documentation and plan. Orders: Orders RT home sleep study 06/11/24 G47.19 - Other hypersomnia, G47.33 - Obstructive sleep apnea (adult) (pediatric), R06.83 - Snoring Medications: Discontinued oxycodone Partial Fill upon patient request. Discontinued Reason: Patient Completed Course 5 mg PO Q6H PRN 20 tabs 0RF pain Coding Level of Care Code Est Pt Level 4 (92611) Complex EM visit Add On G2211 Diagnoses Migraine without aura G43.009 Cognitive dysfunction F09 Hard of hearing H91.90
== END 2024-06-11 08:46 | disposition home or self-care (01) ==
PROVIDERS: PCP Internal Medicine; Visit Provider Nurse Practitioner Family
DX: G43.009 Migraine without aura, not intractable, without status migrainosus (principal); R41.89 Other symptoms and signs involving cognitive functions and awareness; H91.93 Unspecified hearing loss, bilateral
CPT/HCPCS: 99214; G2211

== ENCOUNTER → 2024-06-11 07:20 | Outpatient (BNVA) | payer OTHER, SELFPAY | PROVIDERS: PCP Internal Medicine; Visit Provider Nurse Practitioner Family | DX: G43.009 Migraine without aura, not intractable, without status migrainosus (principal); H91.90 Unspecified hearing loss, unspecified ear; G47.19 Other hypersomnia; G47.33 Obstructive sleep apnea (adult) (pediatric); R06.83 Snoring; F09 Unspecified mental disorder due to known physiological condition; Z86.73 Personal history of transient ischemic attack (TIA), and cerebral infarction without residual deficits | CPT/HCPCS: 99212 ==

== ENCOUNTER 2024-06-22 13:57 | Outpatient (AMB) | payer OTHER, SELFPAY ==
--- NOTE | 2024-06-21 17:42 | MHC.OFFVIS ---
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 Accompanied by: Self / Same As Patient Allergies hydralazine Allergy (Intermediate, Verified 06/22/24 14:05) hypotension Iodinated Contrast Media [IV CONTRAST] Allergy (Intermediate, Verified 06/22/24 14:05) BLISTERED RASH metformin Allergy (Intermediate, Verified 06/22/24 14:05) constipation Medication List - Last Reconciled 06/22/24 by García Morales MD [adult pull-ups As directed] albuterol sulfate 90 mcg/actuation 2 puffs inhalation Q4-6H PRN atorvastatin 80 mg PO DAILY 90 days bisoprolol fumarate 10 mg PO DAILY 90 days blood pressure test kit-large As directed blood sugar diagnostic (FreeStyle Lite Strips) test daily blood-glucose meter (FreeStyle Lite Meter kit) test daily candesartan 32 mg PO DAILY duloxetine (Cymbalta) 20 mg PO DAILY 90 days duloxetine 60 mg PO DAILY 90 days ezetimibe 10 mg PO DAILY 90 days fluticasone propion-salmeterol 500-50 mcg/dose (Wixela Inhub) 1 ea PO BID fluticasone propionate 50 mcg/actuation 1 spray intranasal DAILY gabapentin 300 mg PO BID 90 days hydrochlorothiazide 25 mg PO DAILY ipratropium-albuterol 0.5 mg-3 mg(2.5 mg base)/3 mL 3 mL inhalation Q4-6H PRN 30 days lancets (FreeStyle Lancets) test daily lidocaine 4% (Aspercreme (lidocaine)) 1 patch topical DAILY PRN 30 days linaclotide (Linzess) 290 mcg PO QAM nebulizers As directed pioglitazone 30 mg PO DAILY prednisone mg PO TID prednisone 15 mg (3 x 5 mg) PO DAILY 4 weeks [railing bathtub As directed] riboflavin (vitamin B2) 400 mg PO DAILY 30 days rimegepant (Nurtec ODT) 75 mg PO ONCE PRN 30 days MDD 1 tab semaglutide (Ozempic) 2 mg (0.75 mL) subcut QWEEK 4 weeks vibegron (Gemtesa) 75 mg PO DAILY walker (Ultra-Light Rollator misc) As directed HPI Comments Details: 06/22/24-- FU OAB. The patient states that the pharmacy did not receive the medication. She is bothered by the persistent urine leakage. She wears a pad. She goes frequently to the bathroom. I have discussed renal ultrasound results. I have recent the Gemtesa to the pharmacy. I explained to call if she still can not receive the medication may be it is an insurance issue. The patient also states she will be going to the [facility] for the winter months. Renal US--06/08/24--Negative exam. Small cyst small simple cyst right kidney. Review of chart: 06/04/24--Mini is a 68-year-old female who is here with complaints of urinary incontinence. She states that she will get an urge and does not make it to the bathroom in time. She is wearing a all the time now. She also leaks with coughing or sneezing. She denies any urinary tract infections. Comorbidity diabetes. Urinalysis negative. I will trial Gemtesa 75 mg daily. Kidney bladder ultrasound ordered. She may benefit from urodynamics future, pending improvement symptoms.[place] leaving on June [place]. 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 Syncope B12 deficiency Postmenopausal Diabetes mellitus Dyslipidemia COPD (chronic obstructive pulmonary disease) Essential hypertension Surgical History History of tonsillectomy Hx of cardiac catheterization History of colonoscopy History of total abdominal hysterectomy History of bilateral breast reduction surgery History of abdominoplasty Family History Father Hypertension Mother Hypertension Cancer Maternal Grandmother Stroke Social History Household Members: Family Housing: Apartment Alcohol intake: never Patient Tobacco Use Status: Former Tobacco user e-Cigarette/Vaping Use: Never Used Second Hand Smoke Exposure: No service: No Current occupational status: retired Cognitive needs: No Hearing needs: No Vision needs: No Review of Systems Const All systems reviewed & are unremarkable except as noted in HPI and below Reports no additional complaints Eyes Reports no additional complaints ENT Reports no additional complaints Card Reports no additional complaints Resp Reports no additional complaints GI Reports no additional complaints Reports as per HPI Musc Reports no additional complaints Skin/Breast Reports system reviewed and no additional complaints, except as documented Neuro Reports no additional complaints Psych Reports no additional complaints Endo Reports no additional complaints Keith/Lymph Reports no additional complaints Aller/Immun Reports no additional complaints Office Procedures Post Void Residual Post Residual Void Post Void Residual (PVR): 15 [id number] Void Residual by ultrasound Results AMB Urinalysis, Automated UA Leukoctes 0 Ugo/uL Last Edit by Leahta Small [facility] on 06/22/24 14:15 UA Nitrite Negative Last Edit by Leatha Small A on 06/22/24 14:15 UA Urobilinogen 0.2 mg/dL Last Edit by Leatha Small [facility] on 06/22/24 14:15 UA Protein 0 mg/dL Last Edit by Leatha Small A on 06/22/24 14:15 UA pH 5.5 Last Edit by Leatha Small A on 06/22/24 14:15 UA Blood 0 Aneudy/uL Last Edit by Leatha Small A on 06/22/24 14:15 UA Specific Slemp 1.025 Last Edit by Leatha Small A on 06/22/24 14:15 UA Ketone Negative Last Edit by Leatha Small [facility] on 06/22/24 14:15 UA Bilirubin 0 mg/dL Last Edit by Leatha Small A on 06/22/24 14:15 UA Glucose 0 mg/dL Last Edit by Leatha Small [facility] on 06/22/24 14:15 Quality Reporting (2019) Adult ([facility] 138/09/12/68) Smoking risk assessment performed?: Yes Patient Tobacco Use Status: Former Tobacco user Results Reviewed Results Reviewed: Laboratory Last Values Urine pH (Auto) 5.5 06/22/24 14:06 Specific Slemp (Auto) 1.025 06/22/24 14:06 Urine Protein (Auto) 0 mg/dL 06/22/24 14:06 Glucose (UA)(Auto) 0 mg/dL 06/22/24 14:06 Urine Ketones (Auto) Negative 06/22/24 14:06 Urine Blood (Auto) 0 Aneudy/uL 06/22/24 14:06 Urine Nitrite (Auto) Negative 06/22/24 14:06 Urine Bilirubin (Auto) 0 mg/dL 06/22/24 14:06 Urine Urobilinogen (Auto) 0.2 mg/dL 06/22/24 14:06 Leukocyte Esterase (Auto) 0 Ugo/uL 06/22/24 14:06 Date of Service: 06/08/24 US RETROPERITONEAL COMPLETE (RENAL) CLINICAL INFORMATION: Unspecified urinary incontinence. COMPARISON: Renal ultrasound 09/19/2018. X-ray abdomen KUB 09/08/2018. CT abdomen and pelvis 03/27/2017. Ultrasound abdomen with elastography 01/03/2017. TECHNIQUE: Real-time imaging of the kidneys and bladder. FINDINGS: RIGHT KIDNEY: 9.4 x 4.5 x 4.2 cm (SAG x AP x TRV). The kidney is normal in size, contour, and echogenicity. Renal cortical thickness is normal. No renal calculi or hydronephrosis. A benign mid renal cortical 0.9 cm Bosniak class I renal cyst is noted which requires no additional imaging or follow up. No solid renal masses are seen. LEFT KIDNEY: 8.4 x 4.5 x 4.1 cm (SAG x AP x TRV). The kidney is normal in size, contour, and echogenicity. Renal cortical thickness is normal. No calculi or focal parenchymal lesions. No hydronephrosis. BLADDER: Partially distended. Bilateral ureteral jets are demonstrated. Prevoid bladder volume is 36.2 mL. Postvoid bladder volume is 3.9 mL. Additional findings: Incidental note is made of a complex 2.1 cm cyst with septation in the right lobe of the liver. IMPRESSION: Negative exam. Assessment & Plan Assessment & Plan (1) Urinary incontinence: Code(s): R32 - Unspecified urinary incontinence Category: Medical (2) Urinary urgency: Code(s): R39.15 - Urgency of urination Category: Medical (3) Mixed stress and urge urinary incontinence: Code(s): N39.46 - Mixed incontinence Category: Medical Plan Gemtesa 75 mg daily. She may benefit from urodynamics future, pending improvement symptoms. Orders: Orders AMB Urinalysis Automated Today Z13.9 - Encounter for screening, unspecified AMB Post Void Residual by ultrasound Today R32 - Unspecified urinary incontinence Medications: Refilled vibegron (Gemtesa) 75 mg PO DAILY 90 tabs 2RF Patient Instructions: The patient had an opportunity to ask questions regarding treatment plan. The patient expressed understanding and agreement with the above treatment plan. The patient is aware they should contact our office by phone for worsening of their current condition or the appearance of new symptoms. Compliance is encouraged with any medications and followup testing that is ordered. It is a privilege to be allowed the opportunity to participate in the urologic care of your patient. If you have any questions or concerns regarding treatment for the above conditions please do not hesitate to contact me. The office telephone contact is [phone]. This note is constructed in part using voice recognition software. While every effort has been made to ensure accuracy demurrage clerk errors may have been included. Yours sincerely, García Morales MD Coding Level of Care Code Est Pt Level 4 (69606) Diagnoses Urinary incontinence R32 Urinary urgency R39.15 Mixed stress and urge urinary incontinence N39.46 CPT Codes Post Residual Void - PVR CPT Code: 54945-Qxnf Void Residual by ultrasound ([id number])
== END 2024-06-22 14:33 | disposition home or self-care (01) ==
LOC: HO.HUSH 13:57
PROVIDERS: PCP Internal Medicine; Visit Provider Urology
DX: N39.46 Mixed incontinence (principal); Z13.9 Encounter for screening, unspecified
CPT/HCPCS: 99214

== ENCOUNTER → 2024-06-22 13:57 | Outpatient (BNVA) | payer OTHER, SELFPAY | PROVIDERS: PCP Internal Medicine; Visit Provider Urology | DX: N39.46 Mixed incontinence (principal) | CPT/HCPCS: 51798; 81003; 99212 ==

== ENCOUNTER 2025-01-08 12:52 | Outpatient (REF) | payer OTHER, SELFPAY ==
--- NOTE | ~2025-01-08 | CT_ITS ---
EXAMINATION: CT CHEST WITHOUT CONTRAST CLINICAL INFORMATION: Solitary pulmonary nodule. Interstitial pulmonary disease, unspecified. COMPARISON: April 01, 2024. TECHNIQUE: Multidetector volumetric CT imaging of the chest was done. Axial MIP volume rendering provided. Sagittal and coronal reformatted images were obtained. This CT examination was performed using dose optimization techniques as appropriate, variously including the following: *Automated exposure control *Adjustment of mA and/or kV according to patient size (this includes techniques or standardized protocols for targeted exams where dose is matched to indication/reason for exam; i.e. extremities or head) *Use of iterative reconstruction technique. DLP: 296 mg centimeter. FINDINGS: MANAGER TRAINEE: Patient's large body habitus. No hyperinflation. Cardiomediastinal silhouette size is normal. Degenerative changes in the acromioclavicular joints. Upper extremities at the both sides of head. LUNGS: 1 mm noncalcified pulmonary nodule posterior segment right upper lung lobe. 4 mm noncalcified pulmonary nodule in the underneath surface of the minor fissure right middle lung lobe. Intralobular intraseptal thickening in the periphery of the lower lung lobes, right greater than the left side and to a lesser extent right middle lung lobe. No gross bronchiectasis or honeycombing. No gross consolidation. MEDIASTINUM: No lymphadenopathy. Calcified plaques in the thoracic aortic arch the origin of the left subclavian artery descending thoracic aorta, aortic valve and the coronary arteries. No aneurysm, thoracic aorta. No gross pericardial effusion. No pneumomediastinum. No hemomediastinum. No hemopericardium. The included thyroid gland demonstrates no enlargement. CORONARY ARTERY CALCIFICATION: Calcified plaques. PLEURA: No pleural effusion. No pneumothorax. No calcified pleural plaques. AXILLA: No lymphadenopathy. UPPER ABDOMEN: Limited by motion artifact. Gallbladder is contracted. Calcified plaques in the abdominal aorta wall and the origin of the mesenteric arteries. OSSEOUS STRUCTURES: Multilevel cervical thoracic and upper lumbar spondylosis. No acute fracture or gross listhesis. No lytic or blastic lesions. No acute rib fracture. Sternum is intact. Included clavicles are intact. Degenerative changes in the acromioclavicular joints and glenohumeral joints. Dystrophic calcification the fat planes of the right lateral chest wall. CT/CT chest wo IV con IMPRESSION: Overall stable since prior examination. No acute airspace disease. Fleischner guidelines were followed. Electronically signed by: Lewis Ireland MD 01/08/2025 01:33 PM EDT RP
== END 2025-01-08 12:53 | disposition home or self-care (01) ==
LOC: HO.CT 12:52
PROVIDERS: PCP Student in an Organized Health Care Education/Training Program; Visit Provider Internal Medicine Pulmonary Disease
DX: R91.1 Solitary pulmonary nodule (principal)
CPT/HCPCS: 71250

== ENCOUNTER → 2025-01-08 12:54 | Outpatient (BNV) | payer OTHER, SELFPAY | PROVIDERS: PCP Student in an Organized Health Care Education/Training Program; Visit Provider Radiology Diagnostic Radiology | DX: J84.9 Interstitial pulmonary disease, unspecified (principal) | CPT/HCPCS: 71250 ==

== ENCOUNTER → 2025-01-12 15:50 | Outpatient (BNV) | payer OTHER, SELFPAY | PROVIDERS: PCP Internal Medicine; Visit Provider Radiology Diagnostic Radiology | DX: R51.9 Headache, unspecified (principal) | CPT/HCPCS: 70553 ==

== ENCOUNTER 2025-01-12 15:52 | Outpatient (REF) | payer OTHER, SELFPAY ==
--- NOTE | ~2025-01-12 | MR_ITS ---
EXAMINATION: MR BRAIN WITHOUT THEN WITH IV CONTRAST HISTORY: R51.9 - Headache, unspecified TECHNIQUE: Sagittal T1, and axial T1, FLAIR, T2, gradient echo, and diffusion weighted MR images of the brain were obtained. Subsequently, axial, and coronal T1-weighted images were obtained after the administration of intravenous gadolinium. 9 mL Gadavist was administered. COMPARISON: Comparison is made with the prior examination dated 02/07/2019. FINDINGS: The brain parenchyma is unremarkable, demonstrating normal kline/white differentiation. No foci of abnormal signal intensity are identified. The ventricular system is normal in size and configuration. There is no mass effect or midline shift. No intra or extra-axial fluid collections are identified. There are no foci of restricted diffusion. There is no abnormal contrast enhancement. Again seen is an empty sella. The cerebellar tonsils are normally located. Normal vascular flow voids are noted in the basilar and carotid arteries. The visualized paranasal sinuses are clear. MR/MR head/brain wo/w con IMPRESSION: Unremarkable MRI of the brain without and with contrast. Electronically signed by: Ramos Frank MD 01/13/2025 07:50 AM EDT
[2025-01-12] MEDS: gadobutroL 10 ML VIAL IVPUSH (17:42)
== END 2025-01-12 15:53 | disposition home or self-care (01) ==
LOC: HO.MRI 15:52
PROVIDERS: PCP Internal Medicine; Visit Provider Nurse Practitioner Family
DX: R51.9 Headache, unspecified (principal); I10 Essential (primary) hypertension; M35.3 Polymyalgia rheumatica; E11.65 Type 2 diabetes mellitus with hyperglycemia
CPT/HCPCS: 70553; A9585

== ENCOUNTER 2025-01-14 13:03 | Outpatient (AMB) | payer OTHER, SELFPAY ==
[2025-01-14 13:08] VITALS: BP 100/62; PULSE 67; O2SAT 93; BMI 36.0
--- NOTE | 2025-01-14 13:08 | MHC.OFFVIS ---
Vital Signs 01/14/25 13:08 Height 5 ft 3 in Weight 203 lb BMI 36.0 BP 100/62 Blood Pressure Location Lt brachial Position Sitting Pulse 67 Pulse Source Pulse Oximeter Pulse Oximetry (%) 93 Oxygen Delivery Method Room Air Intake Visit Reasons: pulmonary nodule Allergies hydralazine Allergy (Intermediate, Verified 01/14/25 13:15) hypotension Iodinated Contrast Media (IV CONTRAST) Allergy (Intermediate, Verified 01/14/25 13:15) BLISTERED RASH metformin Allergy (Intermediate, Verified 01/14/25 13:15) constipation HPI HPI pulmonary nodule: Details: 69-year-old lady, lifetime nonsmoker, followed for mild asthma/COPD overlap syndrome and pulmonary nodules. After the last office visit patient had a follow-up CT chest that showed stable pulmonary nodules. Her asthma symptoms are well controlled on Advair, she does have allergic cough component that normally is controlled on Singulair, however she has ran out of it and has redeveloped her cough symptoms. 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 Syncope B12 deficiency Postmenopausal Diabetes mellitus Dyslipidemia COPD (chronic obstructive pulmonary disease) Essential hypertension Surgical History History of tonsillectomy Hx of cardiac catheterization History of colonoscopy History of total abdominal hysterectomy History of bilateral breast reduction surgery History of abdominoplasty Family History Father Hypertension Mother Hypertension Cancer Maternal Grandmother Stroke Social History Household Members: Family Housing: Apartment Alcohol intake: never Patient Tobacco Use Status: Former Tobacco user e-Cigarette/Vaping Use: Never Used Second Hand Smoke Exposure: No service: No Current occupational status: retired Cognitive needs: No Hearing needs: No Vision needs: No Review of Systems Const Denies daytime sleepiness, Denies excessive sweating, Denies fatigue, Denies fever(s), Denies lethargy, Denies malaise, Denies night sweats, Denies snoring and Denies weight loss Eyes Denies blurry vision and Denies itchy eyes ENT Denies nasal congestion, Denies post nasal drip, Denies sinus pain, Denies sinus pressure and Denies other ( Thrush) Card Denies chest pain, Denies pedal edema, Denies dyspnea, Denies orthopnea and Denies paroxysmal nocturnal dyspnea Resp Reports cough, Denies hemoptysis, Denies excessive phlegm production, Denies dyspnea, Denies snoring and Denies wheezing GI Denies abdominal pain and Denies heartburn Musc Denies myalgias, Denies arthralgias and Denies joint swelling Skin/Breast Denies rash Neuro Denies memory loss and Denies seizure-like activity Psych Denies abnormal sleep pattern, Denies anxiety and Denies memory loss Endo Denies excessive sweating, Denies fatigue and Denies heat intolerance Keith/Lymph Denies easy bruising Aller/Immun Denies itchy eyes, Denies seasonal rhinorrhea and Denies wheezing Physical Exam Vital Signs: Last Vital Signs Pulse 67 01/14/25 13:08 BP 100/62 01/14/25 13:08 Pulse Ox 93 01/14/25 13:08 Oxygen Delivery Method Room Air 01/14/25 13:08 BMI result Body Mass Index 36.0 Const General: no acute distress and alert Nutritional Appearance: obese Orientation/consciousness: Other orientation findings ( oriented) HEENT Head: Yes atraumatic Eyes General: appearance normal, both eyes and all related structures Sclerae: sclerae normal EOM: EOMs intact bilaterally Neck Neck: Yes supple Lymphatic: no lymphadenopathy noted Resp Effort & Inspection: normal respiratory effort and no use of accessory muscles Auscultation: clear to auscultation bilaterally Cardio Rate: regular rate Rhythm: regular rhythm Heart sounds: no gallops, no murmurs and no rubs Skin General skin exam: other ( warm) Extrem General: No clubbing, No cyanosis and No edema Assessment & Plan Assessment & Plan (1) Asthma-COPD overlap syndrome: Code(s): J44.89 - Other specified chronic obstructive pulmonary disease Category: Medical Plan: Well controlled on Wixela, duo nebs, and albuterol MDI. Continue current regimen. (2) Pulmonary nodule: Code(s): R91.1 - Solitary pulmonary nodule Category: Medical Plan: Results of follow-up CT chest reviewed, stable pulmonary nodule, will repeat CT chest in 12 months. (3) Environmental allergies: Code(s): Z91.09 - Other allergy status, other than to drugs and biological substances Category: Medical Plan: Suboptimal control off Singulair. Restart Singulair. Continue Flonase. Orders: Orders CT chest wo IV con 01/08/26 R91.1 - Solitary pulmonary nodule Medications: New montelukast 10 mg PO DAILY 90 tabs 4RF prednisone 40 mg (2 x 20 mg) PO DAILY 6 tabs 0RF Coding Level of Care Code Est Pt Level 4 (46115) Complex EM visit Add On G2211 Diagnoses Asthma-COPD overlap syndrome J44.89 Pulmonary nodule R91.1 Environmental allergies Z91.09
== END 2025-01-14 13:48 | disposition home or self-care (01) ==
LOC: HO.HPS 13:04
PROVIDERS: PCP Internal Medicine; Visit Provider Internal Medicine Pulmonary Disease
DX: J44.89 Other specified chronic obstructive pulmonary disease (principal); R91.1 Solitary pulmonary nodule; Z91.09 Other allergy status, other than to drugs and biological substances
CPT/HCPCS: 99214; G2211

== ENCOUNTER → 2025-01-14 13:03 | Outpatient (BNVA) | payer OTHER, SELFPAY | PROVIDERS: PCP Internal Medicine; Visit Provider Internal Medicine Pulmonary Disease | DX: R91.1 Solitary pulmonary nodule (principal); J44.89 Other specified chronic obstructive pulmonary disease; Z91.09 Other allergy status, other than to drugs and biological substances | CPT/HCPCS: 99212 ==

== ENCOUNTER 2025-01-30 10:39 | Outpatient (AMB) | payer OTHER, SELFPAY ==
--- NOTE | 2025-01-30 11:15 | AM.OFFWIN_ITS ---
Intake Vital Signs 01/30/25 11:16 Height 5 ft 3 in Weight 203 lb BMI 36.0 BP 110/60 Blood Pressure Location Rt brachial Position Sitting Respiration 16 Pulse 65 Pulse Source Pulse Oximeter Temp 98.6 F Temp Source Oral Pulse Oximetry (%) 99 Oxygen Delivery Method Room Air Intake Visit Reasons: EP ringing in head Intake Note: Pt is here today c/o ringing in head x4days denies any trauma Patient Tobacco Use Status: Former Tobacco user Allergies hydralazine Allergy (Intermediate, Verified 02/16/25 08:06) hypotension Iodinated Contrast Media (IV CONTRAST) Allergy (Intermediate, Verified 02/16/25 08:06) BLISTERED RASH metformin Allergy (Intermediate, Verified 02/16/25 08:06) constipation HPI EP ringing in head HPI Details Patient is a 69-year-old female with history of migraines and dementia, who comes to the walk-in clinic complaining of tinnitus for the last few days. She does report that she has a history of anemia, and had similar ear ringing when she was diagnosed with this. She denies fall or other trauma, ear pain, hearing loss, headache, dizziness or vertigo, near-syncope, palpitations, changes in visions, chest pain, weakness, or other significant associated symptoms. 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 Syncope B12 deficiency Postmenopausal Diabetes mellitus Dyslipidemia COPD (chronic obstructive pulmonary disease) Essential hypertension Surgical History History of tonsillectomy Hx of cardiac catheterization History of colonoscopy History of total abdominal hysterectomy History of bilateral breast reduction surgery History of abdominoplasty Family History Father Hypertension Mother Hypertension Cancer Maternal Grandmother Stroke Social History Household Members: Family Housing: Apartment Alcohol intake: never Patient Tobacco Use Status: Former Tobacco user e-Cigarette/Vaping Use: Never Used Second Hand Smoke Exposure: No service: No Current occupational status: retired Cognitive needs: No Hearing needs: No Vision needs: No Review of Systems Const All systems reviewed & are unremarkable except as noted in HPI and below Neuro Denies Abnormal speech present Physical Exam Vital Signs: Last Vital Signs Temp 98.6 F 01/30/25 11:16 Pulse 65 01/30/25 11:16 Resp 16 01/30/25 11:16 BP 110/60 01/30/25 11:16 Pulse Ox 99 01/30/25 11:16 Oxygen Delivery Method Room Air 01/30/25 11:16 BMI result Body Mass Index 36.0 Const General: cooperative, healthy appearing, comfortable, no acute distress, alert, awake, Physically active and well groomed; No anxious, diaphoretic, ill appearing, intoxicated appearing, poor hygiene or tired appearing Nutritional Appearance: average body habitus Orientation/consciousness: patient oriented x3 Limitations: no limitations HEENT Head: Yes normal to inspection, Yes normocephalic and Yes atraumatic Ears: hearing grossly normal bilaterally, external ears normal, TM's normal bilaterally and EAC's normal General nose exam: Normal external nose present, Normal nares present, No nasal polyps present, Normal nasal mucous membranes and turbinates present, Normal septum present and No nasal discharge present Face and sinus: Yes normal facial exam, Yes sinuses nontender and Yes face symmetric Mouth: Normal oral and palatal mucosa present, lip normal and tongue normal Throat: Yes posterior oropharynx normal, No peritonsillar mass, No postnasal drainage, No uvular edema and No cobblestoning Eyes General: appearance normal, both eyes and all related structures Pupils: Equal, round and reactive pupils present Resp Effort & Inspection: normal respiratory effort Cardio Rate: regular rate Skin Other: Good color, warm and dry Neuro General: patient oriented x3, gait normal, tone normal, moves all extremities, no focal motor deficits and CN's II-XI intact bilaterally Cranial nerves: Yes Equal, round and reactive pupils present and Yes Bilaterally intact EOM present Cognition (Neuro): normal cognition Speech: No Abnormal speech present Motor exam (neuro): 5/5 motor strength present throughout Romberg Test: Negative Psych Appearance: grossly normal Mental Status: mental status grossly normal Speech and movement: Normal speech and movement present Affect: normal affect Attitude: cooperative Thought process: Normal thought process present Insight: Good insight present (Psych) Judgement: Good judgement present (Psych) Assessment & Plan Assessment & Plan (1) Tinnitus: Code(s): H93.19 - Tinnitus, unspecified ear Qualifiers: Laterality: unspecified laterality Qualified Code(s): H93.19 - Tinnitus, unspecified ear Plan: Patient is a 69-year-old female comes to the walk-in clinic complaining of a few days of tinnitus, which she reports is similar to when she was anemic in the past. She has no neuro deficits and cranial nerves are intact bilaterally. Her blood pressure is normotensive, and she has no orthostatic changes. No clinical evidence of CVA, seizure or hearing loss or infection. We will order CBC, vitamin B12 and folate today, and she can follow up with this with primary care provider Dr Anderson. She also has neurologist appointment upcoming. If symptoms worsen, she should consider going to the emergency department for evaluation. Orders: Orders Complete Blood Count Auto Diff 01/30/25 E53.8 - Deficiency of other specified B group vitamins Vitamin B12 and Folate 01/30/25 E53.8 - Deficiency of other specified B group vitamins Coding Level of Care Code Est Pt Level 4 (25251) Diagnoses Tinnitus, unspecified laterality H93.19 Laterality: unspecified laterality
[2025-01-30 11:16] VITALS: BP 110/60; PULSE 65; RESP 16; TEMP 37; O2SAT 99; BMI 36.0
== END 2025-01-30 12:10 | disposition home or self-care (01) ==
PROVIDERS: PCP Internal Medicine; Visit Provider Physician Assistant Medical
DX: H93.19 Tinnitus, unspecified ear (principal)

== ENCOUNTER 2025-01-30 10:39 | Outpatient (REF) | payer OTHER, SELFPAY ==
[2025-01-30 13:41] LABS: MANUAL DIFF FLAG NO
[2025-01-30 13:46] LABS: Hematocrit 37.7 % (37.0-47.0); Hemoglobin 12.2 g/dl (12.0-16.0); Imm Gran Abs Auto 0.02 X10*3/uL (0.00-0.03); Imm Gran Pct Auto 0.4 % (0.0-0.4); Lymphocytes Absolute Auto 1.8 X10*3/uL (1.2-4.9); Mean Corpuscular HGB Conc 32.4 g/dl (31.0-35.0); Mean Corpuscular Hemoglobin 31.4 pg (27.0-33.0); Mean Corpuscular Volume 97.2 fL (80.0-98.0); NRBC Abs Auto 0.000 X10*3/uL (0.0-0.012); NRBC Pct Auto 0.0 /100WBC (0.0-0.2); Platelet Count 255 X10*3/uL (160-400); Red Blood Count 3.88 X10*6/uL (4.20-5.50); White Blood Count 5.4 X10*3/uL (4.8-10.8)
[2025-01-30 14:35] LABS: Folate 10.5 ng/mL (> or = 4.0); Vitamin B12 1433 pg/mL (200-900)
== END 2025-01-30 10:40 | disposition home or self-care (01) ==
LOC: HO.HMGCLDS 10:39
PROVIDERS: PCP Internal Medicine; Visit Provider Physician Assistant Medical
DX: E53.8 Deficiency of other specified B group vitamins (principal)
CPT/HCPCS: 36415; 82607; 82746; 85025; 99212

== ENCOUNTER 2025-02-16 07:48 | Outpatient (AMB) | payer OTHER, SELFPAY ==
[2025-02-16 08:00] VITALS: BP 120/70; PULSE 72; O2SAT 94; BMI 35.8
--- NOTE | 2025-02-16 08:00 | A.OFFVIS_ITS ---
Vital Signs 02/16/25 08:00 Height 5 ft 3 in Weight 202 lb 4 oz BMI 35.8 BP 120/70 Blood Pressure Location Lt brachial Position Sitting Pulse 72 Pulse Source Pulse Oximeter Pulse Oximetry (%) 94 Oxygen Delivery Method Room Air Intake Visit Reasons: Follow Up 6mo Intake Note: Patient presents 6 month follow up for cognitive/migraines. NO-showed HST 10/08. Patient had MRI in [facility] with cyst on frontal lobe. Patient would like her MRI results from here, states she never got them. 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 Accompanied by: Daughter Allergies hydralazine Allergy (Intermediate, Verified 02/16/25 08:06) hypotension Iodinated Contrast Media (IV CONTRAST) Allergy (Intermediate, Verified 02/16/25 08:06) BLISTERED RASH metformin Allergy (Intermediate, Verified 02/16/25 08:06) constipation Medication List - Last Reconciled 02/16/25 by MARIAMA Knott [adult pull-ups As directed] albuterol sulfate 90 mcg/actuation 2 puffs inhalation Q4-6H PRN atorvastatin 80 mg PO DAILY 90 days bisoprolol fumarate 10 mg PO DAILY 90 days blood pressure test kit-large As directed blood sugar diagnostic (FreeStyle Lite Strips) test daily blood-glucose meter (FreeStyle Lite Meter kit) test daily candesartan 32 mg PO DAILY cyanocobalamin (vitamin B-12) 1,000 mcg IM QMONTH duloxetine 60 mg PO DAILY 90 days duloxetine (Cymbalta) 20 mg PO DAILY 90 days ezetimibe 10 mg PO DAILY 90 days ferrous fumarate 325 mg PO DAILY fluticasone propion-salmeterol 500-50 mcg/dose (Wixela Inhub) 1 ea PO BID fluticasone propionate 50 mcg/actuation 1 spray intranasal DAILY gabapentin 300 mg PO BID 90 days hydrochlorothiazide 25 mg PO DAILY ipratropium-albuterol 0.5 mg-3 mg(2.5 mg base)/3 mL 3 mL inhalation Q4-6H PRN 30 days lancets (FreeStyle Lancets) test daily lidocaine 4% (Aspercreme (lidocaine)) 1 patch topical DAILY PRN 30 days linaclotide (Linzess) 290 mcg PO QAM montelukast 10 mg PO DAILY nebulizers As directed pioglitazone 30 mg PO DAILY prednisone 40 mg (2 x 20 mg) PO DAILY pregabalin 300 mg PO BEDTIME 90 days [railing bathtub As directed] riboflavin (vitamin B2) 400 mg PO DAILY 30 days rimegepant (Nurtec ODT) 75 mg PO ONCE PRN 30 days MDD 1 tab semaglutide (Ozempic) 2 mg (0.75 mL) subcut QWEEK 4 weeks syringe with needle (Syringe) As Directed vibegron (Gemtesa) 75 mg PO DAILY walker (Ultra-Light Rollator misc) As directed Do you need a note to return to daycare/school/sports/work: No HPI Comments Details: Right-handed 69-yr-old female presents for neurological evaluation of cognitive difficulties and headaches PMH: cognitive dysfunction, DM, HTN, HLD, PMR, COPD, asthma, ILD. Pt states she has had a previous stroke. Pt is accompanied by her dtr, Seda. Patient is frustrated, as she feels that she keeps being told that her results are normal, however she has ongoing cognitive difficulties and headaches.? Patient expresses frustration over how long it takes to complete medical workup here, as compared to in the [place].? She notes that the brain MRI recommended after the last visit, ask patient believed the order was not entered at the time of the last visit, and thus the MRI was not completed until December (a review of the chart, the MRI order was placed at the initial February appointment, the plan was for patient to have the brain MRI was previously ordered thus a brain MRI was not order at the last visit).. ?Patient has not had the home sleep study. ?Patient also missed that she has not been receiving calls from the office-it appears that the primary contact number is another family member. It appears the neuropsych evaluation was not conducted, as multiple clinics do not take patient's insurance. She states that likely she will be returning to the [place] in early February for good, as she can not afford to hear the [place] without support of her family. Unfortunately, she has no health insurance coverage in the [place]. Today patient is also concerned that the brain MRI with/without her[place] who [place] [facility] [place] as [place], whereas the brain MRI without in October, in the [place] was considered abnormal due to empty sella turcica with question of mass effect on the pituitary gland. * 01/12/2025, brain MRI with and without contrast, [place] [facility] was read as unremarkable. * 10/29/2024, brain MRI without contrast, performed in the [place], intrarsellar arachnidocoel, with marked compression and flattening of the pituitary glands. * 10/29/2024, C-spine MRI without contrast, performed in the [place], report shows multilevel cervical osteochondrosis, C3-C4 central disc protrusion with mild compression on the thecal sac, global disc protrusion at C4-C5 with mild compression of the thecal sac, medial right medial disc protrusion at C5-C6 with mild thecal sac compression and likely radicular compression, C6-C7 right paramedial disc protrusion with compression of the thecal sac, straightening of the cervical lordosis. Today she is still experiencing speech difficulties, forgetting what she is taking about in either Portuguese or Green[place]ic. She reports forgetful of many tasks around the house. She previously had a hearing eval which demonstrated borderline normal to mild sensorineural hearing loss, and was advised to try hearing aides through a hearing aide service affiliated w/ her insurance company, [employer]. Patient reports she continues to have sudden sharp stabbing headaches, in frontal temporal region, which last less than a minute, occurring 1-6 x?s per day.? These are associated with blurry vision.? Reports Gabapentin is not effective. However in the [place], she was given pregabalin 300mg qd, which was stopped these headaches as well as helped her other body pains. Now just uses gabapentin prn as she does not have the pregabalin. She states she tolerated the pregabalin well. She denies any other headaches, or headaches associated with photophobia, phonophobia, nausea vomiting. She denies vision changes other than w/ the above headaches. She has a h/o VIRI- no longer using CPAP. VIRI severity unknown. Has endorse daytime sleepiness, needs to take naps, gasping arousals, snoring. She continues to have generalized body joint pain, as well as neck pain. In regards to her PMR management, patient states her follow-up appointment with Rheumatology was canceled by the rheumatology office, as the provider left the office.? She does not have a follow-up. Initial HPI from 02/26/2024: Pt reports she has had memory issues for at least 12 yrs. 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 She reports she had a lot of increased stress r/t working at [employer], home/life stressors, and increasing health issues- states fibromyalgia (but is referring to her PMR dx), difficulty controlling her HTN (developed in 1979 s/p preeclamsia). She states that she had a full work-up, multiple hospitalizations, and neuro-psych evaluations, and was diagnosed with pseudo-dementia. Thus, stopped working and went on short-term disability for about a year. 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 However, through 2013 to 2017, her cognitive symptoms slowly worsened/progressed to the point where she was forced to retire early. She states that she still feels her cognitive issues are worsening. She feels that she does not understand and speak as well, either in her primary language [place]ic or secondary language Portuguese. Feels that when many people are speaking, she cannot understand. She does have some progressive hearing loss- has not had an audiology eval yet. She does have VIRI, but is not using her CPAP. She may not be taking all of her supplement medications- not always taking potassium. Is taking Mag citrate- ? dose. Lives with her long-term partner between the [facility] and [place] (usually every summer-fall). Stays with her dtr when in the [place]. Ind w/ ADLs. Does need to take her time. Can forget the stove is on if leaves the kitchen. She manages her own finances. Occasionally may try to pay twice. Notes she needs to adjust to different payment systems between the 2 countries. She has a large home in - has house board operator to help. She is more social when she is in the , but does see her former co-workers when in [facility]. Her partner is a musician- so there is often music at home, and dancing, which she likes but recent headaches have made her more photophobic. She was exercising in the gym, but more recently the noise has been too bothersome. She is prone to joint and muscle pains, tends to have balls of tight muscles- has not seen rheumatology in a few yrs. She describes the headaches as: left sided headache for the past 5 months. She had this in the past, but not in the previous 3 yrs, denies usual headaches prior to the age of 50. The pain is pressure, a/w mid-frontal upper forehead swelling (like a little horn ), photophobia, phonophobia, occasionally nausea. The pain is strong for a few minutes, but then lays down with an eye mask. This happens about 3 x's per week- seems to be happening more often. Pt states she takes 2 500mg Ibuprofen . May occasionally take Tylenol. Uses Gabapentin for fibromyalgia pain. PENDING SALE TO [facility] Medical History Polymyalgia rheumatica Palpitations Anemia Migraines 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 [facility] systemic steroid user Syncope B12 deficiency Postmenopausal Diabetes mellitus Dyslipidemia COPD (chronic obstructive pulmonary disease) Essential hypertension Surgical History History of tonsillectomy Hx of cardiac catheterization History of colonoscopy History of total abdominal hysterectomy History of bilateral breast reduction surgery History of abdominoplasty Family History Father Hypertension Mother Hypertension Cancer Maternal Grandmother Stroke Social History Household Members: Family Housing: Apartment Alcohol intake: never Patient Tobacco Use Status: Former Tobacco user e-Cigarette/Vaping Use: Never Used Second Hand Smoke Exposure: No service: No Current occupational status: retired Cognitive needs: No Hearing needs: No Vision needs: No Review of Systems Neuro Reports as per HPI Physical Exam Vital Signs: Last Vital Signs Pulse 72 02/16/25 08:00 BP 120/70 02/16/25 08:00 Pulse Ox 94 02/16/25 08:00 Oxygen Delivery Method Room Air 02/16/25 08:00 BMI result Body Mass Index 35.8 Const General: cooperative, comfortable and no acute distress Nutritional Appearance: overweight Orientation/consciousness: patient oriented x3 HEENT Other: Mallampati grade IV Face and sinus: Yes normal facial exam and Yes face symmetric Neck Neck: Yes full ROM Resp Effort & Inspection: normal respiratory effort and able to speak in complete sentences Neuro Other: Speech is clear, fluent. Patient is able to follow and respond appropriately to we will simple and complex conversation. General: patient oriented x3 Cranial nerves: Yes CN's II-XII intact bilaterally Motor exam (neuro): 5/5 motor strength present throughout Psych Other: Patient is teary on and off throughout visit Appearance: grossly normal Mental Status: mental status grossly normal Speech and movement: Normal speech and movement present Attitude: cooperative Thought process: Normal thought process present Results Reviewed Results Reviewed: 02/26/24 06/04/24 10:54 10:46 WBC 6.5 12.9 H RBC 3.70 L 3.26 L Hgb 11.9 L 10.3 L D Hct 37.2 32.0 L D MCV 100.5 H 98.2 H MCH 32.2 31.6 MCHC 32.0 32.2 ESR 23 H 66 H Sodium 138 136 Potassium 4.5 4.6 Chloride 107 100 Carbon Dioxide 22 32 H Anion Gap 14 9 L Creatinine 0.84 1.14 Estimated GFR > 60 47 Random Glucose 91 107 Hemoglobin A1c % 5.6 Calcium 9.8 9.4 D Magnesium 2.2 Iron 62 TIBC 356 % Saturation 17 Unsat Iron Binding 294 Ferritin 67 Total Bilirubin 0.3 AST 30 ALT 27 Alkaline Phosphatase 90 Total Creatine Kinase 200 H C-Reactive Protein 7.39 H C-React Prot High Sens 3.6 H Total Protein 7.3 6.7 Albumin 3.8 3.4 L Triglycerides 66 Cholesterol 218 H LDL Cholesterol, Calc 122 H HDL Cholesterol 83 Vitamin B12 649 Methylmalonic Acid 200 25-OH Vitamin D Total 34 Folate 9.3 Homocysteine 10.1 TSH 1.32 Assessment & Plan Assessment & Plan (1) Cognitive dysfunction: Code(s): F09 - Unspecified mental disorder due to known physiological condition Category: Medical (2) Stabbing headache: Code(s): G44.85 - Primary stabbing headache Category: Medical (3) Hard of hearing: Comment: borderline normal to mild bilateral Code(s): H91.90 - Unspecified hearing loss, unspecified ear Category: Medical (4) Empty sella turcica: Code(s): E23.6 - Other disorders of pituitary gland Category: Medical (5) Migraine without aura: Code(s): G43.009 - Migraine without aura, not intractable, without status migrainosus Category: Medical (6) Cervical spinal stenosis: Code(s): M48.02 - Spinal stenosis, cervical region Category: Medical Plan For cognitive difficulties: Reviewed brain MRI reports, no findings to account for patient's cognitive symptoms. However, advise patient and daughter triggering and brain MRI disc from the [facility] to [facility] [place] to ask them to compare the 2 MRIs. Also to request a 2D copy of her [facility] [place] a patient returning to the [facility] Hold neuro-psych evaluation. 02/26/24- MMSE 26/30w/ very good clock drawing. Highly recommend patient to use hearing aides. Patient advised to follow-up with rheumatology- if she is going to move back to the , she is recommended to establish care with a straightening machine operator fair. Hold HST order, as patient will be returned to the . She states she will leave for [place] on February 24, with no intended return date. For for cervicalgia, cervical spinal canal stenosis and PMR and stabbing headaches: She may resume pregabalin 300 mg daily- this was effective for her stabbing headaches as well. We will request neurosurgeon evaluation. Future considerations, if [place] return the [place], brain/head MRA without and MRV with without. For migraine w/o aura prevention: Continue Riboflavin 400mg qam. Continue Mag citrate- max 400-500mg qhs. Continue Candesartan- used for HTN tx. ? For acute migraine w/o aura tx: Sparing use of Ibuprofen dose to < 400mg q 6 hrs- but use sparingly d/t HTN/DM dx. May hold Nurtec ODT 75mg qd prn (max 1 tab per day)- pt states headaches not bothersome enough to try. However, if renal function worsens, will revisit Nurtec. Acute tx contraindications: All triptans and DHE d/t HTN, HLD, h/o stroke. ? f/u upon review of above and in 6 months or sooner prn. Orders: Referrals Neurosurgery Referral E23.6 - Other disorders of pituitary gland, M48.02 - Spinal stenosis, cervical region Neuro Spine Referral E23.6 - Other disorders of pituitary gland, M35.3 - P olymyalgia rheumatica, M48.02 - Spinal stenosis, cervical region Medications: New pregabalin 300 mg PO BEDTIME 90 caps 1RF 90 days Coding Level of Care Code Est Pt Level 4 (01011) Diagnoses Cognitive dysfunction F09 Stabbing headache G44.85 Hard of hearing H91.90 Empty sella turcica E23.6 Migraine without aura G43.009 Cervical spinal stenosis M48.02
== END 2025-02-16 09:22 | disposition home or self-care (01) ==
LOC: HO.HSMS 07:49
PROVIDERS: PCP Internal Medicine; Visit Provider Nurse Practitioner Family
DX: R41.89 Other symptoms and signs involving cognitive functions and awareness (principal); G44.85 Primary stabbing headache; H91.93 Unspecified hearing loss, bilateral; E23.6 Other disorders of pituitary gland; G43.009 Migraine without aura, not intractable, without status migrainosus; M48.02 Spinal stenosis, cervical region
CPT/HCPCS: 99214

== ENCOUNTER → 2025-02-16 07:48 | Outpatient (BNVA) | payer OTHER, SELFPAY | PROVIDERS: PCP Internal Medicine; Visit Provider Nurse Practitioner Family | DX: M54.12 Radiculopathy, cervical region (principal); G43.009 Migraine without aura, not intractable, without status migrainosus; M48.02 Spinal stenosis, cervical region; E23.6 Other disorders of pituitary gland; G47.33 Obstructive sleep apnea (adult) (pediatric); H91.90 Unspecified hearing loss, unspecified ear; G44.85 Primary stabbing headache; F09 Unspecified mental disorder due to known physiological condition | CPT/HCPCS: 99212 ==